=== PATIENT | male | born 1945 | race African-American/Black ===

== ENCOUNTER 2020-04-22 11:36 | Inpatient (IN) | payer OTHER ==
[~2020-04-22] VITALS: Ht 190.5 cm; Wt 123.6 kg
[2020-04-22] MEDS: ENOXAPARIN SOD INJ 40 MG/0.4 ML SYR SC SCH (00:30)
--- OUTSIDE RECORDS SUMMARY | 2020-04-22 11:39 | XMS REPORT | Clinical Summary ---
Author Author [facility] Organization [place] [facility] Address Unknown Phone Unavailable Care Team Providers Care Animal Care Provider Name Role Phone Narendra Joel MD PCP Allergies Comments Active Allergy Reactions Severity Noted Date No Known Allergies 06/11/2016 Medications End Date Status Medication Sig Dispensed Refills Start Date Active potassium chloride Take 8 mEq by 0 (KLOR-CON) 20 mEq packet mouth daily. Active metoprolol tartrate Take 25 mg by 0 (LOPRESSOR) 25 mg tablet mouth daily. Active amLODIPine (NORVASC) 10 Take 10 mg by 0 mg tablet mouth daily. Active metFORMIN (GLUCOPHAGE) Take 500 mg 0 500 mg tablet by mouth 2 (two) times a day with meals. Active levothyroxine (SYNTHROID) Take 175 mcg 0 175 mcg tablet by mouth daily. Active furosemide (LASIX) 40 mg Take 40 mg by 0 tablet mouth every evening. Active atorvastatin (LIPITOR) 10 Take 40 mg by 0 MG tablet mouth nightly. Active cefprosil (CEFZIL) 250 MG Take 250 mg 0 10/0 /201 tablet by mouth 2 9 (two) times a day. Active FLOVENT HFA 110 Inhale 2 3 mcg/actuation inhaler puffs 2 (two) 9 times a day. 09/11/2019 Discontinued (Stop Taking at Discharge) furosemide (LASIX) 40 mg Take 80 mg by 0 tablet mouth daily. 04/22/2019 levothyroxine (SYNTHROID, Take 1 tablet 30 tablet 2 LEVOXYL) 175 mcg tablet (175 mcg 9 total) by mouth daily for 30 days. 09/11/2019 Discontinued (Stop Taking at Discharge) predniSONE (DELTASONE) 10 Take 10 mg by 0 mg tablet mouth daily. 10/11/2019 apixaban (ELIQUIS) 5 mg Take 1 tablet 60 tablet 0 tablet (5 mg total) 9 by mouth 2 (two) times a day for 30 days. 10/11/2019 chlordiazepoxide-clidiniu Take 1 120 capsule 0 m (LIBRAX) 5-2.5 mg per capsule by 9 capsule mouth 4 (four) times a day before meals and nightly for 30 days. 10/12/2019 glimepiride (AMARYL) 4 MG Take 1 tablet 30 tablet 0 tablet (4 mg total) 9 by mouth daily with breakfast for 30 days. Active Problems Problem Noted Date Non-toxic multinodular goiter 03/21/2019 Obesity, Class II, BMI 35-39.9, with comorbidity 04/2016 DVT (deep venous thrombosis) 06/27/2016 Hypokalemia 06/27/2016 Anemia of other chronic disease 06/27/2016 Hyperglycemia 06/27/2016 DM neuropathy, type II diabetes mellitus 06/27/2016 Metabolic syndrome 06/27/2016 UTI (urinary tract infection) 06/27/2016 Acute massive pulmonary embolism 06/26/2016 Meningitis 06/26/2016 Essential hypertension 06/26/2016 Metabolic encephalopathy 06/26/2016 Acute hypernatremia 06/26/2016 Hypocalcemia 06/26/2016 Hyperglycemia due to type 2 diabetes mellitus 2015 Thyroid mass of unclear etiology 06/26/2016 Acute respiratory alkalosis 06/26/2016 Hyperlipidemia 06/26/2016 Hematuria 06/26/2016 Lumbar radiculopathy 06/12/2016 Encounters Care Team Description Date Type Specialty Gill Del Valle MA Appointment 12/19/2019 Documentation Cardiovascular Kane Posada MD Acute embolism and thrombosis of deep ve in of both upper extremities (HCC) (Primary Dx) 09/19/2019 Office Visit Cardiovascular Gill Del Valle MA Acute deep vein thrombosis (DVT) of righ t upper extremity, unspecified vein (HCC) (Primary Dx) 09/19/2019 Orders Only Cardiovascular Narendra Joel MD Acute embolism and thrombosis of deep ve in of right upper extremity (HCC) 09/18/2019 Hospital Radiology Encounter Narendra Joel MD Acute embolism and thrombosis of deep ve in of right upper extremity (HCC) (Primary Dx) 09/18/2019 Transcribe Access Orders Catherine Westbrook MA Appointment 09/18/2019 Documentation Cardiovascular Re Colindres, CHANTELL 09/11/2019 Patient Quality Outreach Alonzo Samaniego MD Sarti, Fernando, MD Joglekar, Swati, MD Acute deep vein thrombosis (DVT) of axil syed vein of right upper extremity (HCC) (Primary Dx); Arm swelling 09/05/2019 [facility] Internal Ri dicine - Encounter 09/11/2019 09/05/2019 Travel after 04/22/2019 Social History Date Tobacco Use Types Packs/Day Years Used Never Smoker Smokeless Tobacco: Never Used Drinks/Week oz/Week Comments Alcohol Use No Sex Assigned at Date Recorded Not on file Industry Job Start Date Occupation Not on file Not on file Not on file Travel End Travel History Travel Start No recent travel history available. Last Filed Vital Signs Reading Time Taken Comments Vital Sign 126/65 09/19/2019 9:47 AM CDT Blood Pressure 95 09/19/2019 9:47 AM CDT Pulse 36.2 C (97.2 F) 09/19/2019 9:47 AM CDT Temperature 18 09/19/2019 9:47 AM CDT Respiratory Rate 100% 09/19/2019 9:47 AM CDT Oxygen Saturation - - Inhaled Oxygen Concentration 126 kg (278 lb 9.6 oz) 09/19/2019 9:47 AM CDT Weight 185.4 cm (6' 1") 09/19/2019 9:47 AM CDT Height 36.76 09/19/2019 9:47 AM CDT Body Mass Index Plan of Treatment Health Maintenance Due Date Last Done Comments DIABETIC RETINAL EYE EXAM 1945 DIABETIC FOOT EXAM 1955 COLONOSCOPY SCREENING 1995 SHINGLES VACCINES (#1) 1995 65+ PNEUMOCOCCAL VACCINE 2010 (1 of 2 - PCV13) URINE MICROALBUMIN 06/28/2018 06/28/2017 INFLUENZA VACCINE 06/22/2020 Implants Device Identifier Shelf Expiration Date Model / Serial / L ot Implanted Type Area Manufactur er 01/20/2024 [id number] / / Clip Ligtng Weck Hemoclip Plus W/ Medical N/A: N/A WECK Tape Ti Sm - [id number] Clips for CLOSURE Implanted: Qty: 1 on 03/21/2019 by Internal SYS Dalila Calloway MD at [facility] Use OPC [id number] / / Clip Ligtng John Hemoclip Plus W/ Medical N/A: N/A WECK Tape Ti - [id number] Clips for CLOSURE Implanted: 03/21/2019 at [facility] OPC Internal SYSTE MS (Quantity not on file) Use 09/21/2023 [id number] / / [id number] Postal Service Window Clerk Mltpl Clip Ligaclip Ligtng Surgical N/A: N/A ETHICON 20 Clips 23.8cm [facility] - [id number] Implants; END O Implanted: Qty: 1 on 03/21/2019 by Expanders; JOSÉ Dalila Anthony MD at [facility] Extenders; OPC Surgical Wires Procedures Comments Procedure Name Priority Date/Time Associated Diag nosis US DUPLEX VENOUS UPPER Routine 09/18/2019 Acute e mbolism and EXTREMITY RIGHT 5:45 PM CDT thrombosis of deep vein of right upper extremity (HCC) POC GLUCOSE Routine 09/11/2019 10:35 AM CDT POC GLUCOSE Routine 09/11/2019 6:45 AM CDT PARTIAL THROMBOPLASTIN Routine 09/11/2019 TIME (PTT) 5:56 AM CDT ESTIMATED GFR Routine 09/11/2019 5:56 AM CDT IONIZED CALCIUM Routine 09/11/2019 5:56 AM CDT MAGNESIUM LEVEL Routine 09/11/2019 5:56 AM CDT COMPREHENSIVE METABOLIC Routine 09/11/2019 PANEL 5:56 AM CDT PROTHROMBIN TIME WITH INR Routine 09/11/2019 5:56 AM CDT CBC HEMOGRAM Routine 09/11/2019 5:56 AM CDT POC GLUCOSE Routine 09/10/2019 8:39 PM CDT PARTIAL THROMBOPLASTIN Timed 09/10/2019 TIME (PTT) 8:15 PM CDT POC GLUCOSE Routine 09/10/2019 4:18 PM CDT PARTIAL THROMBOPLASTIN Timed 09/10/2019 TIME (PTT) 11:40 AM CDT POC GLUCOSE Routine 09/10/2019 11:16 AM CDT POC GLUCOSE Routine 09/10/2019 6:42 AM CDT ESTIMATED GFR Routine 09/10/2019 5:23 AM CDT IONIZED CALCIUM Routine 09/10/2019 5:23 AM CDT MAGNESIUM LEVEL Routine 09/10/2019 5:23 AM CDT COMPREHENSIVE METABOLIC Routine 09/10/2019 PANEL 5:23 AM CDT PROTHROMBIN TIME WITH INR Routine 09/10/2019 5:23 AM CDT CBC HEMOGRAM Routine 09/10/2019 5:23 AM CDT PARTIAL THROMBOPLASTIN Timed 09/10/2019 TIME (PTT) 12:43 AM CDT POC GLUCOSE Routine 09/09/2019 7:34 PM CDT PARTIAL THROMBOPLASTIN STAT 09/09/2019 TIME (PTT) 6:29 PM CDT POC GLUCOSE Routine 09/09/2019 5:11 PM CDT PARTIAL THROMBOPLASTIN Timed 09/09/2019 TIME (PTT) 2:59 PM CDT POC GLUCOSE Routine 09/09/2019 12:01 PM CDT POC GLUCOSE Routine 09/09/2019 6:45 AM CDT CBC HEMOGRAM Routine 09/09/2019 6:38 AM CDT PARTIAL THROMBOPLASTIN Routine 09/09/2019 TIME (PTT) 6:38 AM CDT PROTHROMBIN TIME WITH INR Routine 09/09/2019 6:38 AM CDT POC GLUCOSE Routine 09/08/2019 9:33 PM CDT POC GLUCOSE Routine 09/08/2019 5:11 PM CDT POC GLUCOSE Routine 09/08/2019 4:26 PM CDT POC GLUCOSE Routine 09/08/2019 1:37 PM CDT POC GLUCOSE Routine 09/08/2019 1:17 PM CDT POC GLUCOSE Routine 09/08/2019 1:06 PM CDT POC GLUCOSE Routine 09/08/2019 10:02 AM CDT CBC HEMOGRAM Timed 09/08/2019 7:02 AM CDT PARTIAL THROMBOPLASTIN Routine 09/08/2019 TIME (PTT) 7:02 AM CDT PROTHROMBIN TIME WITH INR Routine 09/08/2019 7:02 AM CDT POC GLUCOSE Routine 09/08/2019 6:06 AM CDT STREP SCREEN CULTURE Routine 09/07/2019 10:05 PM CDT POC GLUCOSE Routine 09/07/2019 8:46 PM CDT THYROID STIMULATING Routine 09/07/2019 HORMONE 6:21 PM CDT POC GLUCOSE Routine 09/07/2019 4:03 PM CDT PARTIAL THROMBOPLASTIN Timed 09/07/2019 TIME (PTT) 12:12 PM CDT POC GLUCOSE Routine 09/07/2019 10:46 AM CDT POC GLUCOSE Routine 09/07/2019 6:39 AM CDT CBC HEMOGRAM Timed 09/07/2019 6:05 AM CDT PROTHROMBIN TIME WITH INR Routine 09/07/2019 6:05 AM CDT POC GLUCOSE Routine 09/07/2019 12:56 AM CDT PARTIAL THROMBOPLASTIN Timed 09/06/2019 TIME (PTT) 11:30 PM CDT POC GLUCOSE Routine 09/06/2019 8:23 PM CDT POC GLUCOSE Routine 09/06/2019 5:01 PM CDT POC GLUCOSE Routine 09/06/2019 1:42 PM CDT PARTIAL THROMBOPLASTIN Timed 09/06/2019 TIME (PTT) 10:17 AM CDT POC GLUCOSE Routine 09/06/2019 8:51 AM CDT ESTIMATED GFR Routine 09/06/2019 5:50 AM CDT PARTIAL THROMBOPLASTIN Routine 09/06/2019 TIME (PTT) 5:50 AM CDT PROTHROMBIN TIME WITH INR Routine 09/06/2019 5:50 AM CDT HC COMPLETE BLD COUNT Routine 09/06/2019 W/AUTO DIFF 5:50 AM CDT BASIC METABOLIC PANEL Routine 09/06/2019 5:50 AM CDT TYPE AND SCREEN Routine 09/06/2019 5:50 AM CDT POC GLUCOSE Routine 09/06/2019 4:53 AM CDT PARTIAL THROMBOPLASTIN Timed 09/06/2019 TIME (PTT) 2:05 AM CDT POC GLUCOSE Routine 09/05/2019 10:[address] ANGIOGRAM PE CHEST STAT 09/05/2019 9:51 PM CDT BETA-2 GLYCOPROTEIN 1 Routine 09/05/2019 ANTIBODY, IGG AND IGM 8:18 PM CDT CARDIOLIPIN ANTIBODIES Routine 09/05/2019 8:18 PM CDT PROTHROMBIN MUTATION, Routine 09/05/2019 FACTOR II, BY PCR 8:18 PM CDT FACTOR V LEIDEN BY PCR Routine 09/05/2019 8:18 PM CDT PROTEIN S ANTIGEN, FREE Routine 09/05/2019 7:27 PM CDT PROTEIN S ANTIGEN, TOTAL Routine 09/05/2019 7:27 PM CDT LUPUS ANTICOAGULANT PANEL Routine 09/05/2019 7:27 PM CDT FUNCTIONAL PROTEIN S Routine 09/05/2019 7:27 PM CDT FUNCTIONAL PROTEIN C Routine 09/05/2019 7:27 PM CDT ANTITHROMBIN III LEVEL Routine 09/05/2019 7:27 PM CDT C-REACTIVE PROTEIN Routine 09/05/2019 7:27 PM CDT FACTOR VIII ASSAY Routine 09/05/2019 7:27 PM CDT VENOUS BLOOD GAS Routine 09/05/2019 7:27 PM CDT US DUPLEX VENOUS UPPER STAT 09/05/2019 EXTREMITY RIGHT 6:45 PM CDT ECG 12-LEAD STAT 09/05/2019 6:43 PM CDT XR CHEST 2 VW STAT 09/05/2019 6:40 PM CDT ECG ED PRELIMINARY Routine 09/05/2019 INTERPRETATION 6:27 PM CDT ANTI XA, UNFRACTIONATED STAT 09/05/2019 5:25 PM CDT PARTIAL THROMBOPLASTIN STAT 09/05/2019 TIME (PTT) 5:25 PM CDT PROTHROMBIN TIME WITH INR STAT 09/05/2019 5:25 PM CDT B NATRIURETIC PEPTIDE STAT 09/05/2019 5:25 PM CDT D-DIMER STAT 09/05/2019 5:25 PM CDT ESTIMATED GFR Routine 09/05/2019 4:44 PM CDT COMPREHENSIVE METABOLIC Routine 09/05/2019 PANEL 4:44 PM CDT HC COMPLETE BLD COUNT Routine 09/05/2019 W/AUTO DIFF 4:44 PM CDT after 04/22/2019 Results * Us duplex venous upper extremity (09/18/2019 5:45 PM CDT) Only the most recent of 2 results within the time period is included. Specimen Narrative Performed At EXAMINATION: US DUPLEX VENOUS UPPER EXTREMITY RIGHT [facility] CLINICAL HISTORY: I82.621 Acute embol ism and thrombosis of deep veins of right upper extremity, DVT confirmed just dis charged from hospital severe right arm swell ling COMPARISON: None. TECHNIQUE: Grayscale, color Doppler, and spectral waveform analysis of the right upper extremity deep venous syste m was performed. FINDINGS: The right internal jugular vein demonst rates normal flow and compressibility. The right subclavian, axillary, , basil ic, cephalic, and forearm veins reveal no evidence of thrombosis. The veins demon strate normal Doppler flow and normal compressibility. There is venous thrombosis seen within the right brachial vein. The right brachial vein does not compress. The contralateral subclavian vein is pa tent. IMPRESSION: 1. Findings consistent with venous thro mbosis seen within the right brachial vein. 2. There is no other venous thrombosis. 3. These findings were called to Dr. SA GARCIA after completion of the examination. 4. The patient is currently on anticoag ulants. [id number] Procedure Note Hm Interface, Radiology Results Incoming - 09/18/2019 6:13 PM CDT EXAMINATION: US DUPLEX VENOUS UPPER EXTREMITY RIGHT CLINICAL HISTORY: I82.621 Acute embolism and thrombosis of deep veins of right upper extremity, DVT confirmed just discharged from hospital severe right arm swell ling COMPARISON: None. TECHNIQUE: Grayscale, color Doppler, and spectral waveform analysis of the right upper extremity deep venous system was performed. FINDINGS: The right internal jugular vein demonstrates normal flow and compressibility. The right subclavian, axillary, , basilic, cephalic, and forearm veins reveal no evidence of thrombosis. The veins demonstrate normal Doppler flow and normal compressibility. There is venous thrombosis seen within the right brachial vein. The right brachial vein does not compress. The contralateral subclavian vein is patent. IMPRESSION: 1. Findings consistent with venous throm bosis seen within the right brachial vein. 2. There is no other venous thrombosis. 3. These findings were called to Dr. RAH HEALY after completion of the examination. 4. The patient is currently on anticoagu lants. [id number] Performing Organization Address City/[facility] Ph one Number [facility] [address] [place] [address] * POC glucose (09/11/2019 10:35 AM CDT) Only the most recent of 29 results within the time period is included. [facility] POC glucose 160 (H) 65 - 100 mg/dL [place] Comment: JAIN Meter ID: [id number] FILLMORE Sap Architect: [facility] Specimen Performing Organization Address [facility] Ph one Number [facility] [place] [address] [place] [address] PATHOLOGY AND [facility] MEDICINE [address] * Estimated GFR (09/11/2019 5:56 AM CDT) Only the most recent of 4 results within the time period is included. [facility] Estimated GFR 76 mL/min/1.73 m2 [place] Comment: JAIN Catergory Units [facility] G1 >=90 Normal or high G2 60-89 Mildly decreased G3a 45-59 Mildly to moderately decreased G3b 30-44 Moderately to severely decreased G4 15-29 Severely decreased G5 <15 Kidney failure The eGFR was calculated using the Chronic Kidney Disease Epidemiology Collaboration (CKD-EPI) equation. Interpretation is based on recommendations of the National Kidney Foundation-Kidney Disease Outcomes Quality Initiative (NKF-KDOQI) published in 2014. Specimen Plasma specimen Performing Organization Address City/[facility] Ph one Number [facility] DEPARTMENT OF [address] [place] [address] PATHOLOGY AND GENOMIC MEDICINE [address] [place] [address] HOSPITAL * Partial thromboplastin time, activated (09/11/2019 5:56 AM CDT) Only the most recent of 14 results within the time period is included. Pathologist [facility] PTT 86.0 (H) 23.0 - 36.0 sec [place] Comment: JAIN PTT therapeutic range for FILL[facility] unfractionated heparin is HOSPITAL 61.0-112.0 seconds which corresponds to Anti-Xa 0.3-0.7 U/ml. Specimen Blood Performing Organization Address City/[facility] Ph one Number [facility] [place] [address] [place] [address] PATHOLOGY AND GENOMIC MEDICINE [address] * Prothrombin time with INR (09/11/2019 5:56 AM CDT) Only the most recent of 7 results within the time period is included. [facility] Prothrombin 14.1 11.5 - 14.5 sec [facility] INR 1.12 [place] Comment: JAIN For patients on anticoagulant FILLMORE therapy, reference ranges HOSPITAL below: Indication: INR Value Treatment of Venous Thrombosis, 2.0-3.0 pulmonary emboli, or prophylaxis of a venous thrombosis, or systemic emboli. High dose, high risk patients 3.0-4.5 with mechanical valves. NOTE: INR values over 3.0 are sometimes associated with gastrointestinal hemorrhage, especially values over 4.0. Specimen Blood Performing Organization Address City/[facility] Ph one Number [facility] DEPARTMENT OF [address] [place] [address] PATHOLOGY AND GENOMIC MEDICINE [facility] [address] [place] [address] * CBC hemogram (09/11/2019 5:56 AM CDT) Only the most recent of 5 results within the time period is included. [facility] WBC 5.5 4.2 - 11.0 k/uL [facility] RBC 4.65 4.04 - 5.86 m/uL [facility] HGB 13.1 13.0 - 17.3 g/dL [facility] HCT 41.3 34.0 - 45.0 % [facility] MCV 88.8 80.0 - 98.0 fL [facility] MCH 28.2 27.0 - 34.0 pg [facility] MCHC 31.7 31.5 - 36.5 g/dL [facility] RDW - SD 46.0 37.0 - 51.0 fL [facility] MPV 11.9 (H) 7.4 - 10.4 fL [facility] Platelet count 210 150 - 400 k/uL [facility] Nucleated RBC 0.00 /100 WBC [facility] Specimen Blood Performing Organization Address City/[facility] Ph one Number [facility] DEPARTMENT OF [address] [place] [address] PATHOLOGY AND GENOMIC MEDICINE [address] * Magnesium level (09/11/2019 5:56 AM CDT) Only the most recent of 2 results within the time period is included. Magnesium 1.70 1.60 - 2.40 mg/dL [facility] Specimen Plasma specimen Performing Organization Address City/[facility] Ph one Number [facility] DEPARTMENT OF [address] [place] [address] PATHOLOGY AND GENOMIC MEDICINE [address] * Ionized calcium (09/11/2019 5:56 AM CDT) Only the most recent of 2 results within the time period is included. pH 7.41 [facility] Ionized calcium 1.13 1.11 - 1.32 mmol/L [facility] Specimen Plasma specimen Performing Organization Address City/[facility] Ph one Number [facility] DEPARTMENT OF [address] [place] [address] PATHOLOGY AND GENOMIC MEDICINE [facility] [address] [place] [address] * Comprehensive metabolic panel (09/11/2019 5:56 AM CDT) Only the most recent of 3 results within the time period is included. Sodium 136 135 - 150 mEq/L [facility] Potassium 3.5 3.5 - 5.0 mEq/L [facility] Chloride 98 98 - 112 mEq/L [facility] CO2 22 (L) 24 - 31 mmol/L [facility] Anion gap 16@ANIO (H) 7 - 15 mEq/L [facility] BUN 18 7 - 18 mg/dL [facility] Creatinine 1.10 0.70 - 1.20 mg/dL [facility] Glucose 172 (H) 65 - 100 mg/dL [facility] Calcium 9.7 8.8 - 10.2 mg/dL [facility] Protein 8.0 6.3 - 8.3 g/dL [facility] Albumin 3.7 3.5 - 5.0 g/dL [facility] A/G ratio 0.9 0.7 - 3.8 [facility] Alkaline 66 0 - 129 U/L [place] phosphatase [facility] AST 27 10 - 50 U/L [facility] ALT 17 5 - 50 U/L [facility] Total bilirubin 0.8 0.2 - 1.2 mg/dL [facility] Specimen Plasma specimen Performing Organization Address City/[facility] Ph one Number [facility] DEPARTMENT OF [address] [place] [id number] PATHOLOGY AND GENOMIC MEDICINE [facility] [address] * Strep screen culture (09/07/2019 10:05 PM CDT) Pathologist [facility] Strep screen No beta hemolytic Streptococci [place] N culture isolate isolated JAIN Comment: HOSPITAL Specimen Information Specimen Source: Throat Specimen Site: Not otherwise specified Specimen Throat - Not otherwise specified Performing Organization Address City/[facility] Ph one Number [facility] DEPARTMENT OF [address] [place] [address] PATHOLOGY AND GENOMIC MEDICINE [id number] [place] [address] * Thyroid stimulating hormone (09/07/2019 6:21 PM CDT) TSH 2.71 0.27 - 4.20 uIU/mL [facility] Specimen Plasma specimen Performing Organization Address City/State/Zipcode Ph one Number [facility] DEPARTMENT OF [address] [place] [address] PATHOLOGY AND GENOMIC MEDICINE [facility] [address] [facility] [place]. [address] * CBC with platelet and differential (09/06/2019 5:50 AM CDT) Only the most recent of 2 results within the time period is included. WBC 9.0 4.2 - 11.0 k/uL [facility] RBC 4.27 4.04 - 5.86 m/uL [facility] HGB 12.3 (L) 13.0 - 17.3 g/dL [facility] HCT 38.4 34.0 - 45.0 % [facility] MCV 89.9 80.0 - 98.0 fL [facility] MCH 28.8 27.0 - 34.0 pg [facility] MCHC 32.0 31.5 - 36.5 g/dL [facility] RDW - SD 47.2 37.0 - 51.0 fL [facility] MPV 12.2 (H) 7.4 - 10.4 fL [facility] Platelet count 146 (L) 150 - 400 k/uL [facility] Nucleated RBC 0.00 /100 WBC [facility] Neutrophils 66.4 (H) 36.0 - 66.0 % [facility] Lymphocytes 19.2 (L) 24.0 - 44.0 % [facility] Monocytes 11.3 (H) 0.0 - 6.0 % [facility] Eosinophils 1.8 0.0 - 6.0 % [facility] Basophils 0.2 0.0 - 1.2 % [facility] Immature 1.1 (H) 0.0 - 1.0 % [place] granulocytes [facility] Specimen Blood Performing Organization Address City/State/Zipcode Ph one Number [facility] DEPARTMENT OF [facility] [place] [address] PATHOLOGY AND GENOMIC MEDICINE [facility] [place] [address] HOSPITAL * Type and screen (09/06/2019 5:50 AM CDT) Pathologist [facility] ABO grouping O [facility] Rh type POS [facility] Antibody screen NEG [place] (gel) [facility] Specimen Blood Performing Organization Address City/[facility] Ph one Number [facility] DEPARTMENT OF [facility] [place] [address] PATHOLOGY AND GENOMIC MEDICINE [facility] Kr[address] * Basic metabolic panel (09/06/2019 5:50 AM CDT) [facility] Sodium 137 135 - 150 mEq/L [facility] Potassium 3.3 (L) 3.5 - 5.0 mEq/L [facility] Chloride 98 98 - 112 mEq/L [place] [facility] CO2 26 24 - 31 mmol/L [facility] Anion gap 13@ANIO 7 - 15 mEq/L [facility] BUN 18 7 - 18 mg/dL [facility] Creatinine 1.00 0.70 - 1.20 mg/dL [facility] Glucose 126 (H) 65 - 100 mg/dL [facility] Calcium 8.9 8.8 - 10.2 mg/dL [facility] Specimen Plasma specimen Performing Organization Address City/[facility] Ph one Number [facility] DEPARTMENT OF [facility] [place] [address] PATHOLOGY AND GENOMIC MEDICINE [facility] [place] [address] HOSPITAL * CT Angiogram Pe Chest (09/05/2019 9:51 PM CDT) Specimen Narrative Performed At EXAMINATION: CT ANGIOGRAM PE CHEST HM [facility] CLINICAL HISTORY:74 years Male PE suspe cted intermediate prob positive D-dimer TECHNIQUE: CT angiographic images of the chest were obtained during intravenous administration of iodinated contrast. Computerized reformatted images and 3-D MIP images were also obt ained and archived (CT pulmonary embolus protocol). CT imaging was performed with iterative reconstruction techniques and/or automated exposure control to reduce radiation dose. COMPARISON: September 06, 2017. FINDINGS: CHEST: Pulmonary arteries: Adequate opacificat ion of the pulmonary arteries without evidence of acute pulmonary embolism. Lungs and airways: No acute airspace disease or suspicious pulmonary nodules. Pleura: Stable right lower lung pleural -based nodularity and calcifications. No pleural effusion or pneumothorax. Mediastinum and lymph nodes: No lymphad enopathy. Cardiovascular: The heart size is marcus l. Trace pericardial effusion. Mild coronary artery calcifications are pres ent. Mild atherosclerotic calcification of the aortic arch to severe. A right I J and subclavian venous stents. Upper abdomen: No suspicious abnormalit ies.The pancreas is noted to be atrophic. Bones: Severe degenerative changes at T 11/T12. No acute or suspicious osseous abnormality. Other: *Postoperative findings of partial righ t thyroidectomy. The left thyroid lobe is prominent, this may be further evaluate d with ultrasound if clinically indicated. *Gynecomastia is noted bilaterally. IMPRESSION: 1.No CT findings of acute embolism. 2.Other findings as above. [id number] Procedure Note Hm Interface, Radiology Results Incoming - 09/05/2019 10:03 PM CDT EXAMINATION: CT ANGIOGRAM PE CHEST CLINICAL HISTORY:74 years Male PE suspected intermediate prob positive D-dimer TECHNIQUE: CT angiographic images of the chest were obtained during intravenous administration of iodinated contrast. Computerized reformatted images and 3-D MIP images were also obtained and archived (CT pulmonary embolus protocol). CT imaging was performed with iterative reconstruction techniques and/or automated exposure control to reduce radiation dose. COMPARISON: September 06, 2017. FINDINGS: CHEST: Pulmonary arteries: Adequate opacification of the pulmonary arteries without evidence of acute pulmonary embolism. Lungs and airways: No acute airspace disease or suspicious pulmonary nodules. Pleura: Stable right lower lung pleural-based nodularity and calcifications. No pleural effusion or pneumothorax. Mediastinum and lymph nodes: No lymphadenopathy. Cardiovascular: The heart size is normal. Trace pericardial effusion. Mild coronary artery calcifications are present. Mild atherosclerotic calcification of the aortic arch to severe. A right IJ and subclavian venous stents. Upper abdomen: No suspicious abnormalities.The pancreas is noted to be atrophic. Bones: Severe degenerative changes at T11/T12. No acute or suspicious osseous abnormality. Other: *Postoperative findings of partial right thyroidectomy. The left thyroid lobe is prominent, this may be further evaluated with ultrasound if clinically indicated. *Gynecomastia is noted bilaterally. IMPRESSION: 1.No CT findings of acute embolism. 2.Other findings as above. 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 The HOSPITAL nucleotide at position 97619 of the Factor II gene is G on both alleles. Prothrombin Wild Type Normal [place] gene mutation [facility] Prothrombin See link below for PDF Lab [place] gene mutation ReportComment: Case Number: JAIN [id number] [facility] Specimen Blood Narrative Performed At Reviewed and signed by Sandra Cote, PhD ([facility]) [facility] Performing Organization Address [facility] one Number [facility] DEPARTMENT OF [address] [place] [address] PATHOLOGY AND GENOMIC MEDICINE [address] * Beta-2 glycoprotein 1 antibody, IgG and IgM (09/05/2019 8:18 PM CDT) Beta-2 <9.4 0.0 - 20.0 [place] glycoprotein 1 Comment: JAIN antibody, IgG Negative =<20.0 [facility] Positive >20.0 [facility] Beta-2 <9.4 0.0 - 20.0 [place] glycoprotein 1 Comment: JAIN antibody, IgM Negative =<20.0 [facility] Positive >20.0 [facility] Specimen Blood Performing Organization Address [facility] one Number [facility] DEPARTMENT OF [address] [place] [address] PATHOLOGY AND GENOMIC MEDICINE [address] * Cardiolipin antibodies (09/05/2019 8:18 PM CDT) Cardiolipin IgG 3 0 - 14 GPL [place] Comment: JAIN Negative <15 GPL HOSPITAL Indeterminate 15-20 GPL Positive >20 GPL Cardiolipin IgM 7 0 - 12 MPL [place] Comment: JAIN Negative <13 [facility]PL [facility]OSPITAL Indeterminate 13-20 MPL Positive >20 MPL Specimen Blood Performing Organization Address [facility] one Number [facility] DEPARTMENT OF [address] [place] [address] PATHOLOGY AND [facility] MEDICINE [address] * Factor V leiden by PCR (09/05/2019 8:18 PM CDT) Pathologist [facility] Interpretation 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 The nucleotide at [facility] position 1691 of the Factor V gene is G on both alleles. Factor V Leiden Wild Type [facility] Factor V Leiden See link below for PDF Lab [place] ReportComment: Case Number: JAIN [id number] HOSPITAL Specimen Blood Narrative Performed At Reviewed and signed by Sandra Cote, PhD ([facility]) [facility] Performing Organization Address [facility] one Number [facility] DEPARTMENT OF [address] [place] [address] PATHOLOGY AND [facility] MEDICINE [address] * Protein S antigen, total (09/05/2019 7:27 PM CDT) Pathologist [facility] Protein S Ag, 155 (H) 71 - 150 % [place] total [facility] Specimen Blood Performing Organization Address [facility] one Number [facility] DEPARTMENT OF [address] [place] [address] PATHOLOGY AND GENOMIC MEDICINE [address] * Protein S antigen, free (09/05/2019 7:27 PM CDT) [facility] Protein S Ag, 78 62 - 160 % [place] free [facility] Specimen Blood Performing Organization Address [facility] Ph one Number [facility] DEPARTMENT OF [address] [place] [address] PATHOLOGY AND [facility] MEDICINE [address] * Functional protein S (09/05/2019 7:27 PM CDT) Pathologist [facility] Functional 66 (L) 74 - 160 % [place] protein S Comment: JAIN Functional Protein S HOSPITAL performed. If result is decreased Total and Free Protein S Antigen will be performed. Specimen Blood Performing Organization Address City/[facility] Ph one Number [facility] DEPARTMENT OF [address] [place] [address] PATHOLOGY AND GENOMIC MEDICINE [address] * Functional protein C (09/05/2019 7:27 PM CDT) [facility] Functional 114 70 - 165 % [place] protein C [facility] Specimen Blood Performing Organization Address City/[facility] Ph one Number [facility] DEPARTMENT OF [address] [place] [address] PATHOLOGY AND GENOMIC MEDICINE [address] * Lupus anticoagulant panel (09/05/2019 7:27 PM CDT) [facility] Prothrombin 13.2 11.5 - 14.5 sec [place] time [facility] INR 1.0 [place] Comment: JAIN The International Normalized HOSPITAL Ratio (INR) is a therapeutic monitoring tool for patients who are stable on oral anticoagulant therapy. An INR of 2.0-3.0 is suggested for deep vein thrombosis/pulmonary embolism. PTT 32.0 23.0 - 36.0 sec [place] Comment: JAIN PTT therapeutic range for HOSPITAL unfractionated heparin is 61.0-112.0 seconds which corresponds to Anti-Xa 0.3-0.7 U/ml. PTT lupus 32.2 27.0 - 38.0 sec [place] anticoagulant Comment: JAIN Lupus anticoagulant (LA) panel HOSPITAL consists of PT, PTT, PTT-LA, and DRVVT. If the PTT-LA is above the normal range, the hexagonal phospholipid will be performed. If the DRVVT is above the normal range, the DRVVC confirmatory test will be performed. A normal result for both the DRVVT and the PTT-LA means the patient is negative for lupus anticoagulant. The patient is considered positive for lupus anticoagulant if either the Ratio SCR/CONF or the hexagonal phospholipid is high (positive) on two occassions at least six weeks apart. Clinical confirmation is also required for diagnosis. DRVVT 30.3 29.0 - 46.0 sec [place] Comment: JAIN This test has been modified HOSPITAL from the manufacturers instructions. The performance characteristics were determined by [facility] in a manner consistent with CLIA requirements. This test has not been cleared or approved by the U.S. Food and Drug Administration. Specimen Blood Performing Organization Address City/[facility] one Number [facility] DEPARTMENT OF [address] [place] [address] PATHOLOGY AND GENOMIC MEDICINE [address] * Antithrombin III level (09/05/2019 7:27 PM CDT) Antithrombin 98 80 - 130 % [facility] Specimen Blood Performing Organization Address [facility] one Number [facility] DEPARTMENT OF [address] [place] [address] PATHOLOGY AND GENOMIC MEDICINE [address] * Factor VIII assay (09/05/2019 7:27 PM CDT) Factor VIII 240 (H) 60 - 150 % [facility] Comment: JAIN This test has been modified HOSPITAL from the manufacturers instructions. The performance characteristics were determined by [facility] in a manner consistent with CLIA requirements. This test has not been cleared or approved by the U.S. Food and Drug Administration. Specimen Blood Performing Organization Address [facility] one Number [facility] DEPARTMENT OF [address] [place] [address] PATHOLOGY AND GENOMIC MEDICINE [address] * C-reactive protein (09/05/2019 7:27 PM CDT) CRP 2.36 (H) 0.00 - 0.50 mg/dL [facility] Specimen Blood Performing Organization Address [facility] one Number [facility] DEPARTMENT OF [address] [place] [id number] PATHOLOGY AND GENOMIC MEDICINE [facility] [address] * Venous blood gas (09/05/2019 7:27 PM CDT) Sap Architect JBAW [facility] Collection site LEFT AC [facility] O2 therapy ROOM AIR [facility] pH, venous 7.410 7.320 - 7.420 units [facility] pCO2, venous 46.4 45.0 - 51.0 mmHg [facility] pO2, venous 35.7 25.0 - 40.0 mmHg [facility] O2 saturation, 67.5 40.0 - 70.0 % [facility] Base excess, 4.8 (H) -2.0 - 2.0 mEq/L [place] venous [facility] Bicarbonate 29.4 (H) 21.0 - 28.0 mEq/L [facility] O2 content 13.3 VOL% [facility] Carboxyhemoglob 1.0 0.0 - 1.4 % [place] in Comment: JAIN Reference Ranges: [place] Carboxyhemoglobin [facility] Non smoker: 0.0 - 2.0% Smoker: 2.1 - 5.0% Heavy smoker: 5.1 - 9% Methemoglobin 0.7 0.0 - 1.0 % [facility] Hemoglobin, 14.3 14.0 - 18.0 g/dL [place] blood gas [facility] Specimen Blood Performing Organization Address City/[facility] Ph one Number [facility] DEPARTMENT OF [address] [place] [address] PATHOLOGY AND GENOMIC MEDICINE [facility] [address] [place] [address] * ECG 12 lead (09/05/2019 6:43 PM CDT) Ventricular 96 [facility] rate Atrial rate 96 [facility] NC interval 180 [facility] QRSD interval 88 [facility] QT interval 370 [facility] QTC interval 467 [facility] P axis 1 40 [facility] QRS axis 1 -6 [facility] T wave axis 37 [facility] EKG impression Normal sinus rhythm-Possible [facility] MUSE Left atrial enlargement-Borderline ECG-In automated comparison with ECG of 21-MAR-2019 07:16,-NC interval has decreased- Specimen Narrative Performed At This result has an attachment that is n ot available. 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 The heart is normal in appearance, and the lungs are clear. 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 The heart is normal in appearance, and the lungs are clear. [id number] Performing Organization Address [facility] one Number [facility] [address] [place] [address] * ECG ED Preliminary Interpretation - Not an Order (09/05/2019 6:27 PM CDT) Narrative Performed At Alonzo Samaniego MD 9 9:23 AM ECG ED Preliminary Interpretation - Not an Order Performed by: Chela Parra NP Authorized by: Alonzo Samaniego MD ECG reviewed by ED Physician in the abs ence of a scale reclamation tender: yes Previous ECG: Previous ECG: Compared to current Interpretation: Interpretation: normal Rhythm: Rhythm: sinus rhythm QRS: QRS axis: Normal Comments: The ECG interpretation was done cont emporaneously by me. This is an adequate reading. There's no acute isch emia, the rhythm is normal sinus, NC does not demonstrate AV block, QRS d oes not demonstrate a bundle branch block, ST and T waves do not show any S T elevation to suggest an acute [place]. * Anti Xa, unfractionated (09/05/2019 5:25 PM CDT) Anti Xa, <0.10 (L)Comment: Therapeutic 0.30 - 0.70 U/mL [place] unfractionated Range: 0.30 - 0.70 U/mL [facility] Specimen Blood Performing Organization Address [facility]/Zipcode Ph one Number [facility] DEPARTMENT OF [address] [facility] [place] [address] PATHOLOGY AND GENOMIC MEDICINE [facility] [address] * D-dimer (09/05/2019 5:25 PM CDT) Pathologist [facility] D-dimer 14.66 (H) 0.00 - 0.40 ug/mL [place] Comment: FEU JAIN Units are ug/ml Fibrinogen [facility] Unit. [facility] When combined with low clinical probability, D-dimer results of less than 0.5 ug/ml FEU have a good negative predictive value in excluding PE or DVT. For D-dimer results greater than 0.5 ug/ml FEU further testing is indicated if PE or DVT is suspected clinically. Elevated D-dimer results have been reported in DVT, PE, and DIC cases and may indicate the presence of a clot. D-dimer results may be elevated due to old age, , inflammatory diseases, trauma, post-operative states, sepsis, and malignancies. Specimen Blood Performing Organization Address City/[facility] Ph one Number [facility] DEPARTMENT OF [address] [place] [address] PATHOLOGY AND GENOMIC MEDICINE [facility] [address] [place] [address] * B natriuretic peptide (09/05/2019 5:25 PM CDT) Pathologist [facility] BNP 16 0 - 100 pg/mL [facility] Specimen Blood Performing Organization Address City/State/Zipcode Ph one Number [facility] DEPARTMENT OF [address] [place] [address] PATHOLOGY AND GENOMIC MEDICINE [facility] [address] [place] [address] HOSPITAL after 04/22/2019 Insurance Type Payer Benefit Subscriber ID Effective Phone Address Plan / Dates Group HMO/PPO [facility] xxxxxxxxx [id number] THCARE resent CHOICE/CHO ICE + Advance Directives For more information, please contact: [phone] Patient Slot Tag Inserter Explanation Type Date Recorded Advance Directives, 06/01/2016 8:13 PM Living Will and Medical Power of Government Documents Librarian Advance Directives, 09/25/2016 1:48 PM Living Will and Medical Power of Government Documents Librarian Advance Directives, 09/30/2016 6:16 PM Living Will and Medical Power of Government Documents Librarian Advance Directives, 10/07/2016 9:35 AM Living Will and Medical Power of Government Documents Librarian Advance Directives, 09/05/2019 7:06 PM Living Will and Medical Power of Government Documents Librarian
--- OUTSIDE RECORDS SUMMARY | 2020-04-22 11:39 | XMS REPORT ---
Author Author [facility] t Organization [facility] [place], [place] Address [address] [place] [address] Phone Unavailable Care Team Providers Care Snuff Blender Name Role Phone Marycruz NEGRETE, Narendra PCP Eligio FRANCIS, Gill Attphys Unavailable Swetha NEGRETE, Middleton Attphys Marycruz NEGRETE, Narendra Attphys Dariana FRANCIS, Catherine Attphys Unavailable Danette NEGRETE, Justin Rosado Attphys Vicky NEGRETE, Casandra Attphys Bernadine ABDUL, Re Attphys Unavailable NARENDRA JOEL Admphys Unavailable Payers Payer Name Policy Type Policy Number Effective Date Expiration Date S shalom [facility] CHOICE/CHOICE +/11/2015-PresentHMO/ PPO xxxxxxxxx 2015 00:00:00 Gabo Henry Problems Condition Name Condition Details Condition Category Status Onset Date Resolution Date Last Treatment Date Treating Clinician Comments Source Non-toxic multinodular goiter Non-toxic multinodular goiter Disease Active 2019-03-21 00:00:00 Gabo Henry Obesity, Class II, BMI 35-39.9, with comorbidity Obesi ty, Class II, BMI 35-39.9, with comorbidity Disease Active 2016-06-27 00:00:00 Gabo Henry DVT (deep venous thrombosis) DVT (deep venous thrombosis) Disease Active 2016-06-27 00:00:00 Gabo Henry Hypokalemia Hypokalemia Disease Active 2016-06-27 00:00:00 Gabo Henry Anemia of other chronic disease Anemia of other chronic disease Dis ease Active 2016-06-27 00:00:00 Gabo Henry Hyperglycemia Hyperglycemia Disease Active 2016-06-27 00:00:00 Gabo Henry DM neuropathy, type II diabetes mellitus DM neuropathy , type II diabetes mellitus Disease Active 2016-06-27 00:00:00 Flako Henry Metabolic syndrome Metabolic syndrome Disease Active 2016-06-27 00:00:0 0 Gabo Henry UTI (urinary tract infection) UTI (urinary tract infection) Disease Active 2016-06-27 00:00:00 Gabo Henry Acute massive pulmonary embolism Acute massive pulmonary embolis m Disease Active 2016-06-26 00:00:00 [place] Meningitis Meningitis Disease Active 2016-06-26 00:00:00 Gabo Henry Essential hypertension Essential hypertension Disease Active 2016-06-26 00:00:[address] Metabolic encephalopathy Metabolic encephalopathy Disease Acti ve 2016-06-26 00:00:[address] Acute hypernatremia Acute hypernatremia Disease Active 2016-06-26 00:00 :00 Gabo Henry Hypocalcemia Hypocalcemia Disease Active 2016-06-26 00:00:00 Gabo Henry Hyperglycemia due to type 2 diabetes mellitus Hypergly cemia due to type 2 diabetes mellitus Disease Active 2016-06-26 00:00:00 Gabo Henry Thyroid mass of unclear etiology Thyroid mass of unclear etiolog y Disease Active 2016-06-26 00:00:00 [place] Acute respiratory alkalosis Acute respiratory alkalosis Disease Active 2016-06-26 00:00:00 Gabo Henry Hyperlipidemia Hyperlipidemia Disease Active 2016-06-26 00:00:00 Gabo Henry Hematuria Hematuria Disease Active 2016-06-26 00:00:00 aGbo Henry Lumbar radiculopathy Lumbar radiculopathy Disease Active 00:00:00 Gabo Henry Allergies, Adverse Reactions, Alerts This patient has no known allergies or adverse reactions. Social History Social Habit Start Date Stop Date Quantity Comments Source Sex Assigned At Flako Henry Alcohol intake 2020-01-11 00:00:00 2020-01-11 00:00:00 Current non-drinker of alcohol (finding) Gabo Henry Smoking Status Start Date Stop Date Source Never smoker Gabo Iqbal t Medications Ordered Medication Name Filled Medication Name Start Date Stop Da te Current Medication? Ordering Clinician Indication Dosage Frequency Signature (SIG) Comments Components Source potassium chloride (KLOR-CON) 20 mEq packet 2019-09-19 09:53:02 Yes 8meq QD Take 8 mEq by mouth daily. Gabo Henry metoprolol tartrate (LOPRESSOR) 25 mg tablet 2019-09-19 09:53:02 Yes 25mg QD Take 25 mg by mouth daily. Gabo Henry amLODIPine (NORVASC) 10 mg tablet 2019-09-19 09:53:02 Yes 10mg QD Take 10 mg by mouth daily. Gabo Henry metFORMIN (GLUCOPHAGE) 500 mg tablet 2019-09-19 09:53:02 Ye s 500mg Q.5D Take 500 mg by mouth 2 (two) times a day with meals. Gabo Henry levothyroxine (SYNTHROID) 175 mcg tablet 2019-09-19 09:53:02 Yes 175ug QD Take 175 mcg by mouth daily. Flako Henry furosemide (LASIX) 40 mg tablet 2019-09-19 09:53:02 Yes 40mg QD Take 40 mg by mouth every evening. Gabo parker atorvastatin (LIPITOR) 10 MG tablet 2019-09-19 09:53:02 Yes 40mg QD Take 40 mg by mouth nightly. Gabo nicole glimepiride (AMARYL) 4 MG tablet 2019-09-12 00:00:00 2019-09 23:59:00 No 4mg QD Take 1 tablet (4 mg total) by mouth daily with breakfast for 30 days. Gabo Henry furosemide (LASIX) 40 mg tablet 2019-09-11 17:13:24 00:00:00 No 80mg QD Take 80 mg by mouth daily. Gabo Henry predniSONE (DELTASONE) 10 mg tablet 2019-09-11 17:13:2 4 2019-09-11 00:00:00 No 10mg QD Take 10 mg by mouth daily. Gabo Henry apixaban (ELIQUIS) 5 mg tablet 2019-09-11 00:00:00 2019-10-11 23 :59:00 No 5mg Q.5D Take 1 tablet (5 mg total) by mouth 2 (two) time s a day for 30 days. Gabo Henry chlordiazepoxide-clidinium (LIBRAX) 5-2.5 mg per capsule 2019-09-11 00:00:00 2019-10-11 23:59:00 No 1{capsule} Q.25D Take 1 capsule by mouth 4 (four) times a day before meals and nightly for 30 days. Gabo Henry cefprosil (CEFZIL) 250 MG tablet 2019-08-23 00:00:00 Yes 250mg Q.5D Take 250 mg by mouth 2 (two) times a day. Flako Henry FLOVENT HFA 110 mcg/actuation inhaler 2019-07-14 00:00:00 Yes 2{puff} Q.5D Inhale 2 puffs 2 (two) times a day. Gabo Henry levothyroxine (SYNTHROID, LEVOXYL) 175 mcg tablet 2019-03-23 00:00:00 2019-04-22 23:59:00 No 175ug QD Take 1 tablet (175 mcg total) by mouth daily for 30 days. Gabo Henry Vital Signs Vital Name Observation Time Observation Value Comments Source Systolic blood pressure 2019-09-19 09:47:00 126 mm[Hg] Gabo Henry Diastolic blood pressure 2019-09-19 09:47:00 65 mm[Hg] Gabo Henry Heart rate 2019-09-19 09:47:00 95 /min Gabo Henry Body temperature 2019-09-19 09:47:00 36.22 [place]eb[place] Teddy cummings [facility] Respiratory rate 2019-09-19 09:47:00 18 /min Teddy cum[place] [facility] Body height 2019-09-19 09:47:00 185.4 cm Gabo Henry Body weight 2019-09-19 09:47:00 126.372 kg Gabo Henry BMI 2019-09-19 09:47:00 36.76 kg/m2 Gabo Henry Oxygen saturation in Arterial blood by Pulse oximetry 2018-11 09:47:00 100 /min Gabo Henry Procedures Procedure Date / Time Performed Performing Clinician Sour e US DUPLEX VENOUS UPPER EXTREMITY RIGHT 2019-09-18 17:45:24 Narendra Joel POC GLUCOSE 2019-09-11 10:35:00 Narendra Joel POC GLUCOSE 2019-09-11 06:45:00 Narendra Joel CBC HEMOGRAM 2019-09-11 05:56:00 Kane Posada PROTHROMBIN TIME WITH INR 2019-09-11 05:56:00 Narendra Joel COMPREHENSIVE METABOLIC PANEL 2019-09-11 05:56:00 Shireen Flores Amish MAGNESIUM LEVEL 2019-09-11 05:56:00 Shireen Flores Amish IONIZED CALCIUM 2019-09-11 05:56:00 Shireen Flores ESTIMATED GFR 2019-09-11 05:56:00 Kane Posada Meth odist PARTIAL THROMBOPLASTIN TIME (PTT) 2019-09-11 05:56:00 Demetrio Posada [facility]ish POC GLUCOSE 2019-09-10 20:39:00 Narendra Joel Meth odist PARTIAL THROMBOPLASTIN TIME (PTT) 2019-09-10 20:15:00 Jonas Joel Amish POC GLUCOSE 2019-09-10 16:18:00 Narendra Joel Meth odist PARTIAL THROMBOPLASTIN TIME (PTT) 2019-09-10 11:40:00 Demetrio Posada [facility]ish POC GLUCOSE 2019-09-10 11:16:00 Narendra Joel Meth odist POC GLUCOSE 2019-09-10 06:42:00 Narendra Joel Meth odist CBC HEMOGRAM 2019-09-10 05:23:00 Kane Posada odist PROTHROMBIN TIME WITH INR 2019-09-10 05:23:00 Narendra Joel Amish COMPREHENSIVE METABOLIC PANEL 2019-09-10 05:23:00 Shireen Flores [facility] MAGNESIUM LEVEL 2019-09-10 05:23:00 Shireen Flores IONIZED CALCIUM 2019-09-10 05:23:00 Shireen Flores ESTIMATED GFR 2019-09-10 05:23:00 Shireen Flores [facility] PARTIAL THROMBOPLASTIN TIME (PTT) 2019-09-10 00:43:00 Etienne Samaniego Amish POC GLUCOSE 2019-09-09 19:34:00 Narendra Joel Meth odist PARTIAL THROMBOPLASTIN TIME (PTT) 2019-09-09 18:29:00 Etienne Samaniego Amish POC GLUCOSE 2019-09-09 17:11:00 Narendra Joel Meth odist PARTIAL THROMBOPLASTIN TIME (PTT) 2019-09-09 14:59:00 Jonas Joel Amish POC GLUCOSE 2019-09-09 12:01:00 Narendra Joel Meth odist POC GLUCOSE 2019-09-09 06:45:00 Narendra Joel odist PROTHROMBIN TIME WITH INR 2019-09-09 06:38:00 EsasirenaNarendra uston Am[facility] PARTIAL THROMBOPLASTIN TIME (PTT) 2019-09-09 06:38:00 Jonas Joel Amish CBC HEMOGRAM 2019-09-09 06:38:00 Narendra Joel Meth odist POC GLUCOSE 2019-09-08 21:33:00 Narendra Joel Meth odist POC GLUCOSE 2019-09-08 17:11:00 Narendra Joel Meth odist POC GLUCOSE 2019-09-08 16:26:00 EsasirenaNarendra Meth odist POC GLUCOSE 2019-09-08 13:37:00 Narendra Joel Meth odist POC GLUCOSE 2019-09-08 13:17:00 Narendra Joel Meth odist POC GLUCOSE 2019-09-08 13:06:00 Narendra Joel Meth odist POC GLUCOSE 2019-09-08 10:02:00 Narendra Joel Meth odist PROTHROMBIN TIME WITH INR 2019-09-08 07:02:00 Narendra Joel [place] PARTIAL THROMBOPLASTIN TIME (PTT) 2019-09-08 07:02:00 EsasirenaJonas Amish CBC HEMOGRAM 2019-09-08 07:02:00 Narendra Joel Meth odist POC GLUCOSE 2019-09-08 06:06:00 EsasirenaNarendra Meth odist STREP SCREEN CULTURE 2019-09-07 22:05:00 EsasirenaNarendra Amish POC GLUCOSE 2019-09-07 20:46:00 Narendra Joel Meth odist THYROID STIMULATING HORMONE 2019-09-07 18:21:00 EsasirenaNarendra Amish POC GLUCOSE 2019-09-07 16:03:00 MarycruzNarendra Meth odist PARTIAL THROMBOPLASTIN TIME (PTT) 2019-09-07 12:12:00 Demetrio Posada Amish POC GLUCOSE 2019-09-07 10:46:00 EsasirenaNarendra Meth odist POC GLUCOSE 2019-09-07 06:39:00 EsasirenaNarendra odist PROTHROMBIN TIME WITH INR 2019-09-07 06:05:[address] [place] CBC HEMOGRAM 2019-09-07 06:05:00 EsasirenaNarendra Meth odist POC GLUCOSE 2019-09-07 00:56:00 Narendra Joel Meth odist PARTIAL THROMBOPLASTIN TIME (PTT) 2019-09-06 23:30:00 Marycruz Jonas darcy A[place] Amish POC GLUCOSE 2019-09-06 20:23:00 MarycruzSelinamonet Ayon Meth odist POC GLUCOSE 2019-09-06 17:01:00 MarycruzNarendra Ayon Meth odist POC GLUCOSE 2019-09-06 13:42:00 MarycruzSelinamonet Ayon Meth odist PARTIAL THROMBOPLASTIN TIME (PTT) 2019-09-06 10:17:00 Demetrio Posada Amish POC GLUCOSE 2019-09-06 08:51:00 MarycruzNarendra A[place] Alessandro odist TYPE AND SCREEN 2019-09-06 05:50:00 Marycruz Narendramonet A[place] Meth odist BASIC METABOLIC PANEL 2019-09-06 05:50:00 Narendra Joel HC COMPLETE BLD COUNT W/AUTO DIFF 2019-09-06 05:50:00 Jonas Joel PROTHROMBIN TIME WITH INR 2019-09-06 05:50:00 Narendra Joel Amish PARTIAL THROMBOPLASTIN TIME (PTT) 2019-09-06 05:50:00 Marycruz Jonas darcy Henry ESTIMATED GFR 2019-09-06 05:50:00 Alonzo Samaniego Amish POC GLUCOSE 2019-09-06 04:53:00 MarycruzSelinamonet Ayon Meth odist PARTIAL THROMBOPLASTIN TIME (PTT) 2019-09-06 02:05:00 Marycruz Jonas darcy [place] POC GLUCOSE 2019-09-05 22:24:00 Marycruz Narendramonet Ayon Meth odist CT ANGIOGRAM PE CHEST 2019-09-05 21:51:14 Chela Parra FACTOR V LEIDEN BY PCR 2019-09-05 20:18:00 Narendra Jeol on [place] PROTHROMBIN MUTATION, FACTOR II, BY PCR 2019-09-05 20:18:00 Narendra Bearden i CARDIOLIPIN ANTIBODIES 2019-09-05 20:18:00 Narendra Joel on [place] BETA-2 GLYCOPROTEIN 1 ANTIBODY, IGG AND IGM 2019-09-05 20:18:00 Narendra Joel VENOUS BLOOD GAS 2019-09-05 19:27:00 Chela Parra hodist FACTOR VIII ASSAY 2019-09-05 19:27:00 Narendra Joel Me thodist C-REACTIVE PROTEIN 2019-09-05 19:27:00 Alonzo Samaniego on [place] ANTITHROMBIN III LEVEL 2019-09-05 19:27:00 Narendra Joel on [place] FUNCTIONAL PROTEIN C 2019-09-05 19:27:00 Narendra Joel LUPUS ANTICOAGULANT PANEL 2019-09-05 19:27:00 Narendra Joel PROTEIN S ANTIGEN, TOTAL 2019-09-05 19:27:00 Alonzo Samaniego PROTEIN S ANTIGEN, FREE 2019-09-05 19:27:00 Alonzo Samaniego US DUPLEX VENOUS UPPER EXTREMITY RIGHT 2019-09-05 18:45:00 Jayden Santiago ECG 12-LEAD 2019-09-05 18:43:26 Chela Parra odseun XR CHEST 2 VW 2019-09-05 18:40:30 Chela Parra Meth odist ECG ED PRELIMINARY INTERPRETATION 2019-09-05 18:27:56 Pranav Parra D-DIMER 2019-09-05 17:25:00 Chela Parra odseun B NATRIURETIC PEPTIDE 2019-09-05 17:25:00 Chela Parra PROTHROMBIN TIME WITH INR 2019-09-05 17:25:00 Chela Parra [facility]ish PARTIAL THROMBOPLASTIN TIME (PTT) 2019-09-05 17:25:00 Pranav Parra ANTI XA, UNFRACTIONATED 2019-09-05 17:25:00 Chela Parra HC COMPLETE BLD COUNT W/AUTO DIFF 2019-09-05 16:44:00 Etienne Samaniego COMPREHENSIVE METABOLIC PANEL 2019-09-05 16:44:00 Alonzo Samaniegodanita Gabo Henry ESTIMATED GFR 2019-09-05 16:44:00 Alonzo Samaniego Plan of Care Planned Activity Planned Date Details Comments Source Future Scheduled Test 2020-06-22 00:00:00 INFLUENZA VACCINE [code = INFLUENZA VACCINE] [place] [facility] Future Scheduled Test 2018-06-28 00:00:00 URINE MICROALBUMIN [code = URINE MICROALBUMIN] [place] [facility] Future Scheduled Test 2010 00:00:00 65+ PNEUMOCOCCAL V ACCINE (1 of 2 - PCV13) [code = 65+ PNEUMOCOCCAL VACCINE (1 of 2 - PCV13)] [place] Future Scheduled Test 1995 00:00:00 COLONOSCOPY SCREEN ING [code = COLONOSCOPY SCREENING] [place] Future Scheduled Test 1995 00:00:00 SHINGLES VACCINES (#1) [code = SHINGLES VACCINES (#1)] [place] Future Scheduled Test 1955 00:00:00 DIABETIC FOOT EXAM [code = DIABETIC FOOT EXAM] [place] Future Scheduled Test 1945 00:00:00 DIABETIC RETINAL E YE EXAM [code = DIABETIC RETINAL EYE EXAM] Gabo Henry Encounters Start Date/Time End Date/Time Encounter Type Admission Type [facility] Care Department Encounter ID Source 2019-09-18 00:00:00 2019-09-18 00:00:00 Outpatient REED JOEL DO [facility] [id number] Gabo Henry 2019-09-05 00:00:00 2019-09-11 00:00:00 Inpatient SELINA JOEL [facility] [id number] Gabo Henry Results Test Description Test Time Test Comments Results Result Comments Source Us duplex venous upper extremity 2019-09-18 18:10:32 Interface, Radiology Results 09/18/2019 6:13 PM CDTEXAMINATION: US DUPLEX VENOUS UPPER EXTREMITY RIGHTCLINICAL HISTORY: I82.621 Acute embolism and thrombosis of deep veins of right upper extremity, DVT confirmed just discharged from hospital severe right arm swell lingCOMPARISON: None.TECHNIQUE: Grayscale, color Doppler, and spectral waveform analysis of the right upper extremity deep venous system was performed.FINDINGS:The right internal jugular vein demonstrates normal flow and compressibility. The right subclavian, axillary, , basilic, cephalic, and forearm veins reveal no evidence of thrombosis. The veins demonstrate normal Doppler flow and normal compressibility.There is venous thrombosis seen within the right brachial vein. The right brachial vein does not compress.The contralateral subclavian vein is patent.IMPRESSION:1. Findings consistent with venous thrombosis seen within the right brachial vein.2. There is no other venous thrombosis.3. These findings were called to Dr. JOEL after completion of the examination.4. 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 The nucleotide at position 60617 of the Factor II gene is G on both alleles. Prothrombin gene mutation (test code = 31977-5) See maria nk below for PDF Lab Report Normal 79483 ZITA (test code = ZITA) Reviewed and signed by Sandra Cote, PhD ([facility]) [facility] leiden by [id number] 07:54:00* Test Item Value Reference Range Interpretation Comments Interpretation (test code = 8742766) The genomic DNA s ample is wild type for the Factor V (Leiden) mutation. The nucleotide at position 1691 of the Factor V gene is G on both alleles. Factor V Leiden (test code = 5388979) See link below for PDF Lab Re port ZITA (test code = ZITA) Reviewed and signed by Sandra Cote, PhD ([facility]) [facility] [id number] 10:36:40* Test Item Value Reference Range Interpretation Comments POC glucose (test code = 83492-0) 160 mg/dL 65-100 H Meter ID: [id number]: Jay Jay Jeter Lab Interpretation (test code = 64800-6) Abnormal [place] MethodistPartial thromboplastin time, [id number] 06:51:56* Test Item Value Reference Range Interpretation Comments PTT (test code = 3173-2) 86.0 23.0- 36.0 sec H P TT therapeutic range for unfractionated heparin is61.0-112.0 seconds which corresponds to Anti-Xa0.3-0.7 U/ml. Lab Interpretation (test code = 94076-1) Abnormal [place] MethodistProthrombin time with [id number] 06:44:02* Test Item Value Reference Range Interpretation Comments Prothrombin time (test code = 5902-2) 14.1 11.5- 14.5 sec INR (test code = 81867-5) 1.12 Fo r patients on anticoagulant therapy, reference ranges below:Indication: INR ValueTreatment of Venous Thrombosis, 2.0-3.0pulmonary emboli, or prophylaxisof a venous thrombosis, or systemic emboli.High dose, high risk patients 3.0-4.5with mechanical valves.NOTE: INR values over 3.0 are sometimes associated withgastrointestinal hemorrhage, especially values over 4.0. [facility] [id number] 06:28:42* Test Item Value Reference Range Interpretation Comments WBC (test code = 88562-4) 5.5 4.2- 11.0 k/uL RBC (test code = 36040-4) 4.65 m/uL 4.04-5.86 HGB (test code = 718-7) 13.1 g/dL 13-17.3 HCT (test code = 4544-3) 41.3 % 34-45 MCV (test code = 787-2) 88.8 fL 80-98 MCH (test code = 785-6) 28.2 pg 27-34 MCHC (test code = 786-4) 31.7 g/dL 31.5-36.5 RDW - SD (test code = 71232-0) 46.0 fL 37-51 MPV (test code = 60992-9) 11.9 fL 7.4-10.4 H Platelet count (test code = 05839-8) 210 150- 400 k/uL Nucleated RBC (test code = 24464-1) 0.00 /100 WBC Lab Interpretation (test code = 44893-5) Abnormal [facility] MethodistComprehensive metabolic [id number] 06:26:05* Test Item Value Reference Range Interpretation Comments Sodium (test code = 2951-2) 136 135- 150 mEq/L Potassium (test code = 2823-3) 3.5 3.5- 5.0 mEq/L Chloride (test code = 2075-0) 98 98- 112 mEq/L CO2 (test code = 2027-9) 22 mmol/L 24-31 L Anion gap (test code = 57795-1) 16@ANIO 7- 15 mEq/L H BUN (test code = 3094-0) 18 mg/dL 7-18 Creatinine (test code = 2160-0) 1.10 mg/dL 0.7-1.2 Glucose (test code = 2345-7) 172 mg/dL 65-100 H Calcium (test code = 71992-4) 9.7 mg/dL 8.8-10.2 Protein (test code = 2885-2) 8.0 g/dL 6.3-8.3 Albumin (test code = 1751-7) 3.7 g/dL 3.5-5 A/G ratio (test code = 1759-0) 0.9 0.7-3.8 Alkaline phosphatase (test code = 6768-6) 66 U/L 0-129 AST (test code = 1920-8) 27 U/L 10-50 ALT (test code = 1742-6) 17 U/L 5-50 Total bilirubin (test code = 1974-) 0.8 mg/dL 0.2-1.2 Lab Interpretation (test code = 24505-5) Abnormal [facility] MethodistMagnesium [id number] 06:26:02* Test Item Value Reference Range Interpretation Comments Magnesium (test code = 14336-9) 1.70 mg/dL 1.6-2.4 [place] MethodistEstimated [id number] 06:26:01* Test Item Value Reference Range Interpretation Comments Estimated GFR (test code = 5488) 76 mL/min/1.73 m2 Catergory Units InterpretationG1 >=90 Normal or highG2 60-89 Mildly puoftusiuQ7i 45-59 Mildly to moderately efigwzkqmQ5r 30-44 Moderately to severely decreasedG4 15-29 Severely decreasedG5 <15 Kidney failureThe eGFR was calculated using the Chronic Kidney Disease Epidemiology Collaboration (CKD-EPI) equation. Interpretation is based on recommendations of the National Kidney Foundation-Kidney Disease Outcomes Quality Initiative (NKF-KDOQI) published in 2014. [facility]anoIonized [id number] 06:08:21* Test Item Value Reference Range Interpretation Comments pH (test code = 2753-2) 7.41 Ionized calcium (test code = 1994-0) 1.13 mmol/L 1.11-1.32 [facility] [id number] 09:51:03* Test Item Value Reference Range Interpretation Comments Strep screen culture isolate (test code = 2246) No bet a hemolytic Streptococci isolated Specimen Information Specimen Source: ThroatSpecimen Site: Not otherwise specified [facility]ano[facility] VIII [id number] 14:21:41* Test Item Value Reference Range Interpretation Comments Factor VIII activity (test code = 3208-6) 240 % 60-150 H This test has been modified from the manufacturers instructions. The performance characteristics were determined by [facility] in a manner consistent with CLIA requirements. This test has not been cleared or approved by the U.S. Food and Drug Administration. Lab Interpretation (test code = 48528-6) Abnormal [facility] PflugervilleistAntithrombin III [id number] 12:11:41* Test Item Value Reference Range Interpretation Comments Antithrombin III (test code = 3174-0) 98 % 80-130 [facility] [id number] 12:11:41* Test Item Value Reference Range Interpretation Comments Prothrombin time (test code = 5902-2) 13.2 11.5- 14.5 sec INR (test code = 69962-8) 1.0 Th e International Normalized Ratio (INR) is a therapeutic monitoring tool for patients who are stable on oral anticoagulant therapy. An INR of 2.0-3.0 is suggested for deep vein thrombosis/pulmonary embolism. PTT (test code = 26715-1) 32.0 23.0- 36.0 sec PTT therapeutic range for unfractionated heparin is61.0-112.0 seconds which corresponds to Anti-Xa0.3-0.7 U/ml. PTT lupus anticoagulant (test code = 00721-3) 32.2 27.0- 38 .0 sec Lupus anticoagulant (LA) panel consists of PT, PTT, PTT-LA, and DRVVT. If the PTT-LA is above the normal range, the hexagonal phospholipid will be performed. If the DRVVT is abovethe normal range, the DRVVC confirmatory test will be performed.A normal result for both the DRVVT and the PTT-LA means the patient is negative for lupus anticoagulant. The patient is considered positive for lupus anticoagu lant if either the RatioSCR/CONF or the hexagonal phospholipid is high (positive) on two occassions at least six weeks apart. Clinical confirmation is also required for diagnosis. DRVVT (test code = 6303-2) 30.3 29.0- 46.0 sec This test has been modified from the manufacturers instructions. The performance characteristics were determined by [facility] in a manner consistent with CLIA requirements. This test has not been cleared or approved by the U.S. Food and Drug Administration. [facility] MethodistFunctional protein [id number] 12:11:41* Test Item Value Reference Range Interpretation Comments Functional protein C (test code = 90198-0) 114 % 70-165 [facility] MethodistProtein S antigen, [id number] 12:11:41* Test Item Value Reference Range Interpretation Comments Protein S Ag, free (test code = 52358-1) 78 % 62-160 [place] MethodistProtein S antigen, [id number] 12:11:41* Test Item Value Reference Range Interpretation Comments Protein S Ag, total (test code = 34912-7) 155 % 71-150 H Lab Interpretation (test code = 47314-4) Abnormal [facility] MethodistFunctional protein [id number] 11:37:04* Test Item Value Reference Range Interpretation Comments Functional protein S (test code = 39092-3) 66 % 74-160 L Functional Protein S performed. If result is decreased Total and Free Protein S Antigen will be performed. Lab Interpretation (test code = 80625-9) Abnormal [facility]ervilleistThyroid stimulating [id number] 18:58:26* Test Item Value Reference Range Interpretation Comments TSH (test code = 3016-3) 2.71 0.27- 4.20 uIU/mL [facility] MethodistCardiolipin [id number] 18:52:54* Test Item Value Reference Range Interpretation Comments Cardiolipin IgG (test code = 3181-5) 3 0- 14 GPL Negative <15 GPL Indeterminate 15-20 GPL Positive >20 GPL Cardiolipin IgM (test code = 3182-3) 7 0- 12 MPL Negative <13 MPL Indeterminate 13-20 MPL Positive >20 MPL [facility] Methodfort [facility] ind[facility] hospitalBeta-2 glycoprotein 1 antibody, IgG and [id number] 18:52:54 * Test Item Value Reference Range Interpretation Comments Beta-2 glycoprotein 1 antibody, IgG (test code = 61247-8) <9.4 0.0-20.0 Negative =<20.0 SGUPositive >20.0 SGU Beta-2 glycoprotein 1 antibody, IgM (test code = 94055-3) <9.4 0.0-20.0 Negative =<20.0 SMUPositive >20.0 SMU [facility] MethodistType and [id number] 07:49:00* Test Item Value Reference Range Interpretation Comments ABO grouping (test code = 883-9) O Rh type (test code = 79426-1) POS Antibody screen (gel) (test code = 890-4) NEG [facility] metabolic [id number] 06:48:41* Test Item Value Reference Range Interpretation Comments Sodium (test code = 2951-2) 137 135- 150 mEq/L Potassium (test code = 2823-3) 3.3 3.5- 5.0 mEq/L L Chloride (test code = 2075-0) 98 98- 112 mEq/L CO2 (test code = 2027-9) 26 mmol/L 24-31 Anion gap (test code = 37044-3) 13@ANIO 7- 15 mEq/L BUN (test code = 3094-0) 18 mg/dL 7-18 Creatinine (test code = 2160-0) 1.00 mg/dL 0.7-1.2 Glucose (test code = 2345-7) 126 mg/dL 65-100 H Calcium (test code = 92297-9) 8.9 mg/dL 8.8-10.2 Lab Interpretation (test code = 24567-6) Abnormal [facility] MethodistCBC with platelet and [id number] 06:29:58* Test Item Value Reference Range Interpretation Comments WBC (test code = 39901-3) 9.0 4.2- 11.0 k/uL RBC (test code = 36702-7) 4.27 m/uL 4.04-5.86 HGB (test code = 718-7) 12.3 g/dL 13-17.3 L HCT (test code = 4544-3) 38.4 % 34-45 MCV (test code = 787-2) 89.9 fL 80-98 MCH (test code = 785-6) 28.8 pg 27-34 MCHC (test code = 786-4) 32.0 g/dL 31.5-36.5 RDW - SD (test code = 29675-0) 47.2 fL 37-51 MPV (test code = 55481-9) 12.2 fL 7.4-10.4 H Platelet count (test code = 63810-9) 146 150- 400 k/uL L Nucleated RBC (test code = 75286-2) 0.00 /100 WBC Neutrophils (test code = 85191-2) 66.4 % 36-66 H Lymphocytes (test code = 67344-1) 19.2 % 24-44 L Monocytes (test code = 88431-7) 11.3 % 0-6 H Eosinophils (test code = 34001-2) 1.8 % 0-6 Basophils (test code = 71082-7) 0.2 % 0-1.2 Immature granulocytes (test code = 25887-3) 1.1 % 0-1 H Lab Interpretation (test code = 30545-7) Abnormal [facility] Pe [id number] 22:00:02Hm Interface, Radiology Results Incoming - 09/05/2019 10:03 PM CDTEXAMINATION: CT ANGIOGRAM PE CHESTCLINICAL HISTORY:74 years Male PE suspected intermediate prob positive D- dimerTECHNIQUE: CT angiographic images of the chest were obtained during intravenous administration of iodinated contrast. Computerized reformatted images and 3-D MIP images were also obtained and archived (CT pulmonary embolus protocol). CT imaging was performed with iterative reconstruction techniques and/or automated exposure control to reduce radiation dose. COMPARISON: September 06, 2017.FINDINGS:CHEST:Pulmonary arteries: Adequate opacification of the pulm onary arteries without evidence of acute pulmonary embolism.Lungs and airways: No acute airspace disease or suspicious pulmonary nodules. Pleura: Stable right lower lung pleural-based nodularity and calcifications. No pleural effusion or p neumothorax.Mediastinum and lymph nodes: No lymphadenopathy. Cardiovascular: The heart size is normal. Trace pericardial effusion. Mild coronary artery calcific ations are present. Mild atherosclerotic calcification of the aortic arch to sev ere. A right IJ and subclavian venous stents.Upper abdomen: No suspicious abnorm alities.The pancreas is noted to be atrophic.Bones: Severe degenerative changes at T11/T12. No acute or suspicious osseous abnormality.Other: *Postoperative fin dings of partial right thyroidectomy. The left thyroid lobe is prominent, this m ay be further evaluated with ultrasound if clinically indicated.*Gynecomastia is noted bilaterally.IMPRESSION:1.No CT findings of acute embolism.2.Other findings as above.[facility]-[id number] MethodistECG 12 [id number] 21:59:43* Test Item Value Reference Range Interpretation Comments Ventricular rate (test code = 253) 96 Atrial rate (test code = 255) 96 TX interval (test code = 266) 180 QRSD interval (test code = 260) 88 QT interval (test code = 264) 370 QTC interval (test code = 265) 467 P axis 1 (test code = 267) 40 QRS axis 1 (test code = 268) -6 T wave axis (test code = 270) 37 EKG impression (test code = 273) Normal sinus rhythm-P ossible Left atrial enlargement-Borderline ECG-In automated comparison with ECG of 21-MAR-2019 07:16,-TX interval has decreased- Ayon RitchieistC-reactive [id number] 20:18:20* Test Item Value Reference Range Interpretation Comments CRP (test code = 1988-5) 2.36 mg/dL 0-0.5 H Lab Interpretation (test code = 31304-9) Abnormal [facility] RitchieistVenous blood [id number] 19:44:04* Test Item Value Reference Range Interpretation Comments Barrel Cleaner (test code = 1839) JBAW Collection site (test code = 1105) LEFT AC O2 therapy (test code = 1834) ROOM AIR pH, venous (test code = 2746-6) 7.410 7.320- 7.420 units pCO2, venous (test code = 2021-4) 46.4 45.0- 51.0 mmHg pO2, venous (test code = 2705-2) 35.7 25.0- 40.0 mmHg O2 saturation, venous (test code = 58374-0) 67.5 % 40-70 Base excess, venous (test code = 1927-3) 4.8 -2.0 - 2.0 mE q-L H Bicarbonate (test code = 349) 29.4 21.0- 28.0 mEq/L H O2 content (test code = 1828) 13.3 VOL% Carboxyhemoglobin (test code = 50359-7) 1.0 % 0-1.4 Reference Ranges: CarboxyhemoglobinNon smoker: 0.0 - 2.0%Smoker: 2.1 - 5.0%Heavy smoker: 5.1 - 9% Methemoglobin (test code = 2613-8) 0.7 % 0-1 Hemoglobin, blood gas (test code = 25048-0) 14.3 g/dL Lab Interpretation (test code = 17636-4) Abnormal [facility] MethodistAnti Xa, [id number] 19:20:41* Test Item Value Reference Range Interpretation Comments Anti Xa, unfractionated (test code = 3274-8) <0.10 0.3-0.7 L Therapeutic Range: 0.30 - 0.70 U/mL Lab Interpretation (test code = 60523-9) Abnormal [facility] MethodistB natriuretic [id number] 19:05:14* Test Item Value Reference Range Interpretation Comments BNP (test code = 64610-5) 16 pg/mL 0-100 [facility] MethodistXR Chest 2 [id number] 18:48:35Hm Interface, Radiology Results - 09/05/2019 6:51 PM CDTEXAMINATION: XR CHEST 2 VWCLINICAL HISTORY: swelling to arm htnCOMPARISON: To previous study from 09/30/2016IMPRESSION:Endovascular stents are present in the in the brachi ocephalic vessels.The heart is normal in appearance, and the lungs are clear.[facility] -[id number] Community Hospital ED Preliminary Interpretation - Not an Order 2019-09-05 18:27:56Alonzo Samaniego MD 09/08/2019 9:23 [facility] [place] Interpretation - Not an OrderPerformed by: Chela Parra NPAuthorized by: Alonzo Samaniego MD ECG reviewed by ED Physician in the absence of a cvor nurse: yes Previous ECG: Previous ECG: Compared to currentInterpretation: Interpretation: normal Rhythm: Rhythm: sinus rhythm QRS: QRS axis: NormalComments: The ECG interpretation was done contemporaneously by me. This is an adequate reading. There's no acute ischemia, the rhythm is normal sinus, TX does not demonstrate AV block, QRS does not demonstrate a bundle branch block, ST and T waves do not show any ST elevation to suggest an acute IA.[facility] [id number]-[id number] 18:13:48* Test Item Value Reference Range Interpretation Comments D-dimer (test code = 21818-7) 14.66 0.00- 0.40 ug/mL FEU H Units are ug/ml Fibrinogen Equivalent Unit.When combined with low clinical probability, D-dimer results of less than 0.5 ug/ml FEU have a good negative predictive value in excluding PE or DVT. For D-dimer results greater than 0.5 ug/ml FEU further testing is indicated if PE or DVT is suspected clinically.Elevated D-dimer results have been reported in DVT, PE, and DIC cases and may indicate the pre sence of a clot. D-dimer results may be elevated due to old age, , inflammatory diseases, trauma, post-operative states, sepsis, and malignancies. Lab Interpretation (test code = 49658-4) Abnormal [facility]
--- OUTSIDE RECORDS SUMMARY | 2020-04-22 11:39 | XMS REPORT | Clinical Summary ---
Author Author [facility] Address Unknown Phone Unavailable Care Team Providers Care Planning Engineer Name Role Phone PCP Unavailable Allergies Not on File Medications Not on file Active Problems Not on file Social History Date Tobacco Use Types Packs/Day Years Used Never Assessed Sex Assigned at Date Recorded Not on file Industry Job Start Date Occupation Not on file Not on file Not on file Travel End Travel History Travel Start No recent travel history available. Last Filed Vital Signs Not on file Plan of Treatment Not on file Results Not on fileafter 04/22/2019 Insurance Payer Benefit Subscriber ID Type Phone Address Plan / Group [facility]PO S CARE POS SELECT CHOICE
[2020-04-22 12:38] LABS: BASOPHILS % 0.3 % (0.0-1.0); EOSINOPHILS # (AUTO) 0.1 (0.0-0.4); EOSINOPHILS % 1.8 % (0.0-6.0); HEMATOCRIT 36.1 % (38.2-49.6); HEMOGLOBIN 11.7 g/dL (14.0-18.0); LYMPHOCYTES # (AUTO) 1.3 (1.0-3.2); LYMPHOCYTES % 22.3 % (18.0-39.1); MEAN CORPUSCULAR HEMOGLOBIN 29.3 pg (28-32); MEAN CORPUSCULAR HGB CONC 32.4 g/dL (31-35); MEAN CORPUSCULAR VOLUME 90.3 fL (81-99); MONOCYTES # (AUTO) 0.5 (0.2-0.8); MONOCYTES % 8.4 % (4.4-11.3); NEUTROPHILS % 66.9 % (38.7-80.0); PLATELET COUNT 261 x10e3/uL (140-360); RED CELL DISTRIBUTION WIDTH 13.2 % (11.7-14.4)
[2020-04-22 13:03] LABS: ALANINE AMINOTRANSFERASE 10 IU/L (0-55); ALBUMIN 3.3 g/dL (3.5-5.0); ALBUMIN/GLOBULIN RATIO 0.8 (0.8-2.0); ALKALINE PHOSPHATASE 71 IU/L (40-150); ANION GAP 11.2 mmol/L (8-16); BLOOD UREA NITROGEN 11 mg/dL (7-26); BUN/CREATININE RATIO 12 (6-25); CALCIUM 9.3 mg/dL (8.4-10.2); CARBON DIOXIDE 31 mmol/L (22-29); CHLORIDE 103 mmol/L (98-107); CREATINE KINASE 77 IU/L (30-200); CREATININE, SERUM 0.89 mg/dL (0.72-1.25); EST GLOMERULAR FILTRATION RATE > 60 ML/MIN (60-); GLUCOSE 232 mg/dL (74-118); POTASSIUM 3.2 mmol/L (3.5-5.1); SODIUM 142 mmol/L (136-145)
--- NOTE | 2020-04-22 15:43 | Diagnostic Imaging Report ---
History: Something stuck in throat, thyroidectomy one year ago Comparison studies: None Technique: Axial, coronal and sagittal images from the skull base to the thoracic inlet. Coronal and sagittal images reconstructed from the axial data. Intravenous contrast: 100 cc of Omnipaque 300. Dose modulation, iterative reconstruction, and/or weight based adjustment of the mA/kV was utilized to reduce the radiation dose to as low as reasonably achievable. Findings: Soft tissues: No abnormalities. Grossly patent aerodigestive tract with mild radiopaque foreign bodies. Lymph nodes: No radiographically significant adenopathy. Vessels: Arteries and veins are patent. Nonstenotic atherosclerotic calcifications of the carotid bulbs Glands (parotid and submandibular): Normal in size and symmetric. No masses. Right thyroidectomy changes. Residual large left thyroid lobe with heterogeneous signal intensity and multiple hypodense nodules, the largest one in the interpolar region measuring approximately 1.5 cm Orbits: No abnormalities. Paranasal sinuses: Focal mucosal thickening at the bilateral maxillary sinuses, secondary to nonspecific inflammation Temporal bones: No abnormalities. Skull base and facial bones: Intact. Cervical spine: Multilevel degenerative foraminal narrowing, moderate bilateral at C3-4, severe bilateral at C4-5, C5-6 and C6-7. Multilevel degenerative canal stenosis, moderate at C3-4, at least severe in C4-5, C5-6 and C6-7 IMPRESSION: 1. Right hemithyroidectomy changes. Enlarged residual left thyroid lobe with 1.5 cm dominant hypodense nodule, recommend nonemergent ultrasound for further evaluation. The aerodigestive tract is patent without radiopaque foreign body. 2. Severe degenerative changes of the cervical spine as described above, if indicated nonemergent MRI recommended for further evaluation. Signed by: DR Evan Gomez M.D. on 04/22/2020 3:40 PM
--- NOTE | 2020-04-22 16:00 | Diagnostic Imaging Report ---
CT of the chest, with contrast,. History: Shortness of breath, cough. Comparison: None available. Technique: Multidetector CT scanning of the chest was performed from the level of the apices to the upper abdomen after intravenous administration of contrast. Coronal and sagittal multiplanar reformations were obtained. RADIATION DOSE: Total DLP: 969.34 mGy*cm Dose modulation, iterative reconstruction, and/or weight based adjustment of the mA/kV was utilized to reduce the radiation dose to as low as reasonably achievable. FINDINGS: Please refer to separate examination for evaluation of the structures within the neck. The thoracic aorta is normal course and caliber with extensive atherosclerotic calcifications within its course and branch vessels including the coronary arteries. The heart is not enlarged. No abnormal pericardial fluid is present. There is no abnormal axillary, mediastinal, or hilar lymph node enlargement. The trachea and proximal airways are patent. Examination of the lungs demonstrate no evidence for consolidation, pneumothorax, mass, suspicious nodule, or pleural effusion. There is a partially visualized calculus noted within the right renal pelvis measuring up to 3 cm with associated mild/moderate hydronephrosis. The remaining visualized upper abdominal contents demonstrate no significant abnormalities. There are degenerative changes of the visualized spine. The osseous structures otherwise demonstrate no evidence for acute fracture or destructive process. The extrathoracic soft tissues are unremarkable. IMPRESSION: 1. No acute intrathoracic process identified. 2. Partially visualized staghorn type calculus noted within the right renal pelvis with associated mild/moderate right sided hydronephrosis. Signed by: Dr. Sriram Velazquez MD on 04/22/2020 3:57 PM
--- NOTE | 2020-04-22 17:31 | Emergency Department Note ---
History of Present Illnes History of Present Illness Chief Complaint: Respiratory History of Present Illness This is a 74 year old male arrives to the ED with continued complaints of shortness of breath, patient states pain is worse with ambulation. Chief Complaint Comment PATIENT IN FROM HOME WITH COMPLAINTS OF SHORTNESS OF BREATH AND PRODUCTIVE COUGH X 1 WEEK; STATES HAD THYROIDECTOMY 1 YEAR AGO AND HAS NEVER HAD HIS VOICE RECOVER FROM THAT, ALSO WITH COMPLAINTS OF SHORTNESS OF BREATH X 4 WEEKS, NEW ONSET PRODUCTIVE COUGH AND SINUS DRAINAGE X 1 WEEK WITH INTERMITTANT SORE THROAT. PATIENT APPEARS IN NO DISTRESS, DENIES PAIN AT THIS TIME Historian: Patient Arrival Mode: Car Room Service Runner Required: No Onset (how long ago): day(s) Onset quality: gradual Duration (how long): day(s) Timing of current episode: constant Progression: worsening Chronicity: new Relieving factors: none Past Medical/Family History Physician Review I have reviewed the patient's past medical and family history. Any updates have been documented here. Past Medical History Recent Fever: No Clinical Suspicion of Infectio: No New/Unexplained Change in Ment: No Past Medical History: Hypertension, Diabetes, Hypothyroidism, Hyperlipedemia Other Surgery: THYROIDECTOMY Family History Family history of heart diseas: No Other Last Tetanus: UNKNOWN Review of Systems Review of Systems Constitutional: no symptoms EENTM: no symptoms Cardiovascular: chest pain Respiratory: as per HPI, dyspnea, dyspnea on exertion Gastrointestinal: no symptoms Genitourinary: no symptoms Musculoskeletal: as per HPI, joint swelling Neurological: no symptoms Psychological: no symptoms Endocrine: no symptoms Hematological/Lymphatic: no symptoms Review of other systems All other systems reviewed and negative. Physical Exam Related Data Allergies: Coded Allergies: No Known Allergies (Unverified , 04/22/20) Triage Vital Signs Vital Signs Date Time Temp Pulse Resp B/P (MAP) Pulse Ox O2 Delivery O2 Flow Rate FiO2 04/22/20 11:50 98.6 96 20 165/102 98 Vital signs reviewed: Yes Physical Exam CONSTITUTIONAL Constitutional: well-developed, obese, ill appearing HENT HENT: normocephalic, atraumatic, oropharynx clear/moist, nose normal HENT L/R: left ext ear normal, right ext ear normal EYES Eyes: PERRL, conjunctivae normal NECK Neck: ROM normal PULMONARY Pulmonary: effort normal, respiratory distress, other (decreased breath sounds diffusely) CARDIOVASCULAR Cardiovascular: regular rhythm, heart sounds normal, capillary refill normal, normal rate GASTROINTESTINAL Abdominal: soft, nontender, bowel sounds normal GENITOURINARY Genitourinary: exam deferred SKIN Skin: warm, dry MUSCULOSKELETAL Musculoskeletal: edema NEUROLOGICAL Neurological: alert, oriented x 3, no gross motor or sensory deficits PSYCHOLOGICAL Psychological: mood/affect normal, judgement normal Results Laboratory Result Diagram: 04/22/20 1159 04/22/20 1159 Laboratory Laboratory Tests Test 04/22/20 11:59 White Blood Count 5.97 x10e3/uL (4.8-10.8) Red Blood Count 4.00 x10e6/uL (4.3-5.7) Hemoglobin 11.7 g/dL (14.0-18.0) Hematocrit 36.1 % (38.2-49.6) Mean Corpuscular Volume 90.3 fL (81-99) Mean Corpuscular Hemoglobin 29.3 pg (28-32) Mean Corpuscular Hemoglobin Concent 32.4 g/dL (31-35) Red Cell Distribution Width 13.2 % (11.7-14.4) Platelet Count 261 x10e3/uL (140-360) Neutrophils (%) (Auto) 66.9 % (38.7-80.0) Lymphocytes (%) (Auto) 22.3 % (18.0-39.1) Monocytes (%) (Auto) 8.4 % (4.4-11.3) Eosinophils (%) (Auto) 1.8 % (0.0-6.0) Basophils (%) (Auto) 0.3 % (0.0-1.0) Neutrophils # (Auto) 4.0 (2.1-6.9) Lymphocytes # (Auto) 1.3 (1.0-3.2) Monocytes # (Auto) 0.5 (0.2-0.8) Eosinophils # (Auto) 0.1 (0.0-0.4) Basophils # (Auto) 0.0 (0.0-0.1) Absolute Immature Granulocyte (auto 0.02 x10e3/uL (0-0.1) Sodium Level 142 mmol/L (136-145) Potassium Level 3.2 mmol/L (3.5-5.1) Chloride Level 103 mmol/L (98-107) Carbon Dioxide Level 31 mmol/L (22-29) Anion Gap 11.2 mmol/L (8-16) Blood Urea Nitrogen 11 mg/dL (7-26) Creatinine 0.89 mg/dL (0.72-1.25) Estimat Glomerular Filtration Rate > 60 ML/MIN (60-) BUN/Creatinine Ratio 12 (6-25) Glucose Level 232 mg/dL (74-118) Calcium Level 9.3 mg/dL (8.4-10.2) Total Bilirubin 0.7 mg/dL (0.2-1.2) Aspartate Amino Transf (AST/SGOT) 10 IU/L (5-34) Alanine Aminotransferase (ALT/SGPT) 10 IU/L (0-55) Alkaline Phosphatase 71 IU/L (40-150) Creatine Kinase 77 IU/L (30-200) Creatine Kinase MB 2.50 ng/mL (0-5.0) Troponin I < 0.001 ng/mL (0-0.300) Total Protein 7.3 g/dL (6.5-8.1) Albumin 3.3 g/dL (3.5-5.0) Globulin 4.0 g/dL (2.3-3.5) Albumin/Globulin Ratio 0.8 (0.8-2.0) Lab results reviewed: Yes Imaging Imaging results reviewed: Yes Impressions IMPRESSION: 1. No acute intrathoracic process identified. 2. Partially visualized staghorn type calculus noted within the right renal pelvis with associated mild/moderate right sided hydronephrosis. Signed by: Dr. Sriram Velazquez MD on 04/22/2020 3:57 PM Critical Care Time Subsequent provider I assumed direction of critical care for this patient from another provider of m y specialty. Assessment & Plan Assessment & Plan Final Impression: (1) DYSPNEA, UNSPECIFIED Assessment & Plan 74-year-old -[place] male arrived to the ED with complaints of dyspnea, bilateral lower extremity edema noted, no history of CHF, while CT chest did not show any fluid overload clinically patient may have newly diagnosed CHF versus COPD exacerbation. Solu-Medrol, Lasix and DuoNeb given in the emergency departm ent. Pulmonology was consulted for further workup. Depart Disposition: ADMITTED Last Vital Signs Date Time Temp Pulse Resp B/P (MAP) Pulse Ox O2 Delivery O2 Flow Rate FiO2 04/22/20 16:19 97.7 79 20 172/101 100 LOW MAK, Apr 22, 2020 17:31
--- OUTSIDE RECORDS SUMMARY | 2020-04-22 18:32 | XMS REPORT | Continuity of Care Document ---
Author Author [facility] t Organization [facility] Address [address] [place] [address] Phone Unavailable Care Team Providers Care Assistant Accounting Manager Name Role Phone Marycruz NEGRETE, Narendra PCP Pranav MAK Attphys Unavailable Eligio FRANCIS, Gill Attphys Unavailable Swetha NEGRETE, Middleton Attphys Marycruz NEGRETE, Narendra Attphys Dariana FRANCIS, Catherine Attphys Unavailable Danette NEGRETE, Justin Rosado Attphys Vicky NEGRETE, Casandra Attphys Bernadine ABDUL, Re Attphys Unavailable NARENDRA JOEL Admphys Unavailable Payers Payer Name Policy Type Policy Number Effective Date Expiration Date S [facility] +/11/2015-PresentO/ PPO xxxxxxxxx 2015 00:00:00 Gabo Henry Problems [...] m Disease Active 2016-06-26 00:00:00 [place] [facility] Meningitis Meningitis Disease Active 2016-06-26 00:00:00 Gabo [...] unclear etiolog y Disease Active 2016-06-26 00:00:00 [place] [facility] Acute respiratory alkalosis Acute respiratory alkalosis Disease Active 2016-06-26 00:00:00 Gabo Henry Hyperlipidemia Hyperlipidemia Disease Active 2016-06-26 00:00:00 Gabo Henry Hematuria Hematuria Disease Active 2016-06-26 00:00:00 Gabo Henry Lumbar radiculopathy Lumbar radiculopathy Disease Active [...] temperature 2019-09-19 09:47:00 36.22 Pebbles [facility] [facility] Respiratory rate 2019-09-19 09:47:00 18 /min [facility] Body height 2019-09-19 09:47:00 185.4 cm Gabo Henry Body weight 2019-09-19 09:47:00 126.372 kg Gabo Henry BMI 2019-09-19 09:47:00 36.76 kg/m2 Gabo Henry Oxygen saturation in Arterial blood by Pulse oximetry 2018-11 09:47:00 100 /min Gabo Henry Procedures Procedure Date / Time Performed Performing Clinician [facility] e US DUPLEX VENOUS UPPER EXTREMITY RIGHT 2019-09-18 17:45:24 Narendra Joel POC GLUCOSE 2019-09-11 10:35:00 Narendra Joel odseun POC GLUCOSE 2019-09-11 06:45:00 Narendra Joel CBC HEMOGRAM 2019-09-11 05:56:00 Kane Posada PROTHROMBIN TIME WITH INR 2019-09-11 05:56:00 [place] [facility] COMPREHENSIVE METABOLIC PANEL 2019-09-11 05:56:00 Sandra Shireen [facility] MAGNESIUM LEVEL 2019-09-11 05:56:00 Sandra Shireen [facility] IONIZED CALCIUM 2019-09-11 05:56:00 Sandra Shireen [facility] ESTIMATED GFR 2019-09-11 05:56:00 Kane Posada Meth odist PARTIAL THROMBOPLASTIN TIME (PTT) 2019-09-11 05:56:00 Demetrio Posada [facility] POC GLUCOSE 2019-09-10 20:39:00 Narendra Joel Meth odist PARTIAL THROMBOPLASTIN TIME (PTT) 2019-09-10 20:15:00 Jonas Joel [facility] POC GLUCOSE 2019-09-10 16:18:00 Marycruz Narendradarcy A[facility] PARTIAL THROMBOPLASTIN TIME (PTT) 2019-09-10 11:40:00 Demetrio Posada [facility] POC GLUCOSE 2019-09-10 11:16:00 Marycruz Narendramonet [facility] odist POC GLUCOSE 2019-09-10 06:42:00 MarycruzSelinamonet Ayon [facility] odist CBC HEMOGRAM 2019-09-10 05:23:00 Kane Posada Meth odist PROTHROMBIN TIME WITH INR 2019-09-10 05:23:00 MarycruzJonasNarendradarcy parkinsonemiliano [facility] COMPREHENSIVE METABOLIC PANEL 2019-09-10 05:23:00 Shireen Flores [facility] MAGNESIUM LEVEL 2019-09-10 05:23:00 Shireen Flores [facility] IONIZED CALCIUM 2019-09-10 05:23:00 Shireen Flores [facility] ESTIMATED GFR 2019-09-10 05:23:00 Shireen Flores [facility] PARTIAL THROMBOPLASTIN TIME (PTT) 2019-09-10 00:43:00 Etienne Samaniego [facility] POC GLUCOSE 2019-09-09 19:34:00 Narendra Joel Meth odist PARTIAL THROMBOPLASTIN TIME (PTT) 2019-09-09 18:29:00 Etienne Samaniego [facility] POC GLUCOSE 2019-09-09 17:11:00 Narendra Joel Meth odist PARTIAL THROMBOPLASTIN TIME (PTT) 2019-09-09 14:59:00 EsasirenaJonas [facility] POC GLUCOSE 2019-09-09 12:01:00 Narendra Joel Meth odist POC GLUCOSE 2019-09-09 06:45:00 Narendra Joel Meth odist PROTHROMBIN TIME WITH INR 2019-09-09 06:38:00 EsasirenaNarendra [place] [facility] PARTIAL THROMBOPLASTIN TIME (PTT) 2019-09-09 06:38:00 Jonas Joel [facility] CBC HEMOGRAM 2019-09-09 06:38:00 EsasirenaNarendra Meth odist POC GLUCOSE 2019-09-08 21:33:00 EsasirenaNarendra Meth odist POC GLUCOSE 2019-09-08 17:11:00 EsasirenaNarendra Meth odist POC GLUCOSE 2019-09-08 16:26:00 MarycruzNarendra Meth odist POC GLUCOSE 2019-09-08 13:37:00 Narendra Joel Meth odist POC GLUCOSE 2019-09-08 13:17:00 Narendra Joel Meth odist POC GLUCOSE 2019-09-08 13:06:00 EsasirenaNarendra Meth odist POC GLUCOSE 2019-09-08 10:02:00 Narendra Joel odist PROTHROMBIN TIME WITH INR 2019-09-08 07:02:00 MarycruzSelinamonet [place] [facility] PARTIAL THROMBOPLASTIN TIME (PTT) 2019-09-08 07:02:00 MarycruzJonas [facility] CBC HEMOGRAM 2019-09-08 07:02:00 Narendra Joel Meth odist POC GLUCOSE 2019-09-08 06:06:00 MarycruzNarendra Meth odist STREP SCREEN CULTURE 2019-09-07 22:05:00 MarycruzNarendra [facility] POC GLUCOSE 2019-09-07 20:46:00 EsasirenaNarendra Meth odist THYROID STIMULATING HORMONE 2019-09-07 18:21:00 MarycruzNarendra [facility] POC GLUCOSE 2019-09-07 16:03:00 MarycruzNarendra Meth odist PARTIAL THROMBOPLASTIN TIME (PTT) 2019-09-07 12:12:00 Demetrio Posada [facility] POC GLUCOSE 2019-09-07 10:46:00 EsasirenaNarendra Ayon [facility] od[facility] POC GLUCOSE 2019-09-07 06:39:00 EsasirenaNarendra Meth odist PROTHROMBIN TIME WITH INR 2019-09-07 06:05:00 Narendra Joel usemiliano [facility] CBC HEMOGRAM 2019-09-07 06:05:00 MarycruzNarendra Ayon [facility] od[facility] POC GLUCOSE 2019-09-07 00:56:00 EsasirenaNarendra Ayon [facility] odist PARTIAL THROMBOPLASTIN TIME (PTT) 2019-09-06 23:30:00 Jonas Joel [facility] POC GLUCOSE 2019-09-06 20:23:00 MarycruzNarendra A[facility] od[facility] POC GLUCOSE 2019-09-06 17:01:00 MarycruzSelinamonet Ayon Meth odist POC GLUCOSE 2019-09-06 13:42:00 Marycruz Narendra [facility] PARTIAL THROMBOPLASTIN TIME (PTT) 2019-09-06 10:17:00 Demetrio Posada [facility] POC GLUCOSE 2019-09-06 08:51:00 MarycruzSelinamonet [facility] TYPE AND SCREEN 2019-09-06 05:50:00 Marycruz Narendramonet Ayon [facility] odist BASIC METABOLIC PANEL 2019-09-06 05:50:00 Narendra Joel HC COMPLETE BLD COUNT W/AUTO DIFF 2019-09-06 05:50:00 Jonas Joel PROTHROMBIN TIME WITH INR 2019-09-06 05:50:00 Narendra Joel [facility] PARTIAL THROMBOPLASTIN TIME (PTT) 2019-09-06 05:50:00 Jonas Joel ESTIMATED GFR 2019-09-06 05:50:00 Alonzo Samaniego [facility] POC GLUCOSE 2019-09-06 04:53:00 Marycruz Narendradarcy [facility] PARTIAL THROMBOPLASTIN TIME (PTT) 2019-09-06 02:05:00 Jonas Joel [facility] POC GLUCOSE 2019-09-05 22:24:[address] ANGIOGRAM PE CHEST 2019-09-05 21:51:14 Chela Parra [facility] FACTOR V LEIDEN BY PCR 2019-09-05 20:18:00 Narendra [place] [facility] PROTHROMBIN MUTATION, FACTOR II, BY PCR 2019-09-05 20:18:00 Narendra Bearden i CARDIOLIPIN ANTIBODIES 2019-09-05 20:18:00 Narendra Joel on [facility] BETA-2 GLYCOPROTEIN 1 ANTIBODY, IGG AND IGM 2019-09-05 20:18:00 Narendra Joel VENOUS BLOOD GAS 2019-09-05 19:27:00 Chela Parra Met hodist FACTOR VIII ASSAY 2019-09-05 19:27:00 Narendra Joel Me thodist C-REACTIVE PROTEIN 2019-09-05 19:27:00 Alonzo Samaniego on [facility] ANTITHROMBIN III LEVEL 2019-09-05 19:27:00 Narendra Joel on [facility] FUNCTIONAL PROTEIN C 2019-09-05 19:27:00 Narendra Joel LUPUS ANTICOAGULANT PANEL 2019-09-05 19:27:00 Narendra Joel [facility] PROTEIN S ANTIGEN, TOTAL 2019-09-05 19:27:00 Alonzo Samaniego PROTEIN S ANTIGEN, FREE 2019-09-05 19:27:00 Alonzo Samaniego US DUPLEX VENOUS UPPER EXTREMITY RIGHT 2019-09-05 18:45:00 Jayden Santiago ECG 12-LEAD 2019-09-05 18:43:26 Chela Parra odist XR CHEST 2 VW 2019-09-05 18:40:30 Chela Parra odist ECG ED PRELIMINARY INTERPRETATION 2019-09-05 18:27:56 Pranav Parra D-DIMER 2019-09-05 17:25:00 Chela Parra odist B NATRIURETIC PEPTIDE 2019-09-05 17:25:00 Chela Parra [facility] PROTHROMBIN TIME WITH INR 2019-09-05 17:25:00 Chela Parraemiliano [facility] PARTIAL THROMBOPLASTIN TIME (PTT) 2019-09-05 17:25:00 Pranav Parra ANTI XA, UNFRACTIONATED 2019-09-05 17:25:00 Chela Parra emiliano [facility] HC COMPLETE BLD COUNT W/AUTO DIFF 2019-09-05 16:44:00 Etienne Samaniego COMPREHENSIVE METABOLIC PANEL 2019-09-05 16:44:00 Alonzo Samaniego ESTIMATED GFR 2019-09-05 16:44:00 Alonzo Samaniego Plan of Care Planned Activity Planned Date Details Comments Source Future Scheduled Test 2020-06-22 00:00:00 INFLUENZA VACCINE [code = INFLUENZA VACCINE] [facility] Future Scheduled Test 2018-06-28 00:00:00 URINE MICROALBUMIN [code = URINE MICROALBUMIN] [facility] Future Scheduled Test 2010 00:00:00 65+ PNEUMOCOCCAL V ACCINE (1 of 2 - PCV13) [code = 65+ PNEUMOCOCCAL VACCINE (1 of 2 - PCV13)] [facility] Future Scheduled Test 1995 00:00:00 COLONOSCOPY SCREEN ING [code = COLONOSCOPY SCREENING] [facility] Future Scheduled Test 1995 00:00:00 SHINGLES VACCINES (#1) [code = SHINGLES VACCINES (#1)] [facility] Future Scheduled Test 1955 00:00:00 DIABETIC FOOT EXAM [code = DIABETIC FOOT EXAM] [facility] Future Scheduled Test 1945 00:00:00 DIABETIC RETINAL E YE EXAM [code = DIABETIC RETINAL EYE EXAM] Gabo Henry Encounters Start Date/Time End Date/Time Encounter Type Admission Type [facility] Care Department Encounter ID Source 2019-09-18 00:00:00 2019-09-18 00:00:00 Outpatient REED JOEL DO [facility] [id number] Gabo Henry 2019-09-05 00:00:00 2019-09-11 00:00:00 Inpatient SELINA JOEL [facility] [id number] Gabo Henry Results Test Description Test Time Test Comments Results Result Comments Source CT CHEST W 2020-04-22 15:50:00 [facility] [place] [address] Patient Name: ROSITA CLEARY MR #: [id number] : 1945 Age/Sex: 74/M Req #: [id number] Adm Physician: Ordered by: LOW MAK DO Report #: [id number] Location: ER Room/Bed: Procedure: CT/CT CHEST W Exam Date: 04/22/20 Exam Time: 1430 REPORT STATUS: Signed CT of the chest, with contrast,. History: Shortness of breath, cough. Comparison: None available. Technique: Multidetector CT scanning of the chest was performed from the level of the apices to the upper abdomen after intravenous administration of c ontrast. Coronal and sagittal multiplanar reformations were obtained. RADIATION DOSE: Total DLP: 969.34 mGy*cm Dose modulation, iterative reconstruction, and/or weight based adjustment of the mA/kV was utilized to reduce the radiation dose to as low as reasonably achievable. FINDINGS: Please refer to separate examination for evaluation of the structures within the neck. The thoracic aorta is normal course and caliber with extensive atherosclerotic calcifications within its course and branch vessels including the coronary arteries. The heart is not enlarged. No abnormal pericardial fluid is present. There is no abnormal axillary, mediastinal, or hilar lymph node enlargement. The trachea and proximal airways are patent. Examination of the lungs demonstrate no evidence for consolidation, pneumothorax, mass, suspicious nodule, or pleural effusion. There is a partially visualized calculus noted within the right renal pelvis measuring up to 3 cm with associated mild/moderate hydronephrosis. The remaining visualized upper abdominal contents demonstrate no significant abnormalities. There are degenerative changes of the visualized spine. The osseous structures otherwise demonstrate no evidence for acute fracture or destructive process. The extrathoracic soft tissues are unremarkable. IMPRESSION: 1. No acute intrathoracic process identified. 2. Partially visualized staghorn type calculus noted within the right renal pelvis with associated mild/moderate right sided hydronephrosis. Signed by: Dr. Sriram Velazquez MD on 04/22/2020 3:57 PM Dictated By: SRIRAM VELAZQUEZ MD 56 Transcribed By: GRACE on 04/22/201556 COPY TO: LOW MAK DO CT SOFT TISSUE NECK W 2020-04-22 15:32:00 [place] [address] Patient Name: ROSITA CLEARY MR #: [id number] : 1945 Age/Sex: 74/M Req #: [id number] Adm Physician: Ordered by: LOW MAK DO Report #: [id number] Location: ER Room/Bed: Procedure: [id number] CT/CT SOFT TISSUE NECK W Exam Date: 04/22/20 Exam Time: 1430 REPORT STATUS: Signed History: Something stuck in throat, thyroidectomy one year ago Comparison studies: None Technique: Axial, coronal and sagittal images from the skull base to the thoracic inlet. Coronal and sagittal images reconstructed from the axial data. Intravenous contrast: 100 cc of Omnipaque 300. Dose modulation, iterative reconstruction, and/or weight based adjustment of the mA/kV was utilized to reduce the radiation dose to as low as reasonably achievable. Findings: Soft tissues: No abnormalities. Grossly patent aerodigestive tract with mild radiopaque foreign bodies. Lymph nodes: No radiographically significant adenopathy. Vessels: Arteries and veins are patent. Nonstenotic atherosclerotic calcifications of the carotid bulbs Glands (parotid and submandibular): Normal in size and symmetric. No masses. Right thyroidectomy changes. Residual large left thyroid lobe with heterogeneous signal intensity and multiple hypodense nodules, the largest one in the interpolar region measuring approximately 1.5 cm Orbits: No abnormalities. Paranasal sinuses: Focal mucosal thickening at the bilateral maxillary sinuses, secondary to nonspecific inflammation Temporal bones: No abnormalities. Skull base and facial bones: Intact. Cervical spine: Multilevel degenerative foraminal narrowing, moderate bilateral at C3-4, severe bilateral at C4-5, C5-6 and C6- 7. Multilevel degenerative canal stenosis, moderate at C3-4, at least severe in C4-5, C5-6 and C6-7 IMPRESSION: 1. Right hemithyroidectomy changes. Enlarged residual left thyroid lobe with 1.5 cm dominant hypodense no dule, recommend nonemergent ultrasound for further evaluation. The aerodigestive tract is patent without radiopaque foreign body. 2. Severe degenerative changes of the cervical spine as described above, if indicated nonemergent MRI recommended for further evaluation. Signed by: DR Evan Gomez M.D. on 04/22/2020 3:40 PM Dictated By: EVAN OCHOA MD 1540 Transcribed By: GRACE on 04/22/20 1540 COPY TO: LOW MAK DO Us duplex venous upper extremity 2019-09-18 18:10:32 Hm Interface, Radiology Results 09/18/2019 6:13 PM CDTEXAMINATION: [...] the examination.4. 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 The nucleotide at position 57129 of the Factor II gene is G on both alleles. Prothrombin gene mutation (test code = 17193-4) See maria nk below for PDF Lab Report Normal 33115 ZITA (test code = ZITA) Reviewed and signed by Sandra Cote, PhD ([facility]) Gabo HenryFactor V leiden by [id number] 07:54:00* Test Item Value Reference Range Interpretation Comments Interpretation (test code = 7813853) The genomic DNA s ample is wild type for the Factor V (Leiden) mutation. The nucleotide at position 1691 of the Factor V gene is G on both alleles. Factor V Leiden (test code = 2731893) See link below for PDF Lab Re port ZITA (test code = ZITA) Reviewed and signed by Sandra Cote, PhD ([facility]) Gabo DuganistPOC [id number] 10:36:40* Test Item Value Reference Range Interpretation Comments POC glucose (test code = 94098-0) 160 mg/dL 65-100 H Meter ID: [id number]: Jay Jay Jeter Lab Interpretation (test code = 74411-9) Abnormal Gabo MethodistPartial thromboplastin time, [id number] 06:51:56* Test Item Value Reference Range Interpretation Comments PTT (test code = 3173-2) 86.0 23.0- 36.0 sec H P TT therapeutic range for unfractionated heparin is61.0-112.0 seconds which corresponds to Anti-Xa0.3-0.7 U/ml. Lab Interpretation (test code = 24280-4) Abnormal [facility] MethodistProthrombin time with [id number] 06:44:02* Test Item Value Reference Range Interpretation Comments Prothrombin time (test code = 5902-2) 14.1 11.5- 14.5 sec INR (test code = 45090-0) 1.12 Fo r patients on anticoagulant therapy, reference ranges below:Indication: INR ValueTreatment of Venous Thrombosis, 2.0-3.0pulmonary emboli, or prophylaxisof a venous thrombosis, or systemic emboli.High dose, high risk patients 3.0-4.5with mechanical valves.NOTE: INR values over 3.0 are sometimes associated withgastrointestinal hemorrhage, especially values over 4.0. [facility] [id number] 06:28:42* Test Item Value Reference Range Interpretation Comments WBC (test code = 13421-2) 5.5 4.2- 11.0 k/uL RBC (test code = 68677-3) 4.65 m/uL 4.04-5.86 HGB (test code = 718-7) 13.1 g/dL 13-17.3 HCT (test code = 4544-3) 41.3 % 34-45 MCV (test code = 787-2) 88.8 fL 80-98 MCH (test code = 785-6) 28.2 pg 27-34 MCHC (test code = 786-4) 31.7 g/dL 31.5-36.5 RDW - SD (test code = 50995-0) 46.0 fL 37-51 MPV (test code = 64405-8) 11.9 fL 7.4-10.4 H Platelet count (test code = 86628-0) 210 150- 400 k/uL Nucleated RBC (test code = 49141-3) 0.00 /100 WBC Lab Interpretation (test code = 71310-3) Abnormal [facility] [id number] 06:26:05* Test Item Value Reference Range Interpretation Comments Sodium (test code = 2951-2) 136 135- 150 mEq/L Potassium (test code = 2823-3) 3.5 3.5- 5.0 mEq/L Chloride (test code = 2075-0) 98 98- 112 mEq/L CO2 (test code = 8-9) 22 mmol/L 24-31 L Anion gap (test code = 21158-4) 16@ANIO 7- 15 mEq/L H BUN (test code = 3094-0) 18 mg/dL 7-18 Creatinine (test code = 2160-0) 1.10 mg/dL 0.7-1.2 Glucose (test code = 2345-7) 172 mg/dL 65-100 H Calcium (test code = 63507-9) 9.7 mg/dL 8.8-10.2 Protein (test code = 2885-2) 8.0 g/dL 6.3-8.3 Albumin (test code = 1751-7) 3.7 g/dL 3.5-5 A/G ratio (test code = 1759-0) 0.9 0.7-3.8 Alkaline phosphatase (test code = 6768-6) 66 U/L 0-129 AST (test code = 1920-8) 27 U/L 10-50 ALT (test code = 1742-6) 17 U/L 5-50 Total bilirubin (test code = 1975-2) 0.8 mg/dL 0.2-1.2 Lab Interpretation (test code = 10337-9) Abnormal Gabo MethodistMagnesium [id number] 06:26:02* Test Item Value Reference Range Interpretation Comments Magnesium (test code = 74714-3) 1.70 mg/dL 1.6-2.4 Gabo MethodistEstimated [id number] 06:26:01* Test Item Value Reference Range Interpretation Comments Estimated GFR (test code = 5488) 76 mL/min/1.73 m2 Catergory Units InterpretationG1 >=90 Normal or highG2 60-89 Mildly uuqyabelgR1d 45-59 Mildly to moderately lyxrttqddP6l 30-44 Moderately to severely decreasedG4 15-29 Severely decreasedG5 <15 Kidney failureThe eGFR was calculated using the Chronic Kidney Disease Epidemiology Collaboration (CKD-EPI) equation. Interpretation is based on recommendations of the National Kidney Foundation-Kidney Disease Outcomes Quality Initiative (NKF-KDOQI) published in 2014. Gabo MethodistIonized [id number] 06:08:21* Test Item Value Reference Range Interpretation Comments pH (test code = 2753-2) 7.41 Ionized calcium (test code = 1994-0) 1.13 mmol/L 1.11-1.32 Gabo MethodistStrep screen [id number] 09:51:03* Test Item Value Reference Range Interpretation Comments Strep screen culture isolate (test code = 2246) No bet a hemolytic Streptococci isolated Specimen Information Specimen Source: ThroatSpecimen Site: Not otherwise specified [facility] [id number] 14:21:41* Test Item Value Reference Range Interpretation Comments Factor VIII activity (test code = 3208-6) 240 % 60-150 H This test has been modified from the manufacturers instructions. The performance characteristics were determined by [facility] in a manner consistent with CLIA requirements. This test has not been cleared or approved by the U.S. Food and Drug Administration. Lab Interpretation (test code = 46052-6) Abnormal [facility]stistAntithrombin III [id number] 12:11:41* Test Item Value Reference Range Interpretation Comments Antithrombin III (test code = 3174-0) 98 % 80-130 [facility] CenterLupus anticoagulant [id number] 12:11:41* Test Item Value Reference Range Interpretation Comments Prothrombin time (test code = 5902-2) 13.2 11.5- 14.5 sec INR (test code = 24485-0) 1.0 Th e International Normalized Ratio (INR) is a therapeutic monitoring tool for patients who are stable on oral anticoagulant therapy. An INR of 2.0-3.0 is suggested for deep vein thrombosis/pulmonary embolism. PTT (test code = 80645-4) 32.0 23.0- 36.0 sec PTT therapeutic range for unfractionated heparin is61.0-112.0 seconds which corresponds to Anti-Xa0.3-0.7 U/ml. PTT lupus anticoagulant (test code = 83507-5) 32.2 27.0- 38 .0 sec Lupus anticoagulant [...] instructions. The performance characteristics were determined by [facility] in a manner consistent with CLIA requirements. This test has not been cleared or approved by the U.S. Food and Drug Administration. [place] MethodistFunctional protein [id number] 12:11:41* Test Item Value Reference Range Interpretation Comments Functional protein C (test code = 75110-5) 114 % 70-165 [place] MethodistProtein S antigen, [id number] 12:11:41* Test Item Value Reference Range Interpretation Comments Protein S Ag, free (test code = 21026-8) 78 % 62-160 [place] MethodistProtein S antigen, [id number] 12:11:41* Test Item Value Reference Range Interpretation Comments Protein S Ag, total (test code = 17647-3) 155 % 71-150 H Lab Interpretation (test code = 59429-6) Abnormal [place] MethodistFunctional protein [id number] 11:37:04* Test Item Value Reference Range Interpretation Comments Functional protein S (test code = 66603-3) 66 % 74-160 L Functional Protein S performed. If result is decreased Total and Free Protein S Antigen will be performed. Lab Interpretation (test code = 03670-5) Abnormal [facility]stistThyroid stimulating [id number] 18:58:26* Test Item Value Reference Range Interpretation Comments TSH (test code = 3016-3) 2.71 0.27- 4.20 uIU/mL [facility]stistCardiolipin [id number] 18:52:54* Test Item Value Reference Range Interpretation Comments Cardiolipin IgG (test code = 3181-5) 3 0- 14 GPL Negative <15 GPL Indeterminate 15-20 GPL Positive >20 GPL Cardiolipin IgM (test code = 3182-3) 7 0- 12 MPL Negative <13 MPL Indeterminate 13-20 MPL Positive >20 MPL [facility]stistBeta-2 glycoprotein 1 antibody, IgG and [id number] 18:52:54 * Test Item Value Reference Range Interpretation Comments Beta-2 glycoprotein 1 antibody, IgG (test code = 27565-9) <9.4 0.0-20.0 Negative =<20.0 SGUPositive >20.0 SGU Beta-2 glycoprotein 1 antibody, IgM (test code = 62319-5) <9.4 0.0-20.0 Negative =<20.0 SMUPositive >20.0 [facility] [place] MethodistType and [id number] 07:49:00* Test Item Value Reference Range Interpretation Comments ABO grouping (test code = 883-9) O Rh type (test code = 68688-5) POS Antibody screen (gel) (test code = 890-4) NEG [facility] MethodistBasic metabolic [id number] 06:48:41* Test Item Value Reference Range Interpretation Comments Sodium (test code = 2951-2) 137 135- 150 mEq/L Potassium (test code = 2823-3) 3.3 3.5- 5.0 mEq/L L Chloride (test code = 2075-0) 98 98- 112 mEq/L CO2 (test code = 8-9) 26 mmol/L 24-31 Anion gap (test code = 45238-5) 13@ANIO 7- 15 mEq/L BUN (test code = 3094-0) 18 mg/dL 7-18 Creatinine (test code = 2160-0) 1.00 mg/dL 0.7-1.2 Glucose (test code = 2345-7) 126 mg/dL 65-100 H Calcium (test code = 53264-8) 8.9 mg/dL 8.8-10.2 Lab Interpretation (test code = 43718-4) Abnormal [place] MethodistCB with platelet and mdwphqnkiplp9857-62-13 06:29:58* Test Item Value Reference Range Interpretation Comments WBC (test code = 15108-3) 9.0 4.2- 11.0 k/uL RBC (test code = 91268-9) 4.27 m/uL 4.04-5.86 HGB (test code = 718-7) 12.3 g/dL 13-17.3 L HCT (test code = 4544-3) 38.4 % 34-45 MCV (test code = 787-2) 89.9 fL 80-98 MCH (test code = 785-6) 28.8 pg 27-34 MCHC (test code = 786-4) 32.0 g/dL 31.5-36.5 RDW - SD (test code = 67390-1) 47.2 fL 37-51 MPV (test code = 69174-4) 12.2 fL 7.4-10.4 H Platelet count (test code = 95379-8) 146 150- 400 k/uL L Nucleated RBC (test code = 06109-5) 0.00 /100 WBC Neutrophils (test code = 70220-5) 66.4 % 36-66 H Lymphocytes (test code = 31233-9) 19.2 % 24-44 L Monocytes (test code = 97793-8) 11.3 % 0-6 H Eosinophils (test code = 63721-9) 1.8 % 0-6 Basophils (test code = 08963-0) 0.2 % 0-1.2 Immature granulocytes (test code = 03940-2) 1.1 % 0-1 H Lab Interpretation (test code = 13821-2) Abnormal [place] [facility] Angiogram Pe [id number] 22:00:02Hm Interface, Radiology Results - 09/05/2019 10:03 PM CDTEXAMINATION: CT ANGIOGRAM [...] CT findings of acute embolism.2.Other findings as above.[facility]-[id number] MethodistECG 12 [id number] 21:59:43* Test Item Value Reference Range Interpretation Comments Ventricular rate (test code = 253) 96 Atrial rate (test code = 255) 96 AK interval (test code = 266) 180 QRSD [...] ECG-In automated comparison with ECG of 21-MAR-2019 07:16,-AK interval has decreased- [facility] MethodistC-reactive [id number] 20:18:20* Test Item Value Reference Range Interpretation Comments CRP (test code = 1987-) 2.36 mg/dL 0-0.5 H Lab Interpretation (test code = 75602-7) Abnormal [place] MethodistVenous blood [id number] 19:44:04* Test Item Value Reference Range Interpretation Comments Police Service Technician (test code = 1839) JB Collection site (test code = 1105) LEFT AC O2 therapy (test code = 1834) ROOM AIR pH, venous (test code = 2746-6) 7.410 7.320- 7.420 units pCO2, venous (test code = 2020-4) 46.4 45.0- 51.0 mmHg pO2, venous (test code = 2705-2) 35.7 25.0- 40.0 mmHg O2 saturation, venous (test code = 99178-1) 67.5 % 40-70 Base excess, venous (test code = 1927-3) 4.8 -2.0 - 2.0 mE q-L H Bicarbonate (test code = 349) 29.4 21.0- 28.0 mEq/L H O2 content (test code = 1828) 13.3 VOL% Carboxyhemoglobin (test code = 84865-4) 1.0 % 0-1.4 Reference Ranges: CarboxyhemoglobinNon smoker: 0.0 - 2.0%Smoker: 2.1 - 5.0%Heavy smoker: 5.1 - 9% Methemoglobin (test code = 2613-8) 0.7 % 0-1 Hemoglobin, blood gas (test code = 41109-3) 14.3 g/dL Lab Interpretation (test code = 27997-2) Abnormal [facility] MethodistAnti Xa, lavjkixnzptcsp5227-71-73 19:20:41* Test Item Value Reference Range Interpretation Comments Anti Xa, unfractionated (test code = 3274-8) <0.10 0.3-0.7 L Therapeutic Range: 0.30 - 0.70 U/mL Lab Interpretation (test code = 29648-4) Abnormal [place] MethodistB natriuretic [id number] 19:05:14* Test Item Value Reference Range Interpretation Comments BNP (test code = 58726-0) 16 pg/mL 0-100 [place] MethodistXR Chest 2 [id number] 18:48:35Hm Interface, Radiology Results 09/05/2019 6:51 PM CDTEXAMINATION: XR CHEST 2 VWCLINICAL HISTORY: swelling to arm htnCOMPARISON: To previous study from 09/30/2016IMPRESSION:Endovascular stents are present in the in the brachi ocephalic vessels.The heart is normal in appearance, and the lungs are clear.[facility] -[id number] RitchieistJIM [facility] [place] [facility] Preliminary Interpretation - Not an Order 2019-09-05 18:27:56Alonzo Samaniego MD 09/08/2019 9:23 [facility] ED Preliminary Interpretation - Not an OrderPerformed by: Chela Parra NPAuthorized by: Alonzo Samaniego MD ECG reviewed by ED Physician in the absence of a permit review assistant: yes Previous ECG: Previous ECG: Compared to currentInterpretation: Interpretation: normal Rhythm: Rhythm: sinus rhythm QRS: QRS axis: NormalComments: The ECG interpretation was done contemporaneously by me. This is an adequate reading. There's no acute ischemia, the rhythm is normal sinus, AK does not demonstrate AV block, QRS does not demonstrate a bundle branch block, ST and T waves do not show any ST elevation to suggest an acute OK.Gabo HenryCwctewrmaN-zajvv5192-00-15 18:13:48* Test Item Value Reference Range Interpretation Comments D-dimer (test code = 06913-1) 14.66 0.00- 0.40 ug/mL FEU H Units [...] and malignancies. Lab Interpretation (test code = 26805-4) Abnormal Gabo Henry
--- OUTSIDE RECORDS SUMMARY | 2020-04-22 18:32 | XMS REPORT | Clinical Summary ---
Author Author [facility] Address Unknown Phone Unavailable Care Team Providers Care [employer] Professor Name Role Phone PCP Unavailable Allergies Not [...] ID Type Phone Address Plan / Group [facility] H[facility]PO S CARE POS SELECT CHOICE
--- OUTSIDE RECORDS SUMMARY | 2020-04-22 18:32 | XMS REPORT | Clinical Summary ---
Author Author [facility] Organization [facility] Address Unknown Phone Unavailable Care Team Providers Care Production Control Expediter Name Role Phone Narendra Joel MD PCP [...] extremity (HCC) (Primary Dx); Arm swelling 09/05/2019 [facility] Internal La dicine - Encounter 09/11/2019 09/05/2019 Travel after [...] ot Implanted Type Area Manufactur er 01/20/2024 [id number] / / Clip Ligtng Weck Hemoclip Plus W/ Medical N/A: N/A WECK Tape Ti Sm - [id number] Clips for CLOSURE Implanted: Qty: 1 on 03/21/2019 by Internal SYS Dalila Calloway MD at [facility] Use OPC [id number] / / Clip Ligtng John Hemoclip Plus W/ Medical N/A: N/A WECK Tape Ti - [id number] Clips for CLOSURE Implanted: 03/21/2019 at [facility] OPC Internal SYSTE MS (Quantity not on file) Use 09/21/2023 [id number] / / [id number] Diesel Instructor Mltpl Clip Ligaclip Ligtng Surgical N/A: N/A ETHICON 20 Clips 23.8cm [facility] - [id number] Implants; END O Implanted: Qty: 1 on 03/21/2019 by Expanders; JOSÉ Dalila Anthony MD at [facility] Extenders; OPC Surgical Wires Procedures Comments Procedure [...] The patient is currently on anticoag ulants. [id number] Procedure Note Hm Interface, Radiology Results Incoming [...] The patient is currently on anticoagu lants. [id number] Performing Organization Address City/[facility] Cent[facility] Ph one Number [facility]IANT [address] [place] [address] * POC glucose (09/11/2019 10:35 AM CDT) Only the most recent of 29 results within the time period is included. [facility] POC glucose 160 (H) 65 - 100 mg/dL [place] Comment: RASTAFARI Meter ID: [id number] DUNDAS District Manager Major Accounts Sales: [facility] Specimen Performing Organization Address [facility] Ph one Number [facility] [place] [address] [place] [address] PATHOLOGY AND [facility] MEDICINE [address] * Estimated GFR (09/11/2019 5:56 AM CDT) Only the most recent of 4 results within the time period is included. [facility] Estimated GFR 76 mL/min/1.73 m2 [place] Comment: RASTAFARI Catergory Units [facility] G1 >=90 Normal or high G2 60-89 [...] 2014. Specimen Plasma specimen Performing Organization Address City/[facility] Ph one Number [facility] [place] OF [address] [place] [address] PATHOLOGY AND GENOMIC MEDICINE [address] [place] [address] HOSPITAL * Partial thromboplastin time, activated (09/11/2019 5:56 AM CDT) Only the most recent of 14 results within the time period is included. Pathologist [facility] PTT 86.0 (H) 23.0 - 36.0 sec [place] Comment: RASTAFARI PTT therapeutic range for DUNDAS unfractionated heparin is HOSPITAL 61.0-112.0 seconds which corresponds to Anti-Xa 0.3-0.7 U/ml. Specimen Blood Performing Organization Address City/[facility] Ph one Number [facility] [place] [address] [place] [address] PATHOLOGY AND GENOMIC MEDICINE [address] * Prothrombin time with INR (09/11/2019 5:56 AM CDT) Only the most recent of 7 results within the time period is included. [facility] Prothrombin 14.1 11.5 - 14.5 sec [facility] INR 1.12 [place] Comment: RASTAFARI For patients on anticoagulant DUNDAS therapy, reference ranges HOSPITAL below: Indication: INR Value Treatment of Venous Thrombosis, 2.0-3.0 pulmonary emboli, or prophylaxis of a venous thrombosis, or systemic emboli. High dose, high risk patients 3.0-4.5 with mechanical valves. NOTE: INR values over 3.0 are sometimes associated with gastrointestinal hemorrhage, especially values over 4.0. Specimen Blood Performing Organization Address City/[facility] Ph one Number [facility] [place] OF [address] [place] [address] PATHOLOGY AND GENOMIC MEDICINE [facility] [address] [place] [address] * CBC hemogram (09/11/2019 5:56 AM CDT) Only the most recent of 5 results within the time period is included. [facility] WBC 5.5 4.2 - 11.0 k/uL [facility] RBC 4.65 4.04 - 5.86 m/uL [facility] HGB 13.1 13.0 - 17.3 g/dL [facility] HCT 41.3 34.0 - 45.0 % [facility] MCV 88.8 80.0 - 98.0 fL [facility] MCH 28.2 27.0 - 34.0 pg [facility] MCHC 31.7 31.5 - 36.5 g/dL [facility] RDW - SD 46.0 37.0 - 51.0 fL [facility] MPV 11.9 (H) 7.4 - 10.4 fL [facility] Platelet count 210 150 - 400 k/uL [facility] Nucleated RBC 0.00 /100 WBC [facility] Specimen Blood Performing Organization Address City/[facility] Ph one [facility] DE[place]MENT OF [address] [place] [address] PATHOLOGY AND GENOMIC MEDICINE [address] * Magnesium level (09/11/2019 5:56 AM CDT) Only the most recent of 2 results within the time period is included. Magnesium 1.70 1.60 - 2.40 mg/dL [facility] Specimen Plasma specimen Performing Organization Address City/[facility] Ph one Number [facility] [place] OF [address] [place] [address] PATHOLOGY AND GENOMIC MEDICINE [address] * Ionized calcium (09/11/2019 5:56 AM CDT) Only the most recent of 2 results within the time period is included. pH 7.41 [facility] Ionized calcium 1.13 1.11 - 1.32 mmol/L [facility] Specimen Plasma specimen Performing Organization Address City/[facility] Ph one Number [facility] [place] OF [address] [place] [address] PATHOLOGY AND GENOMIC MEDICINE [facility] [address] [place] [address] * Comprehensive metabolic panel (09/11/2019 5:56 AM CDT) Only the most recent of 3 results within the time period is included. Sodium 136 135 - 150 mEq/L [facility] Potassium 3.5 3.5 - 5.0 mEq/L [facility] Chloride 98 98 - 112 mEq/L [facility] CO2 22 (L) 24 - 31 mmol/L [facility] Anion gap 16@ANIO (H) 7 - 15 mEq/L [facility] BUN 18 7 - 18 mg/dL [facility] Creatinine 1.10 0.70 - 1.20 mg/dL [facility] Glucose 172 (H) 65 - 100 mg/dL [facility] Calcium 9.7 8.8 - 10.2 mg/dL [facility] Protein 8.0 6.3 - 8.3 g/dL [facility] Albumin 3.7 3.5 - 5.0 g/dL [facility] A/G ratio 0.9 0.7 - 3.8 [facility] Alkaline 66 0 - 129 U/L [place] phosphatase [facility] AST 27 10 - 50 U/L [facility] ALT 17 5 - 50 U/L [facility] Total bilirubin 0.8 0.2 - 1.2 mg/dL [facility] Specimen Plasma specimen Performing Organization Address City/[facility] Ph one Number [facility] [place] OF [address] [place] [id number] PATHOLOGY AND GENOMIC MEDICINE [facility] [address] * Strep screen culture (09/07/2019 10:05 PM CDT) Pathologist [facility] Strep screen No beta hemolytic Streptococci [place] N culture isolate isolated RASTAFARI Comment: HOSPITAL Specimen Information Specimen Source: Throat Specimen Site: Not otherwise specified Specimen Throat - Not otherwise specified Performing Organization Address City/[facility] Ph one Number [facility] DEPARTMENT OF [address] [place] [address] PATHOLOGY AND GENOMIC MEDICINE [id number] [place] [address] * Thyroid stimulating hormone (09/07/2019 6:21 PM CDT) TSH 2.71 0.27 - 4.20 uIU/mL [facility] Specimen Plasma specimen Performing Organization Address City/State/Zipcode Ph one Number [facility] [place] OF [address] [place] [address] PATHOLOGY AND GENOMIC MEDICINE [facility] [address] [facility] [place]. [address] * CBC with platelet and differential (09/06/2019 5:50 AM CDT) Only the most recent of 2 results within the time period is included. WBC 9.0 4.2 - 11.0 k/uL [facility] RBC 4.27 4.04 - 5.86 m/uL [facility] HGB 12.3 (L) 13.0 - 17.3 g/dL [facility] HCT 38.4 34.0 - 45.0 % [facility] MCV 89.9 80.0 - 98.0 fL [facility] MCH 28.8 27.0 - 34.0 pg [facility] MCHC 32.0 31.5 - 36.5 g/dL [facility] RDW - SD 47.2 37.0 - 51.0 fL [facility] MPV 12.2 (H) 7.4 - 10.4 fL [facility] Platelet count 146 (L) 150 - 400 k/uL [facility] Nucleated RBC 0.00 /100 WBC [facility] Neutrophils 66.4 (H) 36.0 - 66.0 % [facility] Lymphocytes 19.2 (L) 24.0 - 44.0 % [facility] Monocytes 11.3 (H) 0.0 - 6.0 % [facility] Eosinophils 1.8 0.0 - 6.0 % [facility] Basophils 0.2 0.0 - 1.2 % [facility] Immature 1.1 (H) 0.0 - 1.0 % [place] granulocytes [facility] Specimen Blood Performing Organization Address City/State/Zipcode Ph one Number [facility] [place] OF [facility] [place] [address] PATHOLOGY AND GENOMIC MEDICINE [facility] [place] [address] HOSPITAL * Type and screen (09/06/2019 5:50 AM CDT) Pathologist [facility] ABO grouping O [facility] Rh type POS [facility] Antibody screen NEG [place] (gel) [facility] Specimen Blood Performing Organization Address City/[facility] Ph one Number [facility] DE[facility] OF [facility] [place] [address] PATHOLOGY AND GENOMIC MEDICINE [facility] [address] * Basic metabolic panel (09/06/2019 5:50 AM CDT) [facility] Sodium 137 135 - 150 mEq/L [facility] Potassium 3.3 (L) 3.5 - 5.0 mEq/L [facility] Chloride 98 98 - 112 mEq/L [facility] CO2 26 24 - 31 mmol/L [facility] Anion gap 13@ANIO 7 - 15 mEq/L [facility] BUN 18 7 - 18 mg/dL [facility] Creatinine 1.00 0.70 - 1.20 mg/dL [facility] Glucose 126 (H) 65 - 100 mg/dL [facility] Calcium 8.9 8.8 - 10.2 mg/dL [facility] Specimen Plasma specimen Performing Organization Address City/[facility] Cent[facility]ode Ph one Number [facility] [place] OF [facility] [place] [address] PATHOLOGY AND GENOMIC MEDICINE [facility] [place] [address] HOSPITAL * CT Angiogram Pe Chest (09/05/2019 [...] of acute embolism. 2.Other findings as above. [facility]-[id number] Procedure Note Hm Interface, Radiology Results Incoming [...] of acute embolism. 2.Other findings as above. 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 The HOSPITAL nucleotide at position [address]21 of the Factor II gene is G on both alleles. Prothrombin Wild Type Normal [place] gene mutation [facility] Prothrombin See link below for PDF Lab [place] gene mutation ReportComment: Case Number: RASTAFARI [id number] [facility] Specimen Blood Narrative Performed At Reviewed and signed by Sandra Cote, PhD ([facility]) [facility] Performing Organization Address [facility] one Number [facility] DEPARTMENT OF [address] [place] [address] PATHOLOGY AND GENOMIC MEDICINE [address] * Beta-2 glycoprotein 1 antibody, IgG and IgM (09/05/2019 8:18 PM CDT) Beta-2 <9.4 0.0 - 20.0 [place] glycoprotein 1 Comment: RASTAFARI antibody, IgG Negative =<20.0 [facility] Positive >20.0 [facility] Beta-2 <9.4 0.0 - 20.0 [place] glycoprotein 1 Comment: RASTAFARI antibody, IgM Negative =<20.0 [facility] Positive >20.0 [facility] Specimen Blood Performing Organization Address [facility] one Number [facility] DEPARTMENT OF [address] [place] [address] PATHOLOGY AND GENOMIC MEDICINE [address] * Cardiolipin antibodies (09/05/2019 8:18 PM CDT) Cardiolipin IgG 3 0 - 14 GPL [place] Comment: RASTAFARI Negative <15 GPL HOSPITAL Indeterminate 15-20 GPL Positive >20 GPL Cardiolipin IgM 7 0 - 12 MPL [place] Comment: RASTAFARI Negative <13 [facility] HOSPITAL Indeterminate 13-20 [facility] Positive >20 [facility] Specimen Blood Performing Organization Address [facility] one Number [facility] DEPARTMENT OF [address] [place] [address] PATHOLOGY AND [facility] MEDICINE [address] * Factor V leiden by PCR (09/05/2019 8:18 PM CDT) Pathologist [facility] Interpretation 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 The nucleotide at [facility] position 1691 of the Factor V gene is G on both alleles. Factor V Leiden Wild Type [facility] Factor V Leiden See link below for PDF Lab [place] ReportComment: Case Number: RASTAFARI [id number] HOSPITAL Specimen Blood Narrative Performed At Reviewed and signed by Sandra Cote, PhD ([facility]) [facility] Performing Organization Address [facility] one Number [facility] DEPARTMENT OF [address] [place] [address] PATHOLOGY AND [facility] MEDICINE [address] * Protein S antigen, total (09/05/2019 7:27 PM CDT) Pathologist [facility] Protein S Ag, 155 (H) 71 - 150 % [place] total [facility] Specimen Blood Performing Organization Address [facility] one Number [facility] DEPARTMENT OF [address] [place] [address] PATHOLOGY AND GENOMIC MEDICINE [address] * Protein S antigen, free (09/05/2019 7:27 PM CDT) [facility] Protein S Ag, 78 62 - 160 % [place] free [facility] Specimen Blood Performing Organization Address [facility] Ph one Number [facility] DEPARTMENT OF [address] [place] [address] PATHOLOGY AND [facility] MEDICINE [address] * Functional protein S (09/05/2019 7:27 PM CDT) Pathologist [facility] Functional 66 (L) 74 - 160 % [place] protein S Comment: RASTAFARI Functional Protein S HOSPITAL performed. If result is decreased Total and Free Protein S Antigen will be performed. Specimen Blood Performing Organization Address City/[facility] Ph one Number [facility] DEPARTMENT OF [address] [place] [address] PATHOLOGY AND GENOMIC MEDICINE [address] * Functional protein C (09/05/2019 7:27 PM CDT) [facility] Functional 114 70 - 165 % [place] protein C [facility] Specimen Blood Performing Organization Address City/[facility] Ph one Number [facility] DEPARTMENT OF [address] [place] [address] PATHOLOGY AND GENOMIC MEDICINE [address] * Lupus anticoagulant panel (09/05/2019 7:27 PM CDT) [facility] Prothrombin 13.2 11.5 - 14.5 sec [place] time [facility] INR 1.0 [place] Comment: RASTAFARI The International Normalized HOSPITAL Ratio (INR) is a therapeutic monitoring tool for patients who are stable on oral anticoagulant therapy. An INR of 2.0-3.0 is suggested for deep vein thrombosis/pulmonary embolism. PTT 32.0 23.0 - 36.0 sec [place] Comment: RASTAFARI PTT therapeutic range for HOSPITAL unfractionated heparin is 61.0-112.0 seconds which corresponds to Anti-Xa 0.3-0.7 U/ml. PTT lupus 32.2 27.0 - 38.0 sec [place] anticoagulant Comment: RASTAFARI Lupus anticoagulant (LA) panel HOSPITAL consists of [...] diagnosis. DRVVT 30.3 29.0 - 46.0 sec [place] Comment: RASTAFARI This test has been modified HOSPITAL from the manufacturers instructions. The performance characteristics were determined by [facility] in a manner consistent with CLIA requirements. This test has not been cleared or approved by the U.S. Food and Drug Administration. Specimen Blood Performing Organization Address City/[facility] one Number [facility] DEPARTMENT OF [address] [place] [address] PATHOLOGY AND GENOMIC MEDICINE [address] * Antithrombin III level (09/05/2019 7:27 PM CDT) Antithrombin 98 80 - 130 % [facility] Specimen Blood Performing Organization Address [facility] one Number [facility] DEPARTMENT OF [address] [place] [address] PATHOLOGY AND GENOMIC MEDICINE [address] * Factor VIII assay (09/05/2019 7:27 PM CDT) Factor VIII 240 (H) 60 - 150 % [facility] Comment: RASTAFARI This test has been modified HOSPITAL from the manufacturers instructions. The performance characteristics were determined by [facility] in a manner consistent with CLIA requirements. This test has not been cleared or approved by the U.S. Food and Drug Administration. Specimen Blood Performing Organization Address [facility] one Number [facility] DEPARTMENT OF [address] [place] [address] PATHOLOGY AND GENOMIC MEDICINE [address] * C-reactive protein (09/05/2019 7:27 PM CDT) CRP 2.36 (H) 0.00 - 0.50 mg/dL [facility] Specimen Blood Performing Organization Address [facility] one Number [facility] DE[place]MENT OF [address] [place] [id number] PATHOLOGY AND GENOMIC MEDICINE [facility] [address] * Venous blood gas (09/05/2019 7:27 PM CDT) District Manager Major Accounts Sales [employer] [facility] Collection site LEFT AC [facility] O2 therapy ROOM AIR [facility] pH, venous 7.410 7.320 - 7.420 units [facility] pCO2, venous 46.4 45.0 - 51.0 mmHg [facility] pO2, venous 35.7 25.0 - 40.0 mmHg [facility] O2 saturation, 67.5 40.0 - 70.0 % [facility] Base excess, 4.8 (H) -2.0 - 2.0 mEq/L [place] venous [facility] Bicarbonate 29.4 (H) 21.0 - 28.0 mEq/L [facility] O2 content 13.3 VOL% [facility] Carboxyhemoglob 1.0 0.0 - 1.4 % [place] in Comment: RASTAFARI Reference Ranges: DUNDAS Carboxyhemoglobin [facility] Non smoker: 0.0 - 2.0% Smoker: 2.1 - 5.0% Heavy smoker: 5.1 - 9% Methemoglobin 0.7 0.0 - 1.0 % [facility] Hemoglobin, 14.3 14.0 - 18.0 g/dL [place] blood gas [facility] Specimen Blood Performing Organization Address City/[facility] Ph one Number [facility] DE[place]MENT OF [address] [place] [address] PATHOLOGY AND GENOMIC MEDICINE [facility] [address] [place] [address] * ECG 12 lead (09/05/2019 6:43 PM CDT) Ventricular 96 [facility] rate Atrial rate 96 [facility] OH interval 180 [facility] QRSD interval 88 [facility] QT interval 370 [facility] QTC interval 467 [facility] P axis 1 40 [facility] QRS axis 1 -6 [facility] T wave axis 37 [facility] EKG impression Normal sinus rhythm-Possible [facility] MUSE Left atrial enlargement-Borderline ECG-In automated comparison with ECG of 21-MAR-2019 07:16,-[place] interval has decreased- Specimen Narrative Performed At This result has an attachment that is n ot available. Performing Organization Address City/[facility]/Zipcode Ph one Number [facility] MUSE [address] [place] [address] * XR Chest 2 Vw (09/05/2019 6:40 PM CDT) Specimen Narrative Performed At EXAMINATION: XR CHEST 2 VW [facility] CLINICAL HISTORY: swelling to arm h tn COMPARISON: To previous study from IMPRESSION: Endovascular stents are present in the in the brachiocephalic vessels. The heart is normal in appearance, and the lungs are clear. [facility]-[id number] Procedure Note Hm Interface, Radiology Results Incoming - 09/05/2019 6:51 PM CDT EXAMINATION: XR CHEST 2 VW CLINICAL HISTORY: swelling to arm htn COMPARISON: To previous study from 09/30/2016 IMPRESSION: Endovascular stents are present in the in the brachiocephalic vessels. The heart is normal in appearance, and the lungs are clear. [facility]-[id number] Performing Organization Address [facility] one Number [facility] [address] [place] [address] * ECG ED Preliminary Interpretation - Not an Order (09/05/2019 6:27 PM CDT) Narrative Performed At Alonzo Samaniego MD 9 9:23 AM ECG ED Preliminary Interpretation - Not an Order Performed by: Chela Parra NP Authorized by: Alonzo Samaniego MD ECG reviewed by ED Physician in the abs ence of a time lock expert: yes Previous ECG: Previous ECG: Compared to current Interpretation: Interpretation: normal Rhythm: Rhythm: sinus rhythm QRS: QRS axis: Normal Comments: The ECG interpretation was done cont emporaneously by me. This is an adequate reading. There's no acute isch emia, the rhythm is normal sinus, OH does not demonstrate AV block, QRS d oes not demonstrate a bundle branch block, ST and T waves do not show any S T elevation to suggest an acute MD. * Anti Xa, unfractionated (09/05/2019 5:25 PM CDT) Anti Xa, <0.10 (L)Comment: Therapeutic 0.30 - 0.70 U/mL [place] unfractionated Range: 0.30 - 0.70 U/mL [facility]ST[facility]I [facility] Specimen Blood Performing Organization Address [facility]/Zipcode Ph one Number [facility] [place] [address] [place] [address] PATHOLOGY AND GENOMIC MEDICINE [facility] [address] * D-dimer (09/05/2019 5:25 PM CDT) Pathologist [facility] D-dimer 14.66 (H) 0.00 - 0.40 ug/mL [place] Comment: FEU RASTAFARI Units are ug/ml Fibrinogen [facility] Unit. [facility] When combined with low clinical probability, [...] and malignancies. Specimen Blood Performing Organization Address City/[facility] Ph one Number [facility] [place] [address] [place] [address] PATHOLOGY AND GENOMIC MEDICINE [facility] [address] [place] [address] * B natriuretic peptide (09/05/2019 5:25 PM CDT) Pathologist [facility] BNP 16 0 - 100 pg/mL [facility] Specimen Blood Performing Organization Address City/State/Zipcode Ph one Number [facility] [place] [address] [place] [address] PATHOLOGY AND GENOMIC MEDICINE [facility] [address] [place] [address] HOSPITAL after 04/22/2019 Insurance Type Payer Benefit Subscriber ID Effective Phone Address Plan / Dates Group HMO/PPO [facility] xxxxxxxxx [id number] THC[employer] resent CHOICE/CHO ICE + Advance Directives For more information, please contact: [phone] Patient [employer] Explanation Type Date Recorded Advance Directives, 06/01/2016 8:13 PM Living Will and Medical Power of Director [employer] Advance Directives, 09/25/2016 1:48 PM Living Will and Medical Power of Director [employer] Advance Directives, 09/30/2016 6:16 PM Living Will and Medical Power of Director [employer] Advance Directives, 10/07/2016 9:35 AM Living Will and Medical Power of Director [employer] Advance Directives, 09/05/2019 7:06 PM Living Will and Medical Power of Director [employer]
[2020-04-22] MEDS ORDERED: METHYLPREDNISOLONE SOD SUCC 125 MG/2ML VIAL IV ONE (19:00)
[2020-04-22] MEDS ORDERED: ALBUTEROL/IPRATROPIUM 3 ML NEB NEB SCH (19:00)
[2020-04-22] MEDS ORDERED: ALBUTEROL/IPRATROPIUM 3 ML NEB NEB ONE (19:00)
[2020-04-22] MEDS ORDERED: FUROSEMIDE INJ 10 MG/ML 4 ML VIAL IV ONE (19:00)
[2020-04-22] MEDS: VALSARTAN 80 MG TAB PO SCH (20:59)
[2020-04-22] MEDS: METOPROLOL TARTRATE 25 MG TAB PO SCH (20:59)
[2020-04-22] MEDS ORDERED: ZOLPIDEM TARTRATE 5 MG TAB PO PRN (21:00)
--- NOTE | 2020-04-22 21:26 | Consultation ---
DATE OF CONSULTATION: Pulmonary Critical Care Consultation CHIEF COMPLAINT: Dyspnea and wheezing. HISTORY OF PRESENT ILLNESS: The patient is a 74-year-old man. He had thyroid surgery for an enlarged thyroid one year ago. He had some vocal cord paralysis after the surgery and has been hoarse ever since. He complains of increased dyspnea and wheezing for the past 1 to 2 days. He denies any fever. He denies cough or chest pain. He does not report any prior respiratory problems. He has some chronic leg edema. He denies any liver disease or heart problems. He has been using compression devices. PAST SURGICAL HISTORY: Status post thyroid surgery as noted above. PAST MEDICAL HISTORY: 1. Hypertension. 2. Chronic lymphedema. 3. Vocal cord paralysis. ALLERGIES: NO KNOWN DRUG ALLERGIES. SOCIAL HISTORY: The patient has never been a smoker. He is not a drinker. FAMILY HISTORY: Family history is significant for heart disease. REVIEW OF SYSTEMS: He denies any fever or headache. He is not having any neck pain. He denies any sore throat. He has no swollen glands. He is not having chest pain. He does note noisy breathing as well as shortness of breath. He has no abdominal pain. He has no nausea or vomiting. He has no leg edema. PHYSICAL EXAMINATION: VITAL SIGNS: The blood pressure is 189/103 and the pulse is 87. The respiratory rate is 20. He is afebrile. HEENT: Shows no facial swelling or erythema. Oropharynx is normal. LYMPHATIC: Shows no submandibular, cervical, or supraclavicular adenopathy. There is some scarring on the right side of the neck from the prior surgery. HEART: Regular rate and rhythm with normal S1 and S2. LUNGS: Auscultation of lungs reveals prolonged expiratory phase with wheezing and possible stridor bilaterally. ABDOMEN: Soft and nontender. There is no rebound or guarding. EXTREMITIES: Shows chronic leg edema with skin changes consistent with venous stasis. LABORATORY DATA: White blood cell count is 5.9 and hemoglobin is 11.7. The platelet count is 261. BUN to creatinine ratio is 11 to 0.89. The potassium is 3.2 and the carbon dioxide is 31. RADIOGRAPHIC DATA: CT scan of the chest shows no acute intrathoracic process. There is a partially visualized staghorn calculus in the right renal pelvis with some mild to moderate right hydronephrosis. CT scan of the neck shows changes from a right hemithyroidectomy. There is a residual left thyroid nodule. There are degenerative changes of the cervical spine. IMPRESSION: 1. Stridor and wheezing. 2. Prior thyroid surgery. 3. Vocal cord paralysis. 4. Chronic lymphedema. 5. Hypokalemia. 6. Hypertension. PLAN: 1. The patient will receive Solu-Medrol. 2. Bronchodilators. 3. ENT evaluation. 4. Restart blood pressure medications. 5. Continue wrapping lower extremities for lymphedema. Ashok Kapoor MD [facility]/MODL /[id number]
--- NOTE | 2020-04-22 21:41 | NUR ---
niece: Sara Flower
[2020-04-22] MEDS ORDERED: POTASSIUM CHLORIDE 20 MEQ TAB CR PO STA (23:12)
[2020-04-22] MEDS ORDERED: ACETAMINOPHEN 325 MG TAB PO PRN (23:15)
[2020-04-22] MEDS ORDERED: HYDRALAZINE HCL 20 MG/ML VIAL IV PRN (23:15)
[2020-04-22] MEDS ORDERED: ONDANSETRON HCL INJ 2MG/ML 2ML 2 MG/ML VIAL IV PRN (23:15)
[2020-04-22] MEDS ORDERED: DOCUSATE SODIUM 100 MG CAP PO PRN (23:15)
[2020-04-22] MEDS ORDERED: DEXTROSE 50% SYRINGE 50 ML IV PRN (23:15)
[2020-04-23] VITALS (9 sets, daily range): BP systolic 135–160; BP diastolic 82–103
--- NOTE | 2020-04-23 00:15 | NUR ---
Report received from ER nurse.
--- NOTE | 2020-04-23 00:30 | NUR ---
Patient arrived to the floor via w/c.
[2020-04-23] MEDS ORDERED: SODIUM CHLORIDE 0.9% 50ML 50 ML ONE (02:34)
[2020-04-23] MEDS ORDERED: IOPAMIDOL 370 MG/ML 200 ML INFUS..BTL INJ ONE (02:35)
[2020-04-23] MEDS ORDERED: METOPROLOL SUCC25 MG PO (03:14)
[2020-04-23] MEDS ORDERED: METFORMIN HCL500 MG PO (03:15)
--- NOTE | 2020-04-23 03:17 | History and Physical ---
CHIEF COMPLAINT: Shortness of breath, wheezing. HISTORY OF PRESENT ILLNESS: The patient is a very poor historian despite me talking to him for significant period of time. He does not know much about his medical history. A 74-year-old male, morbidly obese, very poor historian, reports having multiple medical issues, but was unable to describe to me. Has a history of hypertension, also apparently some thyroid nodule, had surgery in the past, cannot tell me, it was malignant. Presents to the ED with complaints of shortness of breath and wheezing ongoing for the last several days. The patient reports that he has had shortness of breath and wheezing at rest, not with ambulation. Of note, he does not ambulate a whole lot either. He denies any chest pain, palpitation, nausea, or vomiting. Denies any fever at home. No diarrhea. Denies any history of COPD or any chronic smoking. The patient was evaluated in the ER and Pulmonary as well as several other consultants were consulted. The patient also has some hoarse voice and he reports to me that about a bmmc-ytz-[id number]-half ago, he had a thyroid resection, but told me that it was not malignant. He said, since then, he has had a hoarse voice. He reports seeing 4 ENT physicians and he reports they were not helpful at all. Since then, he states he has been doing well, but he has been losing his voice for significant period of time. REVIEW OF SYSTEMS: Pertinent positives: Shortness of breath, wheezing, hoarseness of the voice. The rest of 14-point review of systems are reviewed with the patient and are negative. ALLERGIES: NO KNOWN DRUG ALLERGIES. HOME MEDICATIONS: None recorded at this time. PAST MEDICAL HISTORY: He has had a thyroid nodule, status post resection about a pcfe-yna-p-half ago. He has a history of hypertension. He is morbidly obese and that is all he is able to tell me. PAST SURGICAL HISTORY: Thyroid nodule resection. FAMILY HISTORY: Hypertension and diabetes. SOCIAL HISTORY: He denies smoking, drugs, or any alcohol. He is retired. PHYSICAL EXAMINATION: VITAL SIGNS: Temperature is 98.9, pulse 103, respiratory rate is 19, blood pressure is 150/83, pulse ox 99% on room air. GENERAL: In acute distress alert oriented x3. Cooperative on examination. PULMONARY: He has positive expiratory wheezing appreciated. No crackles appreciated. CARDIOVASCULAR: Positive S1, S2. No murmurs, rubs, or gallops. ABDOMEN: Soft, nondistended, nontender to palpation. Bowel sounds present. MUSCULOSKELETAL: Strength is 5/5 throughout. No evidence of any muscle deficits on examination. No weakness appreciated. SKIN: Intact. Warm to touch. Good cap refill. PSYCHIATRIC: Normal affect and mood. EXTREMITIES: No edema. Good range of motion throughout. LABORATORY DATA: Show white count 5.9, hemoglobin 11, hematocrit 36, platelets of 261. Chemistry; sodium 142, potassium 3.2, chloride 103, bicarb 31, anion gap of 11, BUN is 11, creatinine is 0.89, glucose is 232, total bilirubin was 0.7, AST 10, ALT 10, alkaline phosphatase 71. LFTs within normal range. Troponins are negative. BNP 21. Albumin 3.3. Serology coronavirus PCR is pending. IMAGING STUDIES: Chest CT shows no acute intrathoracic process identified. There is a partially visualized staghorn-type of calculus within the right renal pelvis with associated [id number] right hydronephrosis. CT of the soft tissue neck shows a right hemithyroidectomy. There is an enlarged residual left thyroid lobe with a 1.5 cm dominant hypodense nodule. There is severe degenerative changes in the cervical neck as well. IMPRESSION: 1. Acute respiratory distress with underlying wheezing, currently stable. 2. Type 2 diabetes. 3. History of thyroid resection, currently with residual thyroid nodules. 4. Concerns for vocal cord paralysis. 5. Right hydronephrosis with a staghorn calculi noted on imaging studies. 6. Morbidly obese. 7. Bilateral lower extremity wound infection. PLAN: At this time, in relation to his shortness of breath, he will be on steroids and neb treatments and Pulmonary has been consulted. Imaging studies have been reviewed. We will put him on insulin sliding scale, get an A1c in the morning as well. Endocrinology has been consulted for the underlying thyroid nodules. I believe his vocal cord paralysis could be from underlying thyroid surgery about a igpp-dkz-s-half ago. We will go ahead and get ENT to come and evaluate him as well. In relation to his right-sided hydronephrosis, I did consult with Dr. Lewis, Urology, to come and evaluate him. He will be on IV Zosyn as well. He does have significant lower extremity wounds as well. I will go ahead and get a wound care physician, IV antibiotics, local wound care provided. He will be on a heart healthy diet. Lovenox for DVT prophylaxis. We will also get PT, OT evaluation. MD EMERALD Vargas/MODNely /[id number]
[2020-04-23] MEDS ORDERED: SODIUM CHLORIDE 0.9% 250ML 250 ML ONE (05:45)
[2020-04-23] MEDS: PIPER-TAZ 3.375 GM 50 ML IV SCH ×3 (05:54→21:20)
--- NOTE | 2020-04-23 08:07 | Progress Note ---
DATE: Pulmonary Critical Care Progress Note SUBJECTIVE: The patient received Solu-Medrol and bronchodilators yesterday. He has less wheezing and less stridor. He still has a hoarse voice. PHYSICAL EXAMINATION: VITAL SIGNS: The patient is afebrile. The blood pressure is 144/90, saturation is 98% and the pulse is 93. Respiratory rate is 18. HEENT: Shows no facial swelling or erythema. CARDIAC: Reveals regular rate and rhythm with normal S1, S2. There are no murmurs or rubs heard. LUNGS: Auscultation of lungs reveals wheezing in both lung greer. It is substantially decreased from yesterday. He still has a raspy hoarse voice. ABDOMEN: Soft nontender. There is no rebound or guarding. EXTREMITIES: Shows chronic venous stasis. SKIN: There are some skin changes consistent with chronic lymphedema. IMPRESSION: 1. Stridor and wheezing that has responded to bronchodilators, steroids. 2. Vocal cord paralysis, unilateral. 3. Prior thyroid surgery. 4. Chronic lymphedema. 5. Hypertension. 6. Hypokalemia. PLAN: 1. Continue bronchodilators. 2. ENT evaluation today. 3. Continue to monitor, control blood sugars. 4. Wound care to see the patient regarding lymphedema. 5. Urology to see the patient regarding staghorn calculus. Ashok Kapoor MD [facility]/JAZLYN /[id number]
[2020-04-23 08:21] LABS: BASOPHILS % 0.2 % (0.0-1.0); HEMATOCRIT 37.4 % (38.2-49.6); LYMPHOCYTES # (AUTO) 0.8 (1.0-3.2); MEAN CORPUSCULAR HEMOGLOBIN 28.4 pg (28-32); MEAN CORPUSCULAR HGB CONC 32.1 g/dL (31-35); MEAN CORPUSCULAR VOLUME 88.4 fL (81-99); MONOCYTES # (AUTO) 0.1 (0.2-0.8); MONOCYTES % 2.1 % (4.4-11.3); NEUTROPHILS # (AUTO) 5.7 (2.1-6.9); NEUTROPHILS % 85.4 % (38.7-80.0); PLATELET COUNT 286 x10e3/uL (140-360); RED BLOOD COUNT 4.23 x10e6/uL (4.3-5.7); RED CELL DISTRIBUTION WIDTH 13.4 % (11.7-14.4)
[2020-04-23 08:46] LABS: ANION GAP 10.8 mmol/L (8-16); BLOOD UREA NITROGEN 14 mg/dL (7-26); BUN/CREATININE RATIO 15 (6-25); CALCIUM 9.5 mg/dL (8.4-10.2); CARBON DIOXIDE 27 mmol/L (22-29); CHLORIDE 103 mmol/L (98-107); CREATININE, SERUM 0.95 mg/dL (0.72-1.25); EST GLOMERULAR FILTRATION RATE > 60 ML/MIN (60-); GLUCOSE 316 mg/dL (74-118); POTASSIUM 3.8 mmol/L (3.5-5.1); SODIUM 137 mmol/L (136-145)
[2020-04-23] MEDS ORDERED: METHYLPREDNISOLONE SOD SUCC 40 MG/ML VIAL 1ML IV SCH (09:00)
[2020-04-23] MEDS: FUROSEMIDE INJ 10 MG/ML 4 ML VIAL IV SCH ×2 (09:15→21:20)
[2020-04-23] MEDS: METHYLPREDNISOLONE SOD SUCC 40 MG/ML VIAL 1ML IV SCH ×2 (09:15→21:20)
[2020-04-23] MEDS: METOPROLOL TARTRATE 25 MG TAB PO SCH ×2 (09:15→21:20)
--- NOTE | 2020-04-23 09:15 | NUR ---
Pt unavailable at this time. Pt's nurse performing procedure bedside. I will follow up as able. JOSEPH BROWN [employer] Farmworker [facility] Care Department O: [phone]
[2020-04-23 10:30] LABS: CLARITY,URINE CLEAR (CLEAR); COLOR,URINE YELLOW (YELLOW)
[2020-04-23 10:31] LABS: BILIRUBIN,URINE NEGATIVE (NEGATIVE); KETONES,URINE NEGATIVE (NEGATIVE); LEUKOCYTE ESTERASE ,URINE SMALL (NEGATIVE); NITRITE,URINE NEGATIVE (NEGATIVE); PROTEIN,URINE DIPSTICK 1+ (NEGATIVE); URINE UROBILINOGEN 0.2 mg/dL (0.2 - 1)
[2020-04-23 11:01] LABS: EPITHELIAL CELLS,URINE RARE /LPF
[2020-04-23 11:02] LABS: BACTERIA,URINE FEW /HPF; RBC,URINE 0-5 /HPF (0-5); WBC,URINE (MAN) 21-50 /HPF (0-5)
--- NOTE | 2020-04-23 12:36 | Diagnostic Imaging Report ---
EXAM: CT Abdomen and Pelvis WITHOUT intravenous contrast INDICATION: Renal calculus COMPARISON: None. TECHNIQUE: Abdomen and pelvis were scanned utilizing a multidetector helical scanner from the lung base to the pubic symphysis without administration of IV contrast. Coronal and sagittal reformations were obtained. IV CONTRAST: None ORAL CONTRAST: None COMPLICATIONS: None RADIATION DOSE: Total DLP: 744 mGy*cm Dose modulation, iterative reconstruction, and/or weight based adjustment of the mA/kV was utilized to reduce the radiation dose to as low as reasonably achievable. FINDINGS: LOWER THORAX: Normal. HEPATOBILIARY: No focal liver lesion. Cholelithiasis without CT evidence of cholecystitis. SPLEEN: No splenomegaly. PANCREAS: No focal masses or ductal dilatation. ADRENALS: No adrenal nodules. KIDNEYS/URETERS: 2.0 cm staghorn right lower pole renal calculus and 2.9 cm calculus in the right renal pelvis. Moderate right hydronephrosis. No left renal calculi or hydronephrosis. PELVIC ORGANS/BLADDER: The prostate is enlarged and measures up to 6.1 x 3.9 x 5.2 cm (volume estimate 65 cc) with coarse internal calcifications and indentation of the posterior bladder. PERITONEUM / RETROPERITONEUM: No free air or fluid. LYMPH NODES: No lymphadenopathy. VESSELS: Scattered atherosclerotic calcifications of the nonaneurysmal abdominal aorta and major branches. GI TRACT: Diverticulosis without CT evidence of diverticulitis. No abnormal bowel thickening. No bowel obstruction. Normal appendix. BONES AND SOFT TISSUES: No acute osseous injury. No suspicious lytic or blastic lesions. Prominent degenerative changes of the visualized spine. IMPRESSION: Right lower pole staghorn calculus and right renal pelvis calculus. Moderate right hydronephrosis. No left renal calculi or hydronephrosis. Prostatomegaly. Diverticulosis without CT evidence of diverticulitis. Signed by: Mihir Morrison MD on 04/23/2020 12:33 PM
[2020-04-23] MEDS: ALBUTEROL/IPRATROPIUM 3 ML NEB NEB SCH ×2 (13:16→19:40)
--- NOTE | 2020-04-23 15:04 | Consultation ---
DATE OF CONSULTATION: 04/23/2020 Urology Consultation. REASON FOR CONSULTATION: Right nephrolithiasis. HISTORY OF PRESENT ILLNESS: Ashu Pandey is a 74-year-old man, who was admitted with shortness of breath and wheezing. CT scanning revealed a stone in the right side and urological consultation was sought. The patient reports occasional dysuria. He denies previously documented urinary tract infections, denies any hematuria. He reports nocturia x5. He denies any current fever and chills. Denies any urinary incontinence. PAST MEDICAL/SURGICAL HISTORY: 1. Status post thyroidectomy. 2. Diabetes mellitus. 3. Hypertension. 4. Obesity. 5. Bilateral lower extremity wounds. ALLERGIES: NONE KNOWN. CURRENT MEDICATIONS: Please refer to the MAR. 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 Denies smoking, ethanol, and drug use. FAMILY HISTORY: Noncontributory to the active urological problems. REVIEW OF SYSTEMS: Discussed as above history of present illness, past medical history, otherwise negative for all systems. PHYSICAL EXAMINATION: GENERAL: Very pleasant 74-year-old man sitting up in the room with some degree of shortness of breath and wheezing. VITAL SIGNS: He is currently afebrile. His vital signs are currently stable. ABDOMEN: Soft, obese, nondistended and nontender without costovertebral angle tenderness. Kidneys not palpable without hepatosplenomegaly. No obvious evidence of hernia. GENITOURINARY: Testes descended bilaterally. Testes and epididymides bilaterally palpably normal. The patient has a normal uncircumcised male phallus with normal meatus without any lesion. Digital rectal examination is deferred at the present time. For the remaining physical examination systems, please refer to the admission history and physical on the chart. LABORATORY STUDIES: White blood cell count 6610, hemoglobin 12.1, platelets 286,000. The patient's chemistries from today are pending. His creatinine yesterday was 0.89. His potassium yesterday was 3.2. No urinalysis was done. CT scanning of the abdomen and pelvis revealed right hydronephrosis and a Staghorn calculus in the right side there, which was only partially evaluated. ASSESSMENT: 1. Right nephrolithiasis. 2. Dysuria. 3. Nocturia. 4. Obesity. 5. Anemia. 6. Hypokalemia. 7. Hydronephrosis. PLAN: 1. Defer the hematological and electrolyte abnormalities to the primary team. 2. I will order a stone protocol CT. 3. I will order urinalysis with microscopy. 4. Once the patient's respiratory status has been stabilized, we will plan on beginning intervention for his stones. Thank you for involving us in care of your patient. We will be happy to follow him along with you as well as an outpatient. Rashawn Lewis MD [place]/MOD[facility] /[id number]
[2020-04-23 16:01] LABS: FREE T4 (FREE THYROXINE) 1.27 ng/dL (0.8-1.8); THYROID STIMULATING HORMONE 0.096 uIU/mL (0.350-4.940)
--- NOTE | 2020-04-23 16:27 | Diagnostic Imaging Report ---
Thyroid ultrasound CPT code: 35102 History: Goiter Comparison: Neck CT of 04/22/2020 Findings: The thyroid echotexture is normal. Vascularity is normal. Status post right hemithyroidectomy. The left lobe measures 5.5 x 2.2 x 3.1 cm. The isthmus measures 0.5 cm. Nodules (measurements are AP, transverse, craniocaudal): Right Lobe: Status post right hemithyroidectomy. Left Lobe: Lower pole 2.1 x 1.4 x 2.1 cm cyst part solid part cystic, hypoechoic, wider than tall nodule without internal calcifications. Isthmus: No cystic mass or discrete solid nodule identified. Lymph Nodes: No cervical lymph nodes are identified. Parathyroids: Not visualized. IMPRESSION: Left lower pole thyroid nodule measures up to 2.1cm (TI-RADS3). Recommend imaging followup as per ACR guidelines below. ACR glossary of thyroid rads TI-RADS 1: No focal lesion. TI-RADS 2: Not suspicious. TI-RADS 3: Mildly suspicious (recommend FNA is greater than or equal to 2.5 cm; follow-up at 1, 3, and 5 years if greater than or equal to 1.5 cm) TI-RADS 4: Moderately Suspicious (recommend FNA is greater than or equal to 1.5 cm; follow-up at 1, 2, 3, and 5 years) TI-RADS 5: Highly suspicious (recommend FNA is greater than or equal to 10 mm) TI-RADS 6: Biopsy-proven malignancy Signed by: Mihir Morrison MD on 04/23/2020 4:23 PM
--- NOTE | 2020-04-23 16:49 | Consultation ---
DATE OF CONSULTATION: Thank you, Dr. Swan, for asking me to see this patient. HISTORY OF PRESENT ILLNESS: A 74-year-old black male patient, morbidly obese with bilateral leg edema with fluid weeping through the skin for past one year, wheezing, shortness of breath. Wound consult was called. PAST MEDICAL HISTORY: Hypertension, thyroid nodule, morbid obesity, and chronic lymphedema. PAST SURGICAL HISTORY: Thyroid nodule resection. PERSONAL HISTORY: Denies smoking or alcohol. PHYSICAL EXAMINATION: VITAL SIGNS: Temperature 98, pulse 103, respiratory rate 19, blood pressure 150/83. HEENT: Normal. NECK: No JVD. LUNGS: Bilateral wheezing present. ABDOMEN: Soft, protuberant, obese. EXTREMITIES: Lower extremities, bilateral leg edema, right more than the left with multiple areas fluid weeping through the skin. The patient has applied multiple Band-Aid to both lower extremities. ASSESSMENT: Bilateral leg edema secondary to morbid obesity and sleep apnea with cellulitis and lymphedema changes. PLAN: Applied Aquacel, Kerlix, Coban to both lower extremities for compression. We will monitor closely. Thank you for consultation. MD ERIKA Oakes/EDENL /[id number]
[2020-04-23] MEDS: ENOXAPARIN SOD INJ 40 MG/0.4 ML SYR SC SCH (17:01)
--- NOTE | 2020-04-23 17:30 | Consultation ---
DATE OF CONSULTATION: Hospital Consultation HISTORY OF PRESENT ILLNESS: I was kindly asked to see this 74-year-old man for evaluation of possible vocal cord paralysis. The patient underwent right-sided thyroid surgery approximately 18 months ago and reports his voice has been hoarse ever since his surgery. He reports over the last year he has had difficulty breathing and he reports he has seen multiple other kettle hand for evaluation and treatment. He was referred to a tribal delegate (he does not recall the name). However, he did not follow through with a Laryngology appointment, now presents with progressive difficulty breathing. His history of present illness, past medical history and past surgical history were reviewed in detail in the chart. On examination, the patient has a thyroidectomy scar, he is noted to have a strained harsh voice and has inspiratory stridor at rest. He is in no distress. The CT scan of the neck obtained shows findings consistent with a previous right hemithyroidectomy and a 1.5 cm lesion. Multiple lesions in the left thyroid lobe with a dominant 1.5 cm lesion. ASSESSMENT: Respiratory stridor of unclear etiology. PLAN: Bedside fiberoptic laryngoscopy. Thank you very much for this consultation. MD MAGNOLIA Disla/JAZLYN /[id number]
--- NOTE | 2020-04-23 18:08 | NUR ---
patient up in bed, denies any pain, no distress noted
--- NOTE | 2020-04-23 20:56 | Consultation ---
DATE OF CONSULTATION: 04/23/2020 Endocrine Consultation HISTORY OF PRESENT ILLNESS: Thank you very much for referring this patient. This is a 74-year-old black gentleman, who was referred to me for evaluation of hypothyroidism. The patient is status post thyroidectomy done on the right side about a year back. Since then, the patient has been hoarse. He came to the hospital this time with a history of shortness of breath. He also has history of obesity and sleep apnea. The patient has history of hypertension. He is a nonsmoker. He has history of diabetes mellitus type 2 with complications. The patient also has a renal calculus with right hydronephrosis. PHYSICAL EXAMINATION: GENERAL: Today, the patient is morbidly obese. He is sleeping and it was very difficult to arouse him. VITAL SIGNS: His heart rate is around 68, blood pressure 140/80 mmHg. HEENT: Essentially unremarkable. Examination of the neck shows that there is a scar in the neck. I cannot feel any thyroid masses. CHEST: Bilateral vesicular breathing. He has bilateral bronchospasm and basilar rales. CARDIOVASCULAR: First and second heart sound. There is no third or fourth heart sounds. Ejection systolic murmur grade 2/6. CLINICAL IMPRESSION: 1. Right thyroidectomy, left thyroid enlarged. 2. Hoarseness of voice, probably related to vocal cord paralysis following the surgery. 3. Sleep apnea. 4. Obstructive pulmonary disease. 5. Hypertension. 6. Diabetes mellitus. 7. Morbid obesity. PLAN: At this time is to do a free T4, TSH, and also do an ultrasound of the thyroid. The patient is also being evaluated by the ENT for vocal cord paralysis. Thank you for referring this patient. I will follow this patient with you: MD MONAE Lock/JAZLYN /[id number]
[2020-04-23] MEDS: VALSARTAN 80 MG TAB PO SCH (21:20)
[2020-04-24] VITALS (8 sets, daily range): BP systolic 115–169; BP diastolic 83–88
--- NOTE | 2020-04-24 02:18 | Progress Note ---
DATE: 04/23/2020 Medicine Progress Note SUBJECTIVE: The patient was seen approximately at 10:15 a.m. this morning. The patient is a very poor historian. When asked some several more questions about his past medical history, still cannot provide me with much information. I have several consultants come and evaluate the patient today. LABORATORY DATA: Labs show white count 6.6, hemoglobin 12, hematocrit 37, platelets of 286. Chemistry, sodium 137, potassium 3.8, chloride 103, bicarb 27, anion gap of 10. BUN is 14, creatinine is 0.95. His hemoglobin A1c was 10.9, calcium was 9.5. Troponins were all negative. His TSH is 0.096. BNP is 21. Urinalysis noted. Thyroid peroxidase antibody pending. Serology coronavirus PCR pending. MICROBIOLOGY: Urine cultures are pending. IMAGING STUDIES: CT abdomen and pelvis shows right lower lobe staghorn calculus with right renal pelvis calculus. Moderate right hydronephrosis. No left renal calculi or hydronephrosis. Prostatomegaly. Thyroid ultrasound was performed shows a left lower pole thyroid nodule measures 2.1 cm in size. PHYSICAL EXAMINATION: VITAL SIGNS: Temperature is 97.6, pulse 91, respiratory rate is 18, blood pressure 142/82, pulse ox 96% on room air. GENERAL: No acute distress. Alert and oriented x3. He is cooperative on exam. HEENT: Head; normocephalic, atraumatic. Eyes; pupils are equal, round, and reactive to light bilaterally. Extraocular movements intact bilaterally. Throat; no evidence of erythema or exudates in the posterior pharynx. Has poor dentition. NECK: Supple. Good range of motion. PULMONARY: Clear to auscultation bilaterally. No wheezing, no rales, no rhonchi, no crackles appreciated. CARDIOVASCULAR: Positive S1 and S2. No murmurs, rubs, or gallops appreciated. GASTROINTESTINAL: Abdomen is soft, nondistended, and nontender to palpation. Bowel sounds present. MUSCULOSKELETAL: Strength is 5/5 throughout. No evidence of any muscle deficits on examination. No weakness appreciated. NEUROLOGIC: Cranial nerve 2 through 12 grossly intact. No evidence of any neurological deficits on exam. SKIN: Intact. Warm to touch. Good cap refill. PSYCHIATRIC: Normal affect and mood. EXTREMITIES: No edema. Good range of motion throughout. IMPRESSION: 1. Acute respiratory distress with underlying stridor. 2. Type 2 diabetes. 3. History of thyroid resection with residual thyroid nodules. 4. Concerns for focal cord paralysis. 5. Right-sided hydronephrosis with staghorn calculi. 6. Morbidly obese. 7. Bilateral lower extremity wound infection. PLAN: At this time, ENT evaluated the patient. We will do a bedside laryngeal scope to evaluate for any kind of vocal cord paralysis. Also, got Endocrinology involved. The thyroid ultrasound has been ordered and there are still some residual thyroid nodules in which a thyroid peroxidase antibody has been ordered. As for his right-sided hydronephrosis and staghorn calculi, Urology was consulted. CT pelvis was ordered, still shows evidence of a staghorn calculus. Further intervention per Urology. In terms of his lower extremity swelling and his wound infection, he has local wound care and wound care physician has been following as well. We will continue with IV antibiotics for now. Get a.m. labs. Follow recommendations by all consultants. He is on Lovenox for DVT prophylaxis. PT/OT evaluation. MD EMERALD Vargas/JAZLYN /[id number]
[2020-04-24] MEDS: ALBUTEROL/IPRATROPIUM 3 ML NEB NEB SCH ×4 (02:20→19:55)
[2020-04-24 05:54] LABS: BASOPHILS % 0.2 % (0.0-1.0); HEMATOCRIT 34.7 % (38.2-49.6); HEMOGLOBIN 11.2 g/dL (14.0-18.0); LYMPHOCYTES % 9.8 % (18.0-39.1); MEAN CORPUSCULAR HEMOGLOBIN 28.2 pg (28-32); MEAN CORPUSCULAR HGB CONC 32.3 g/dL (31-35); MEAN CORPUSCULAR VOLUME 87.4 fL (81-99); MONOCYTES # (AUTO) 0.5 (0.2-0.8); MONOCYTES % 4.7 % (4.4-11.3); NEUTROPHILS # (AUTO) 8.4 (2.1-6.9); NEUTROPHILS % 84.9 % (38.7-80.0); PLATELET COUNT 263 x10e3/uL (140-360); RED BLOOD COUNT 3.97 x10e6/uL (4.3-5.7); RED CELL DISTRIBUTION WIDTH 13.4 % (11.7-14.4)
[2020-04-24] MEDS: PIPER-TAZ 3.375 GM 50 ML IV SCH ×3 (05:57→21:05)
[2020-04-24 06:11] LABS: ALANINE AMINOTRANSFERASE 9 IU/L (0-55); ALBUMIN 3.2 g/dL (3.5-5.0); ALBUMIN/GLOBULIN RATIO 0.9 (0.8-2.0); ALKALINE PHOSPHATASE 64 IU/L (40-150); ANION GAP 12.5 mmol/L (8-16); BLOOD UREA NITROGEN 20 mg/dL (7-26); BUN/CREATININE RATIO 16 (6-25); CALCIUM 8.8 mg/dL (8.4-10.2); CARBON DIOXIDE 30 mmol/L (22-29); CHLORIDE 100 mmol/L (98-107); CREATININE, SERUM 1.22 mg/dL (0.72-1.25); EST GLOMERULAR FILTRATION RATE > 60 ML/MIN (60-); GLUCOSE 386 mg/dL (74-118); POTASSIUM 3.5 mmol/L (3.5-5.1); SODIUM 139 mmol/L (136-145)
[2020-04-24] MEDS: FUROSEMIDE INJ 10 MG/ML 4 ML VIAL IV SCH ×3 (06:19→21:05)
--- NOTE | 2020-04-24 07:00 | NUR ---
BEDSIDE SHIFT REPORT ROUNDS FROM [facility]. PT DENIES NEEDS AT THIS TIME.
[2020-04-24] MEDS: METOPROLOL TARTRATE 25 MG TAB PO SCH ×2 (09:02→20:48)
[2020-04-24] MEDS: METHYLPREDNISOLONE SOD SUCC 40 MG/ML VIAL 1ML IV SCH ×2 (09:02→21:05)
[2020-04-24] MEDS ORDERED: DEXTROSE 50% SYRINGE 50 ML IV PRN (15:15)
[2020-04-24] MEDS ORDERED: ONDANSETRON HCL 4 MG ORAL DISINTEGRATING TAB PO PRN (15:30)
[2020-04-24] MEDS: ENOXAPARIN SOD INJ 40 MG/0.4 ML SYR SC SCH (18:00)
[2020-04-24] MEDS: INSULIN REGULAR, HUMAN 100 UNIT/1 ML 3ML VIAL SQ SCH ×2 (18:01→21:00)
[2020-04-24] MEDS: VALSARTAN 80 MG TAB PO SCH (20:48)
[2020-04-24] MEDS: INSULIN GLARGINE 100 UNITS/ML VIAL SQ SCH (21:05)
--- NOTE | 2020-04-24 21:55 | NUR ---
SPOKE TO DR LEE REGARDING NEW CONSULT, NO NEW ORDERS RECEIVED.
--- NOTE | 2020-04-24 21:55 | NUR ---
SPOKE TO DR. LOPEZ REGARDING NEW ONSET AFIB. DOSE OF SCHEDULED METOPROLOL GIVEN, NEW CONSULT DR LEE.
[2020-04-24] MEDS: MELATONIN 5 MG TABLET PO PRN (23:00)
[2020-04-25] VITALS (8 sets, daily range): BP systolic 108–133; BP diastolic 79–90
[2020-04-25] MEDS: ALBUTEROL/IPRATROPIUM 3 ML NEB NEB SCH ×4 (01:45→19:53)
--- NOTE | 2020-04-25 01:56 | Progress Note ---
DATE: 04/24/2020 Medicine Progress Note SUBJECTIVE: The patient was evaluated earlier this morning. He was doing well with no complaints. ENTs note shows bilateral vocal cord paralysis. PHYSICAL EXAMINATION: VITAL SIGNS: Temperature is 97.9, pulse 82, respiratory rate is 21, blood pressure 115/83, pulse ox 99% on room air. GENERAL: Not in acute distress. Alert and oriented x3. Cooperative on examination. HEENT: Head is normocephalic and atraumatic. Eyes; pupils are reactive to light bilaterally. Extraocular movements intact bilaterally. Throat; no evidence of erythema or exudates in the posterior pharynx. Has poor dentition. NECK: Supple. Good range of motion. PULMONARY: Clear to auscultation bilaterally. No wheezing, rales, or rhonchi. No crackles appreciated. CARDIOVASCULAR: Positive S1, S2. No murmurs, rubs, or gallops appreciated. ABDOMEN: Soft and nontender to palpation. Bowel sounds present. MUSCULOSKELETAL: Strength is 5/5 throughout. No evidence of any muscle deficits on examination. No weakness appreciated.. NEUROLOGIC: Cranial nerves II through XII grossly intact. No evidence of any neurological deficits. SKIN: Intact. Warm to touch. Good cap refill. PSYCHIATRIC: Normal affect and mood. EXTREMITIES: No edema. Good range of motion throughout. LABORATORY DATA: Show white count 9.8, hemoglobin 11, hematocrit is 34.7, platelets of 263. Chemistry; sodium 139, potassium 3.5, chloride 100, bicarb 30, anion gap of 12, BUN is 20, creatinine 1.2. His glucose was 386. A1c was 10.9, uric acid was 4.4, parathyroid levels intact, PTH are pending. Thyroid peroxidase antibodies less than 9. Coronavirus PCR is pending. Microbiology, urine cultures, no growth. IMAGING STUDIES: Nothing new. IMPRESSION: 1. Acute respiratory distress secondary to stridor. 2. Status post fiberoptic laryngeal scope, found to have bilateral vocal cord paralysis with marginal glottic airway. 3. History of thyroid resection with residual thyroid nodules. 4. Right-sided hydronephrosis with staghorn calculi. 5. Morbid obesity. 6. Bilateral lower extremity wound infection. PLAN: At this time, ENT recommendations noted. No further workup needed. He will need to follow up as an outpatient with ENT. Continue with insulin sliding scale. Endocrinology is following closely and adjusting medications accordingly. Thyroid peroxidase antibodies found to be negative. As for his right-sided hydronephrosis staghorn calculi, I am waiting on Urology to determine when intervention will be performed. CT pelvis has been noted. Continue with local wound care, IV antibiotics for the lower extremity edema and an infection. Get a.m. labs. Follow all c consultant's recommendations. Lovenox for DVT prophylaxis. MD EMERALD Vargas/MODL /[id number]
[2020-04-25 05:34] LABS: BASOPHILS % 0.1 % (0.0-1.0); HEMOGLOBIN 13.3 g/dL (14.0-18.0); LYMPHOCYTES # (AUTO) 1.2 (1.0-3.2); LYMPHOCYTES % 11.4 % (18.0-39.1); MEAN CORPUSCULAR HEMOGLOBIN 28.6 pg (28-32); MEAN CORPUSCULAR HGB CONC 32.4 g/dL (31-35); MEAN CORPUSCULAR VOLUME 88.2 fL (81-99); MONOCYTES # (AUTO) 0.5 (0.2-0.8); MONOCYTES % 5.2 % (4.4-11.3); NEUTROPHILS # (AUTO) 8.4 (2.1-6.9); NEUTROPHILS % 82.9 % (38.7-80.0); PLATELET COUNT 319 x10e3/uL (140-360); RED BLOOD COUNT 4.65 x10e6/uL (4.3-5.7); RED CELL DISTRIBUTION WIDTH 13.4 % (11.7-14.4)
[2020-04-25 05:51] LABS: ANION GAP 14.3 mmol/L (8-16); BLOOD UREA NITROGEN 24 mg/dL (7-26); BUN/CREATININE RATIO 22 (6-25); CALCIUM 9.2 mg/dL (8.4-10.2); CARBON DIOXIDE 33 mmol/L (22-29); CHLORIDE 98 mmol/L (98-107); CREATININE, SERUM 1.08 mg/dL (0.72-1.25); EST GLOMERULAR FILTRATION RATE > 60 ML/MIN (60-); GLUCOSE 120 mg/dL (74-118); POTASSIUM 3.3 mmol/L (3.5-5.1); SODIUM 142 mmol/L (136-145)
[2020-04-25] MEDS: PIPER-TAZ 3.375 GM 50 ML IV SCH ×3 (05:59→21:38)
--- NOTE | 2020-04-25 07:00 | NUR ---
BEDSIDE SHIFT REPORT ROUNDS FROM [facility]. PT DENIES NEEDS AT THIS TIME.
--- NOTE | 2020-04-25 07:00 | NUR ---
BEDSIDE SHIFT REPORT ROUNDS FROM [facility]. PT DENIES NEEDS AT THIS TIME.
[2020-04-25] MEDS: INSULIN REGULAR, HUMAN 100 UNIT/1 ML 3ML VIAL SQ SCH ×4 (07:30→21:31)
[2020-04-25] MEDS: METHYLPREDNISOLONE SOD SUCC 40 MG/ML VIAL 1ML IV SCH ×2 (08:53→21:32)
[2020-04-25] MEDS: METOPROLOL TARTRATE 25 MG TAB PO SCH ×3 (08:53→21:32)
--- NOTE | 2020-04-25 12:43 | Consultation ---
DATE OF CONSULTATION: 04/25/2020 REASON FOR CONSULTATION: Atrial fibrillation. CHIEF COMPLAINT: Shortness of breath, stridor. HISTORY OF PRESENT ILLNESS: This is a 74-year-old male with history of diabetes, hypertension, obesity, lymphedema, status post right partial thyroidectomy complicated by bilateral vocal cord paralysis. The patient presents to [facility] ER with complaints of shortness of breath, was noted with stridor, was treated with steroid therapy with improved shortness of breath. BNP at the time was 21. During workup, the patient was noted with a right kidney stone, in which Urology has been consulted and is planning for possible lithotripsy in a.m. However, overnight or yesterday evening, the patient was noted to be in atrial fibrillation. Cardiology was consulted to evaluate the patient. The patient was seen. Denies any shortness of breath or chest pain or palpitations. At this time states that he feels fine. Tele reviewed, currently in atrial fibrillation with a heart rate in the 90s to low 100. PAST MEDICAL HISTORY: Diabetes, hypertension, obesity, lymphedema, vocal cord paralysis about 18 months ago, status post partial thyroidectomy. PAST SURGICAL HISTORY: Partial thyroidectomy about 18 months ago. SOCIAL HISTORY: He is single. He works at a [employer] in [place]. Denies any alcohol use or tobacco use. FAMILY HISTORY: Reports mother with a history of CAD and reports both parents of unknown cause. HOME MEDICATIONS: Include metformin 500 b.i.d. and metoprolol 25 mg daily. ALLERGIES: TO NO KNOWN ALLERGIES. REVIEW OF SYSTEMS: GENERAL: Denies any weight changes, fatigue, weakness, fevers, chills, or night sweats. SKIN: No rashes, however, does have bilateral lower extremity sores. HEENT: Denies any nausea, vomiting, vision change, blurred vision, double vision, epistaxis, or sore throat. Positive for hoarseness post his partial thyroidectomy. HEART: Denies any chest pains or palpitations. Does report shortness of breath on admission and dyspnea on exertion. Denies any orthopnea or PND. Does report lower extremity edema. RESPIRATORY: Shortness of breath on admission and wheezing. Denies any coughing. Denies any hemoptysis. GI: Reports good appetite. No nausea, vomiting, diarrhea, constipation, melena, tarry or bloody stools. URINARY: Positive for frequency and urgency. Denies any dysuria or hematuria. VASCULAR: Reports lower extremity edema and lower extremity wounds. MUSCULOSKELETAL: Positive for generalized joint pains and back pains. NEUROLOGIC: Denies any numbness, tingling, paralysis, weakness, fainting, or blackouts. HEMATOLOGY: Denies any anemia or easy bruising. ENDOCRINE: Denies any heat or cold intolerance, polyuria, polydipsia, or polyphagia. PHYSICAL EXAMINATION: VITAL SIGNS: Height 75 inches, weight 245 pounds. Temperature 97.3, pulse 95, respiratory rate 19, blood pressure 122/79, and pulse ox 100% on room air. GENERAL: Appears stated age, reliable informant, in no acute distress. Positive hoarseness. SKIN: No rashes or bruises, however, lower extremities are wrapped. HEENT: Normocephalic. Pupils are equal, round, and reactive. Extraocular movements intact. Trachea midline. There is a scar in his neck region, status post partial thyroidectomy. No carotid bruits noted. Oral mucosa pink. HEART: Irregular rhythm. Soft systolic murmur heard in the right upper sternal border. PMI about 5th intercostal space. LUNGS: Bilateral breath sounds clear to auscultation. No wheezes or rales noted. ABDOMEN: Soft, nontender, and nondistended. No organomegaly noted. MUSCULOSKELETAL: Good muscle strength throughout. There is lower extremity edema with lower extremity legs wrapped. VASCULAR: +2 radial pulses, +1 DP/PT pulses bilaterally. NEUROLOGIC: Cranial nerves 2 through 12 seem intact. LABORATORY DATA: Sodium 142, potassium 3.5, chloride 100, bicarb 30, BUN 20, creatinine 1.2, and glucose 386. A1c 10.9. TSH 0.09. White count 10, hemoglobin 13, hematocrit 41, and platelets 319. CT chest showing no acute intrathoracic process, however, does show a right renal stone with [id number] hydronephrosis. No EKG in chart. ASSESSMENT: 1. Respiratory distress secondary to stridor. 2. Bilateral vocal cord paralysis post partial thyroidectomy. 3. Right hydronephrosis with renal calculi. 4. Atrial fibrillation. 5. Morbid obesity. 6. Diabetes, uncontrolled. 7. Hypertension. 8. Lymphedema. PLAN: The patient presents to [facility] ER with complaints of shortness of breath with stridor, was treated with steroid to improve stridor. The patient with chronic hoarseness post thyroidectomy. The patient noted with right renal stone calculus with [id number] hydronephrosis. Urology on board for possible lithotripsy. The patient noted in atrial fibrillation initially in evening. Cardiology was consulted. Currently, the patient is in atrial fibrillation with heart rates in the 90s to low 100s. We will increase beta-johann therapy. We will get echo to evaluate heart function and structure. We will order an EKG. We will continue to monitor the patient and adjust cardiac therapy as clinical course dictates. Thank you very much for this consult. Will not recommend any procedure in this patient unless absolutely needed 2/2 to his comorbid conditions and bilateral vocal palsy OAC to be considered Dictated by Dl Hopkins NP Bhargavi Lynn MD DC/JAZLYN /[id number]
--- NOTE | 2020-04-25 13:39 | Progress Note ---
DATE: SUBJECTIVE: The patient is breathing slightly better, but still has difficulty speaking and severe hoarseness. The patient was seen by Dr. Trujillo of ENT. He appears to have bilateral vocal cord paralysis with a very narrow glottis upon direct examination of the vocal cords. The patient was also seen by Urology and felt to require ureteral stent because of the hydronephrosis. The patient also needs lithotripsy. PHYSICAL EXAMINATION: VITAL SIGNS: The patient is afebrile. The blood pressure is 133/80, saturation is 97%. HEENT: Shows no facial swelling or erythema. CARDIAC: Reveals regular rate and rhythm with normal S1, S2. LUNGS: Auscultation of lungs reveals some prolonged expiratory phase and some mild stridor. ABDOMEN: Soft nontender. There is no rebound or guarding. EXTREMITIES: Shows no leg edema or calf tenderness. LABORATORY DATA: White blood cell count is 10.217 and hemoglobin is 13.3. The platelet count is 319. The BUN to creatinine ratio is 25 to 1.08. The potassium is 3.3. The carbon dioxide is 33. IMPRESSION: 1. Bilateral vocal cord paralysis with narrowing of the glottis and intermittent stridor. 2. Chronic lymphedema. 3. Staghorn calculus on the right side with a moderate right hydronephrosis. 4. Hypertension. 5. Prior thyroid resection. PLAN: 1. Recommend against any operative procedures unless there is an imminent risk of or irreversible injury. 2. Endotracheal intubation could further inflame the bilateral vocal cord paralysis and resulted in complete upper airway obstruction. 3. The patient is scheduled to see a fellowship trained the laryngeal subspecialist in [place] on Wednesday of next week. I think the patient should go to the scheduled appointment. 4. Continue to taper steroids. 5. Continue to control blood pressure. 6. Follow up with Urology after treatment of the bilateral vocal cord paralysis and upper airway compromise. Ashok Kapoor MD [facility]/JAZLYN /[id number]
[2020-04-25] MEDS ORDERED: POTASSIUM CHLORIDE 20 MEQ TAB CR PO ONE (13:45)
[2020-04-25] MEDS ORDERED: METOPROLOL TARTRATE 25 MG TAB PO SCH (14:00)
[2020-04-25] MEDS: ENOXAPARIN SOD INJ 40 MG/0.4 ML SYR SC SCH (17:00)
[2020-04-25] MEDS ORDERED: DIGOXIN 0.25 MG TAB PO ONE (17:00)
[2020-04-25] MEDS ORDERED: DIGOXIN 0.125 MG TAB PO ONE (17:15)
[2020-04-25] MEDS: DIGOXIN INJ 0.25 MG/ML 2 ML AMP IV SCH ×2 (17:33→18:56)
--- NOTE | 2020-04-25 17:48 | NUR ---
PT HAS STILL BEEN RUNNING AFIB WITH RVR. DR. LEE CALLED. ORDERS GIVEN.
[2020-04-25] MEDS: INSULIN GLARGINE 100 UNITS/ML VIAL SQ SCH (21:31)
[2020-04-25] MEDS: MELATONIN 5 MG TABLET PO PRN (21:32)
[2020-04-25] MEDS: VALSARTAN 80 MG TAB PO SCH (21:32)
[2020-04-26] VITALS (8 sets, daily range): BP systolic 118–135; BP diastolic 75–93
[2020-04-26] MEDS ORDERED: PANTOPRAZOLE SO20 MG PO (00:34)
[2020-04-26] MEDS ORDERED: LEVOTHYROXINE175 MCG PO (00:34)
[2020-04-26] MEDS ORDERED: GLIMEPIRIDE4 MG PO (00:34)
[2020-04-26] MEDS ORDERED: ELIQUIS5 MG PO (00:34)
[2020-04-26] MEDS ORDERED: AMLODIPINE BESY10 MG PO (00:34)
[2020-04-26] MEDS ORDERED: OMEPRAZOLE20 MG PO (00:35)
--- NOTE | 2020-04-26 00:47 | Progress Note ---
DATE: 04/25/2020 Medicine Progress Note SUBJECTIVE: The patient was seen and evaluated at approximately around 1:40 p.m. this afternoon. The patient is doing well. Pulmonary is not going to clear the patient for any kind of procedure due to concerns of underlying vocal cord paralysis. LABORATORY DATA: White count 10.1, hemoglobin 13, hematocrit 41, platelets of 319. Chemistry, sodium 142, potassium 3.3, chloride 98, bicarb 33, anion gap of 14. BUN is 24, creatinine is 1.08. Glucose is 120, calcium is 9.2. Microbiology was found to be negative. IMAGING: Nothing new. PHYSICAL EXAMINATION: VITAL SIGNS: Temperature is 97.9, pulse 96, respiratory rate is 22, blood pressure 108/90, pulse ox 99% on room air. GENERAL: Not in acute distress. Alert and oriented x3. Cooperative on examination. PULMONARY: Clear to auscultation bilaterally. No wheezing, rales, or rhonchi. No crackles appreciated. CARDIOVASCULAR: Positive S1, S2. No murmurs, rubs, or gallops appreciated. GASTROINTESTINAL: Abdomen is soft, nondistended, and nontender to palpation. Bowel sounds present. MUSCULOSKELETAL: Strength is 5/5 throughout. No evidence of any muscle deficits on examination. No weakness appreciated.. NEUROLOGIC: Cranial nerves 2 through 12 grossly intact. No evidence of any neurological deficits. SKIN: Intact. Warm to touch. Good cap refill. PSYCHIATRIC: Normal affect and mood. EXTREMITIES: No edema. Good range of motion throughout. IMPRESSION: 1. Bilateral vocal cord paralysis with narrowing of the glottis and intermittent stridor. 2. Atrial fibrillation with rapid ventricular response. 3. History of thyroid resection with residual thyroid nodules. 4. Right-sided hydronephrosis with staghorn calculi. 5. Morbid obesity. 6. Bilateral lower extremity wound infection. PLAN: At this time, Pulmonary does not recommend any surgical intervention or any procedure at this time due to his underlying stridor and vocal cord paralysis. ENT signed off. No further workup needed. Endocrinology recommends outpatient followup and possible further thyroid resection as an outpatient. As for his nephrolithiasis, Urology want to undergo lithotripsy. Pulmonary does not recommend it as well as Cardiology does not recommend due to the patient's multiple comorbidities. The patient has no evidence of sepsis. His white count is normal. He has no fever and at this time, the patient can likely have this procedure done as an outpatient once his respiratory and his vocal cord situation has been resolved as an outpatient. Otherwise, the patient is doing well. As for his atrial fibrillation, his heart rate is controlled, his metoprolol was increased by Cardiology. I will need to talk with Cardiology about anticoagulation therapy as an outpatient. MD EMERALD Vargas/MODL /[id number]
[2020-04-26] MEDS: ALBUTEROL/IPRATROPIUM 3 ML NEB NEB SCH ×4 (01:12→19:40)
[2020-04-26] MEDS: METOPROLOL TARTRATE 25 MG TAB PO SCH ×4 (01:56→10:06)
--- NOTE | 2020-04-26 02:32 | NUR ---
PATIENT REFUSING TO TAKE METOPROLOL, EDUCATED PATIENT ON IMPORTANCE OF TAKING MEDICATION. HR 100-115 AFIB. SPENT OVER 30 MIN EDUCATING PATIENT. PATIENT CONTINUES TO REFUSE MEDICATIONS. PRINTED OUT EDUCATIONAL MATERIAL ON AFIB AND HANDED TO PATIENT.
--- NOTE | 2020-04-26 02:34 | NUR ---
PATIENT IS REFUSING TO SIGN CONSENT FOR ANY PROCEDURE UNTIL HE TALKS TO MD.
[2020-04-26 05:56] LABS: BASOPHILS % 0.2 % (0.0-1.0); HEMATOCRIT 43.1 % (38.2-49.6); HEMOGLOBIN 13.9 g/dL (14.0-18.0); LYMPHOCYTES # (AUTO) 1.6 (1.0-3.2); LYMPHOCYTES % 14.1 % (18.0-39.1); MEAN CORPUSCULAR HEMOGLOBIN 28.3 pg (28-32); MEAN CORPUSCULAR HGB CONC 32.3 g/dL (31-35); MEAN CORPUSCULAR VOLUME 87.6 fL (81-99); MONOCYTES # (AUTO) 0.9 (0.2-0.8); NEUTROPHILS # (AUTO) 8.7 (2.1-6.9); PLATELET COUNT 352 x10e3/uL (140-360); RED BLOOD COUNT 4.92 x10e6/uL (4.3-5.7); RED CELL DISTRIBUTION WIDTH 13.6 % (11.7-14.4)
[2020-04-26] MEDS: PIPER-TAZ 3.375 GM 50 ML IV SCH ×2 (06:08→17:02)
[2020-04-26 06:34] LABS: ANION GAP 10.9 mmol/L (8-16); BLOOD UREA NITROGEN 30 mg/dL (7-26); BUN/CREATININE RATIO 26 (6-25); CALCIUM 9.1 mg/dL (8.4-10.2); CARBON DIOXIDE 31 mmol/L (22-29); CHLORIDE 100 mmol/L (98-107); CREATININE, SERUM 1.15 mg/dL (0.72-1.25); EST GLOMERULAR FILTRATION RATE > 60 ML/MIN (60-); GLUCOSE 190 mg/dL (74-118); POTASSIUM 3.9 mmol/L (3.5-5.1); SODIUM 138 mmol/L (136-145)
[2020-04-26 06:49] LABS: INR 0.88; PROTHROMBIN TIME 12.5 seconds (11.9-14.5)
--- NOTE | 2020-04-26 07:00 | NUR ---
BEDSIDE SHIFT REPORT ROUNDS FROM [facility]. PT DENIES NEEDS AT THIS TIME.
[2020-04-26] MEDS: METHYLPREDNISOLONE SOD SUCC 40 MG/ML VIAL 1ML IV SCH (08:45)
[2020-04-26] MEDS: INSULIN REGULAR, HUMAN 100 UNIT/1 ML 3ML VIAL SQ SCH ×4 (08:46→21:30)
[2020-04-26] MEDS ORDERED: METOPROLOL TARTRATE 25 MG TAB PO SCH (12:00)
[2020-04-26] MEDS ORDERED: METOPROLOL TARTRATE 50 MG TAB PO SCH (13:00)
[2020-04-26] MEDS ORDERED: SODIUM CHLORIDE 0.9% 250ML 250 ML ONE (14:01)
[2020-04-26] MEDS ORDERED: LIDOCAINE HCL 1% LOCAL INJ 20 ML VIAL ONE (14:01)
[2020-04-26] MEDS ORDERED: IOPAMIDOL 300MG/ML 100 ML INFUS..BTL IV ONE (14:01)
--- NOTE | 2020-04-26 14:45 | NUR ---
PT OFF THE UNIT FOR IR PROCEDURE.
--- NOTE | 2020-04-26 16:44 | NUR ---
PT BACK TO THE UNIT FROM IR. ESPINO WNL. PT DENIES NEEDS AT THIS TIME. COVERED WITH WARM BLANKETS.
[2020-04-26] MEDS: METOPROLOL TARTRATE 50 MG TAB PO SCH ×2 (17:00→21:29)
[2020-04-26] MEDS: ENOXAPARIN SOD INJ 40 MG/0.4 ML SYR SC SCH (17:00)
[2020-04-26] MEDS: LEVOTHYROXINE SODIUM 50 MCG TAB PO SCH (17:50)
[2020-04-26] MEDS: LEVOTHYROXINE SODIUM 125 MCG TAB PO SCH (17:50)
[2020-04-26] MEDS ORDERED: INSULIN GLARGINE 100 UNITS/ML VIAL SQ SCH (21:00)
[2020-04-26] MEDS: VALSARTAN 80 MG TAB PO SCH (21:23)
--- NOTE | 2020-04-26 23:16 | Progress Note ---
DATE: 04/26/2020 Medicine Progress Note SUBJECTIVE: The patient was seen earlier this afternoon around 1:30 p.m. The patient was still contemplating about a nephrostomy tube, which was recommended by the urologist. Pulmonary did not clear the patient for procedure due to his underlying breathing issues and stridor. PHYSICAL EXAMINATION: VITAL SIGNS: Temperature is 97.6, pulse 88, respiratory rate is 20, blood pressure 124/84, and pulse ox 99% on room air. GENERAL: Not in acute distress. Alert and oriented x3. Cooperative on examination. HEENT: Head; normocephalic, atraumatic. Eyes; pupils are equal, round, and reactive to light bilaterally. Extraocular movements intact bilaterally. Throat; no evidence of erythema or exudates in the posterior pharynx. Has poor dentition. NECK: Supple. Good range of motion. PULMONARY: Clear to auscultation bilaterally. No wheezing, no rales, no rhonchi, no crackles appreciated. CARDIOVASCULAR: Positive S1 and S2. No murmurs, rubs, or gallops appreciated. ABDOMEN: Soft, nondistended, and nontender to palpation. Bowel sounds present. MUSCULOSKELETAL: Strength is 5/5 throughout. No evidence of any muscle deficits on examination. No weakness appreciated. NEUROLOGIC: Cranial nerve II through XII grossly intact. No evidence of any neurological deficits on exam. SKIN: Intact. Warm to touch. Good cap refill. PSYCHIATRIC: Normal affect and mood. EXTREMITIES: No edema. Good range of motion throughout. LABORATORY FINDINGS: Show white count 11, hemoglobin 13.9, hematocrit is 43, platelets of 352. Chemistry; sodium 138, potassium 3.9, chloride 100, bicarb 31, anion gap of 10, BUN is 30, creatinine is 1.1, glucose was 235. Hemoglobin A1c was found to be 10.9. Urinalysis noted. IMMUNOLOGY: Thyroid peroxidase antibody was less than 9. Coronavirus PCR was not detected. MICROBIOLOGY: Urine cultures were negative. IMAGING STUDIES: None. IMPRESSION: 1. 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 2. Atrial fibrillation with rapid ventricular response. 3. History of thyroid resection with residual thyroid nodules. 4. Right-sided hydronephrosis with staghorn calculi. 5. Morbid obesity. 6. Bilateral lower extremity wound infection, improving. PLAN: At this time, Pulmonary did not clear the patient for any surgical intervention. He needs to follow up with ENT as an outpatient, which he has an appointment next week. As for his atrial fibrillation, his rate is controlled. Anticoagulation was held as the patient does need a nephrostomy tube. I did discuss this with Endocrinology in terms of a thyroid nodule and he needs to follow up as an outpatient for resection. As for his nephrostomy tube, the patient was debating back and forth by getting a nephrostomy tube. Since he cannot have any surgical intervention and have lithotripsy, the next best option was a nephrostomy tube. The patient was still contemplating back and forth about that as well. Based on that, that will help us determine if he could start on anticoagulation after his procedure for his atrial fibrillation. I discussed this with the patient and this patient's family member at bedside. They verbalized understanding. As for his lower extremity wounds, this is all secondary to edema and possibly underlying lymphedema, which has improved dramatically while here in the hospital stay. The patient verbalized understanding and agrees to plan of care. We will follow with showroom sales consultant's recommendations. MD EMERALD Vargas/JAZLYN /[id number]
[2020-04-27] VITALS: BP 125/89
[2020-04-27] MEDS: PIPER-TAZ 3.375 GM 50 ML IV SCH ×2 (00:29→08:43)
[2020-04-27] MEDS: ALBUTEROL/IPRATROPIUM 3 ML NEB NEB SCH ×3 (00:48→13:00)
[2020-04-27 05:25] VITALS: BP 121/89
[2020-04-27] MEDS: LEVOTHYROXINE SODIUM 125 MCG TAB PO SCH (05:33)
[2020-04-27] MEDS: METOPROLOL TARTRATE 50 MG TAB PO SCH ×2 (05:33→12:20)
[2020-04-27] MEDS: LEVOTHYROXINE SODIUM 50 MCG TAB PO SCH (05:33)
[2020-04-27 05:44] LABS: BASOPHILS % 0.2 % (0.0-1.0); EOSINOPHILS # (AUTO) 0.1 (0.0-0.4); EOSINOPHILS % 0.5 % (0.0-6.0); HEMATOCRIT 44.5 % (38.2-49.6); HEMOGLOBIN 14.2 g/dL (14.0-18.0); LYMPHOCYTES # (AUTO) 3.4 (1.0-3.2); LYMPHOCYTES % 30.5 % (18.0-39.1); MEAN CORPUSCULAR HEMOGLOBIN 28.2 pg (28-32); MEAN CORPUSCULAR HGB CONC 31.9 g/dL (31-35); MEAN CORPUSCULAR VOLUME 88.5 fL (81-99); MONOCYTES # (AUTO) 1.1 (0.2-0.8); MONOCYTES % 10.1 % (4.4-11.3); NEUTROPHILS # (AUTO) 6.4 (2.1-6.9); NEUTROPHILS % 57.9 % (38.7-80.0); PLATELET COUNT 342 x10e3/uL (140-360); RED BLOOD COUNT 5.03 x10e6/uL (4.3-5.7); RED CELL DISTRIBUTION WIDTH 13.8 % (11.7-14.4)
[2020-04-27 06:07] LABS: DIGOXIN 0.49 ng/mL (0.8-2.0)
[2020-04-27 06:09] LABS: ALANINE AMINOTRANSFERASE 13 IU/L (0-55); ALBUMIN/GLOBULIN RATIO 0.8 (0.8-2.0); ALKALINE PHOSPHATASE 63 IU/L (40-150); ANION GAP 13.5 mmol/L (8-16); BLOOD UREA NITROGEN 25 mg/dL (7-26); BUN/CREATININE RATIO 25 (6-25); CALCIUM 9.1 mg/dL (8.4-10.2); CARBON DIOXIDE 28 mmol/L (22-29); CHLORIDE 103 mmol/L (98-107); EST GLOMERULAR FILTRATION RATE > 60 ML/MIN (60-); GLUCOSE 63 mg/dL (74-118); POTASSIUM 3.5 mmol/L (3.5-5.1); SODIUM 141 mmol/L (136-145)
[2020-04-27 07:27] VITALS: BP 120/77
[2020-04-27] MEDS: INSULIN REGULAR, HUMAN 100 UNIT/1 ML 3ML VIAL SQ SCH ×2 (07:30→11:02)
[2020-04-27] MEDS ORDERED: METHYLPREDNISOLONE SOD SUCC 40 MG/ML VIAL 1ML IV SCH (09:00)
[2020-04-27] MEDS ORDERED: FUROSEMIDE 40 MG TAB PO SCH (09:00)
[2020-04-27 11:24] VITALS: BP 119/78
[2020-04-27 11:32] VITALS: BP 119/78
--- NOTE | 2020-04-27 13:13 | Progress Note ---
DATE: SUBJECTIVE: The patient has less wheezing. He has less dyspnea. He is scheduled to see a laryngeal specialist early next week. He has nephrostomy tube placed. OBJECTIVE: VITAL SIGNS: The blood pressure is 119/78, saturation is 96%. The pulse is 85. HEENT: Shows no facial swelling or erythema. CARDIAC: Reveals regular rate and rhythm with a normal S1 and S2. There are no murmurs or rubs. LUNGS: Auscultation of lungs reveals few extra noises from stridor. ABDOMEN: Soft, nontender. There is no rebound or guarding. There is chronic leg edema. There is a nephrostomy tube in place. LABORATORY DATA: White blood cell count is 11. Hemoglobin is 14.2, and the platelet count is 342. The BUN to creatinine ratio is 25 to 1. The other electrolytes are within normal limits. ASSESSMENT: 1. Bilateral vocal cord paralysis with associated stridor. 2. Chronic lymphedema. 3. Staghorn calculus with moderate right hydronephrosis. 4. Hypertension. 5. Prior thyroid resection. PLAN: 1. Patient denies nephrostomy tube in place. 2. Complete antibiotics. 3. The patient to follow with laryngeal specialist early this week. Ashok Kapoor MD [facility]/JAZLYN /[id number]
[2020-04-27 15:43] VITALS: BP 115/80
--- NOTE | 2020-04-27 16:10 | NUR ---
Patient states he does not want to take Eliquis and is leaving. I explained that he can leave AMA but Dr. Swan stated he cannot discharge him home without Eliquis. Patient does not want to hear the risks with leaving AMA, he stated, "Im leaving". Dr Swan was notified.
--- NOTE | 2020-04-27 16:26 | NUR ---
AMA form was signed, tele and IV removed
--- NOTE | 2020-04-27 16:45 | Progress Note ---
DATE: 04/27/2020 Medicine Progress Note SUBJECTIVE: The patient is doing well today with no complaints. He did agree to have a nephrostomy tube placed on the right side on yesterday by IR. I spoke with Cardiology, recommended starting Eliquis tomorrow. PHYSICAL EXAMINATION: VITAL SIGNS: Temperature is 97.9 pulse 85, respiratory rate 16, blood pressure 119/78 pulse ox 96% on room air. GENERAL: Not in acute distress. Alert and oriented x3. Cooperative on examination. HEENT: Head; normocephalic, atraumatic. Eyes; pupils are equal, round, and reactive to light bilaterally. Extraocular movements intact bilaterally. Throat; no evidence of erythema or exudates in the posterior pharynx. Has poor dentition. NECK: Supple. Good range of motion. PULMONARY: Clear to auscultation bilaterally. No wheezing, no rales, no rhonchi, no crackles appreciated. CARDIOVASCULAR: Positive S1 and S2. No murmurs, rubs, or gallops appreciated. ABDOMEN: Soft, nondistended, and nontender to palpation. Bowel sounds present. MUSCULOSKELETAL: Strength is 5/5 throughout. No evidence of any muscle deficits on examination. No weakness appreciated. NEUROLOGIC: Cranial nerve 2 through 12 grossly intact. No evidence of any neurological deficits on exam. SKIN: Intact. Warm to touch. Good cap refill. PSYCHIATRIC: Normal affect and mood. EXTREMITIES: No edema. Good range of motion throughout. LABORATORY DATA: Labs show white count is 11, hemoglobin 14, hematocrit 44, platelets of 342. Chemistry reviewed, stable. IMPRESSION: 1. 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 2. Atrial fibrillation with rapid ventricular response. 3. History of thyroid resection with residual thyroid nodules. 4. Right-sided hydronephrosis with staghorn calculi. 5. Status post nephrostomy tube. 6. Morbid obesity. 7. Bilateral lower extremity wound infection, presumed to be from lymphedema. PLAN: At this time, he will need to follow up with ENT and Pulmonary as an outpatient for further evaluation in terms of his vocal cord paralysis. In relation to his atrial fibrillation, the patient will go home on oral metoprolol 100 mg b.i.d. and he will be initiated on Eliquis tomorrow 5 mg p.o. b.i.d. I discussed this with Cardiology and agreed. The patient needs to stay overnight to be monitored very closely and initiate Eliquis starting tomorrow. As for Endocrinology, he will follow up on thyroid nodules and further workup as an outpatient. The patient has a nephrostomy tube. He will need to follow up with Urology as an outpatient for further management and care. In terms of this nephrostomy tube on Wednesday can come out. He will be educated on how to drain the nephrostomy tube. I discussed the plan of care with the patient and the patient's niece who is at bedside. They both verbalized understanding. MD EMERALD Vargas/JAZLYN /[id number]
[2020-04-27] MEDS ORDERED: INSULIN GLARGINE 100 UNITS/ML VIAL SQ SCH (21:00)
[2020-04-28] MEDS ORDERED: APIXABAN 5 MG TABLET PO SCH (09:00)
--- NOTE | 2020-04-28 20:50 | Discharge Summary ---
The patient left against medical advice. FINAL DISCHARGE DIAGNOSES: 1. 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 2. Atrial fibrillation with rapid ventricular response. 3. History of thyroid resection without residual thyroid nodules. 4. Right-sided hydronephrosis with staghorn calculi. 5. Status post nephrostomy tube due to the right-sided hydronephrosis. 6. Moderate morbid obesity. 7. Bilateral lower extremity wound infection, presumed to be from lymphedema. 8. The patient left against medical advice. CONSULTANTS: ENT, Pulmonary, Endocrinology, Cardiology, Urology. PHYSICAL EXAMINATION: VITAL SIGNS: Temperature is 97.4, pulse 90, respiratory rate is 20, blood pressure 115/80, and pulse ox 97% on room air. LABORATORY DATA: Show white count 11, hemoglobin 14, hematocrit is 44, and platelets of 342. Chemistry; sodium 141, potassium 3.5, chloride 103, bicarb 20, anion gap of 13, BUN is 25, creatinine is 1, glucose 63, and calcium 9.1. Total bilirubin is 0.6, AST 14, ALT 13, and alkaline phosphatase 63. BNP is 21. Troponins were negative. Albumin 3. TSH is 0.096. PTH is 1.27. Urinalysis shows 21-50 wbc's, 1+ protein. Immunology; thyroid peroxidase antibody less than nine. Serology; coronavirus nondetected. MICROBIOLOGY: Urine cultures no growth. IMAGING STUDIES: Chest CT, no acute intrathoracic process identified. Partially visualized staghorn-type calculus noted within the right renal pelvis with associated [id number] right-sided hydronephrosis. Soft-tissue neck CT shows a right hemithyroidectomy changes. Enlarged residual left thyroid lobe with 1.5 cm dominant hypodense nodule. Severe degenerative changes of the cervical spine as described above. CT abdomen and pelvis shows a right lower pole staghorn calculus and right pelvis calculus. Moderate right hydronephrosis. No left renal calculi or hydronephrosis. Thyroid ultrasound, left lower pole thyroid nodule measuring 2.1 cm. HOSPITAL COURSE: A 74-year-old male came into the ED with complaints of underlying shortness of breath, wheezing, needing further evaluation and management. While here, imaging studies noted with results above. ENT and Pulmonary were consulted. The patient underwent a laryngoscope at bedside by ENT, found to have a bilateral vocal cord paralysis with narrowing of the glottis with underlying intermittent stridor. ENT recommends outpatient followup in his office for further management and care. Pulmonary was consulted, was on steroids, neb treatments. The patient was not cleared for any surgical intervention or any procedures by Pulmonary due to his underlying stridor. The patient did develop atrial fibrillation with RVR, prompting Cardiology consultation. The patient is a very poor historian. He was on rate control medications. He was supposed to initiate on oral anticoagulation, but the patient left against medical advice. The patient also has a history of thyroid resection with residual thyroid nodules. Imaging studies consistent with residual thyroid nodules. ENT was consulted. The patient will need further evaluation and resection of the thyroid nodules as an outpatient. The patient was found to have an incidental right-sided hydronephrosis with staghorn calculi seen on imaging studies, prompting Urology consultation. Since the patient was not cleared for any kind of surgical intervention by Pulmonary and Anesthesia, the patient underwent right-sided nephrostomy tube for decompression. The patient agreed to that procedure. I spoke with Cardiology and they recommended starting anticoagulation at least 24 to 36 hours to avoid any bleeding. The patient was also found to have bilateral lower extremity wound infection with underlying lymphedema and was treated accordingly by the wound care physician. The patient on 04/27/2020, did not want to stay any longer despite he needed to wait longer in order for us to initiate the oral anticoagulation therapy. Instead, the patient left against medical advice. The patient signed appropriate documentation. I discussed with the patient and the niece the risks involved in leaving against medical advice, but despite that the patient still wanted to leave and left against medical advice. Appropriate documentation was signed and placed in the chart. I discussed this with the nursing staff. MEDICATIONS: See medication reconciliation form. DISPOSITION: Home. The patient left against medical advice. CONDITION: Stable. DIET: Heart healthy. In the event of any worsening symptoms, the patient was advised to come back to the ED for further evaluation. Discharge summary took greater than 35 minutes. The patient left against medical advice despite being educated about the risks involved. The patient signed appropriate documentation and left against medical advice. MD EMERALD Vargas/JAZLYN /[id number]
== END 2020-04-27 17:08 | disposition left against medical advice (07) | DRG 155 ==
LOC: ER 11:36 → ERHOLD 18:12 → MED/SURG2 04-23 00:06 → OBSVTOIN 04-24 11:13
PROVIDERS: ADMIT Internal Medicine; ATTEND Internal Medicine
PROC: 0CJS8ZZ Inspection of Larynx, Via Natural or Artificial Opening Endoscopic (ICD-10-PCS; principal; 2020-04-24)
DX: J38.02 Paralysis of vocal cords and larynx, bilateral (principal); N13.2 Hydronephrosis with renal and ureteral calculous obstruction; L03.116 Cellulitis of left lower limb; L03.115 Cellulitis of right lower limb; R06.1 Stridor; E87.6 Hypokalemia; D64.9 Anemia, unspecified; R06.03 Acute respiratory distress; E89.0 Postprocedural hypothyroidism; I10 Essential (primary) hypertension; E11.9 Type 2 diabetes mellitus without complications; E78.5 Hyperlipidemia, unspecified; E66.01 Morbid (severe) obesity due to excess calories; E04.2 Nontoxic multinodular goiter; G47.30 Sleep apnea, unspecified; I89.0 Lymphedema, not elsewhere classified; I48.91 Unspecified atrial fibrillation; Z68.34 Body mass index [BMI] 34.0-34.9, adult; Z79.84 Long term (current) use of oral hypoglycemic drugs
CPT/HCPCS: 36415; 50430; 70491; 71260; 74176; 76536; 80048; 80053; 80162; 81001; 82550; 82553; 82948; 83036; 83880; 83970; 84439; 84443; 84484; 84550; 85025; 85610; 86376; 87086; 87635; 93005; 93306; 94640; 96372; 97139; 99284; G0378; J1160; J1650; J1815; J1817; J1940; J2001; J2543; J2920; J2930; J7050; J7799; Q0162; Q9967

== ENCOUNTER 2020-05-31 23:16 | Emergency (ER) | payer OTHER ==
[~2020-05-31] VITALS: Ht 190.5 cm; Wt 123.4 kg
[~2020-05-31 23:16] MED LIST: AMLODIPINE BESY10 MG PO; ELIQUIS5 MG PO; GLIMEPIRIDE4 MG PO; LEVOTHYROXINE175 MCG PO; METFORMIN HCL500 MG PO; METOPROLOL SUCC25 MG PO; OMEPRAZOLE20 MG PO; PANTOPRAZOLE SO20 MG PO
--- NOTE | 2020-05-31 23:36 | Emergency Department Note ---
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 Historian: Patient, Family Member Arrival Mode: Car Onset (how long ago): hour(s) (4) Location: right nephrostomy tube Quality: no draining, Radiation: Reports non-radiation Severity: mild Onset quality: sudden Duration (how long): hour(s) (4) Timing of current episode: constant Progression: resolved Chronicity: new Context: Reports recent surgery (right nephrostomy tube); Denies recent illness Relieving factors: none Exacerbating factors: none Associated symptoms: Reports denies other symptoms Past Medical/Family History Physician Review I have reviewed the patient's past medical and family history. Any updates have been documented here. Past Medical History Recent Fever: No Clinical Suspicion of Infectio: No New/Unexplained Change in Ment: No Past Medical History: Hypertension, Diabetes, Hyperlipedemia Other Medical History: vericose vein, bloot clot Other Surgery: thyroidectomy Social History Smoking Cessation: Never Smoker Counseling Performed: No Alcohol Use: None Family History Family history of heart diseas: No Other family history htn, dm Other Last Tetanus: UNKNOWN Any Pre-Existing Lines (PICC,: No Review of Systems Review of Systems Constitutional: Reports no symptoms EENTM: Reports no symptoms Cardiovascular: Reports no symptoms Respiratory: Reports no symptoms Gastrointestinal: Reports no symptoms Genitourinary: Reports as per HPI Musculoskeletal: Reports no symptoms Integumentary: Reports no symptoms Neurological: Reports no symptoms Psychological: Reports no symptoms Endocrine: Reports no symptoms Hematological/Lymphatic: Reports no symptoms Physical Exam Related Data Allergies: Coded Allergies: No Known Allergies (Unverified , 04/22/20) Triage Vital Signs Vital Signs Date Time Temp Pulse Resp B/P (MAP) Pulse Ox O2 Delivery O2 Flow Rate FiO2 05/31/20 23:23 98.4 84 19 131/73 99 Room Air Vital signs reviewed: Yes Physical Exam CONSTITUTIONAL Constitutional: Present well-developed, Present well-nourished HENT HENT: Present normocephalic, Present atraumatic, Present oropharynx clear/moist, Present nose normal HENT L/R: Present left ext ear normal, Present right ext ear normal EYES Eyes: Reports PERRL, Reports conjunctivae normal NECK Neck: Present ROM normal PULMONARY Pulmonary: Present effort normal, Present breath sounds normal CARDIOVASCULAR Cardiovascular: Present regular rhythm, Present heart sounds normal, Present capillary refill normal, Present normal rate GASTROINTESTINAL Abdominal: Present soft, Present nontender, Present bowel sounds normal GENITOURINARY Genitourinary: Present exam deferred SKIN Skin: Present warm, Present dry MUSCULOSKELETAL Musculoskeletal: Present ROM normal, Present edema (bilateral lower legs), Present other (nephrostomy right back, urine is activley draining into nephrostomy bag) NEUROLOGICAL Neurological: Present alert, Present oriented x 3, Present no gross motor or sensory deficits PSYCHOLOGICAL Psychological: Present mood/affect normal, Present judgement normal Assessment & Plan Medical Decision Making MDM pt with c/o clogged nephrostomy tube that began draining when he arrived to er. Assessment & Plan Final Impression: (1) Obstruction of nephrostomy tube Depart Disposition: HOME, SELF-CARE Last Vital Signs Date Time Temp Pulse Resp B/P (MAP) Pulse Ox O2 Delivery O2 Flow Rate FiO2 05/31/20 23:23 98.4 84 19 131/73 99 Room Air Home Meds Reported Medications Omeprazole (OMEPRAZOLE) 20 Mg Capsule.dr, 20 MG PO BID 04/26/20 Glimepiride (GLIMEPIRIDE) 4 Mg Tablet, 4 MG PO DAILY 04/26/20 Pantoprazole Sodium (PANTOPRAZOLE SODIUM) 20 Mg Tablet.dr, 20 MG PO DAILY 04/26/20 Amlodipine Besylate (AMLODIPINE BESYLATE) 10 Mg Tablet, 10 MG PO DAILY 04/26/20 Apixaban (Eliquis) 5 Mg Tablet, 5 MG PO BID 04/26/20 Levothyroxine Sodium (LEVOTHYROXINE SODIUM) 175 Mcg Tablet, 175 MCG PO DAILY 04/26/20 Metformin Hcl (METFORMIN HCL) 500 Mg Tablet, 500 MG PO BID, #60 TAB 04/23/20 Metoprolol Succinate (METOPROLOL SUCCINATE) 25 Mg Tab.er.24h, 25 MG PO DAILY 04/23/20 WLILIAMS EPSTEIN MD May 31, 2020 23:36
== END 2020-05-31 23:50 | disposition home or self-care (01) ==
LOC: ER 23:45
DX: Z43.6 Encounter for attention to other artificial openings of urinary tract (principal); I10 Essential (primary) hypertension; E11.9 Type 2 diabetes mellitus without complications; E78.5 Hyperlipidemia, unspecified
CPT/HCPCS: 99282

== ENCOUNTER → 2020-06-18 | Day surgery (SDC) | payer OTHER ==
[2020-06-13 10:51] LABS: BASOPHILS % 0.2 % (0.0-1.0); EOSINOPHILS # (AUTO) 0.2 (0.0-0.4); EOSINOPHILS % 2.4 % (0.0-6.0); HEMATOCRIT 33.4 % (38.2-49.6); HEMOGLOBIN 10.4 g/dL (14.0-18.0); LYMPHOCYTES # (AUTO) 1.6 (1.0-3.2); LYMPHOCYTES % 18.9 % (18.0-39.1); MEAN CORPUSCULAR HEMOGLOBIN 27.9 pg (28-32); MEAN CORPUSCULAR HGB CONC 31.1 g/dL (31-35); MEAN CORPUSCULAR VOLUME 89.5 fL (81-99); MONOCYTES # (AUTO) 0.7 (0.2-0.8); MONOCYTES % 8.1 % (4.4-11.3); NEUTROPHILS # (AUTO) 5.8 (2.1-6.9); NEUTROPHILS % 69.4 % (38.7-80.0); PLATELET COUNT 430 x10e3/uL (140-360); RED BLOOD COUNT 3.73 x10e6/uL (4.3-5.7); RED CELL DISTRIBUTION WIDTH 13.8 % (11.7-14.4)
--- NOTE | 2020-06-13 10:56 | Diagnostic Imaging Report ---
EXAMINATION: CHEST 2 VIEWS INDICATION: Pre-operative COMPARISON: Chest CT 04/22/2020 FINDINGS: LINES/TUBES:None LUNGS:The lungs are well-inflated. No focal consolidation or pulmonary edema. PLEURA:No pleural effusion or pneumothorax. MEDIASTINUM:The cardiomediastinal silhouette appears normal in size and shape. Right IJ and subclavian and left subclavian venous stents. Atherosclerotic calcifications of the thoracic aorta. BONES/SOFT TISSUES:No acute osseous injury. Right neck surgical clips. ABDOMEN:No free air under the diaphragm. IMPRESSION: No focal pneumonia or pulmonary edema. Signed by: Mihir Morrison MD on 06/13/2020 10:53 AM
--- NOTE | 2020-06-13 11:00 | Diagnostic Imaging Report ---
Exam: KUB - 2 views Indication: Preoperative Comparison: CT abdomen and pelvis of 04/23/2020 Findings: Right percutaneous nephroureteral stent with proximal loop in a lower pole calyx and distal loop in the bladder. Right lower pole calculus measures up to 2.1 cm. Right renal pelvis calculus measures up to 3.1cm. Coarse prostate calcifications. Phleboliths in the pelvis. Nonobstructive bowel gas pattern. No free air. No acute osseous injury. Degenerative changes of the visualized spine and both hip joints. Impression: Right percutaneous nephroureteral stent and right renal calculi as above. Signed by: Mihir Morrison MD on 06/13/2020 10:57 AM
[2020-06-13 11:06] LABS: ANION GAP 12.1 mmol/L (8-16); BLOOD UREA NITROGEN 9 mg/dL (7-26); BUN/CREATININE RATIO 10 (6-25); CALCIUM 9.4 mg/dL (8.4-10.2); CARBON DIOXIDE 31 mmol/L (22-29); CHLORIDE 105 mmol/L (98-107); CREATININE, SERUM 0.86 mg/dL (0.72-1.25); EST GLOMERULAR FILTRATION RATE > 60 ML/MIN (60-); GLUCOSE 136 mg/dL (74-118); POTASSIUM 3.1 mmol/L (3.5-5.1); SODIUM 145 mmol/L (136-145)
[~2020-06-18] MED LIST changes: +B&O 60MG R/S 60 MG SUPP PR ONE; +DOXYCYCLINE HY100 MG PO; +FLOMAX0.4 MG PO; +HYDROCORTISONE SOD SUCCINATE 100 MG VIAL ONE; +IOPAMIDOL 300MG/ML 50ML INFUS..BTL IV ONE; +JANUMET 50-1,01 EACH PO; +LIDOCAINE HCL 2% LOCAL INJ 5 ML SDV VIAL INJ ONE; +MELOXICAM7.5 MG PO; +ONDANSETRON HCL INJ 2MG/ML 2ML 2 MG/ML VIAL ONE; +PHENYLEPHRINE HCL 1% 10 MG/ML VIAL ONE; +PIPER-TAZ 3.375 GM 50 ML ONE; +POTASSIUM CHLO10 ME1 PO; +PREDNISONE10 MG PO; +PROPOFOL IV EMULSION 10 MG/ML 20 ML VIAL ONE; +SEVOFLURANE INHAL SOLN 250 ML PEN BTL ONE; +SUCCINYLCHOLINE CHLORIDE 20 MG/ML 10ML VIAL ONE
[2020-06-18 10:30] VITALS: BP 123/78
--- NOTE | 2020-06-24 11:47 | Operative Report ---
DATE OF PROCEDURE: 06/18/2020 SURGEON: Rashawn Lewis MD PREOPERATIVE DIAGNOSES: 1. Large right nephrolithiasis. 2. Right hydronephrosis due to stone. 3. Urinary tract infections. 4. Microhematuria. 5. Right nephrostomy tube. POSTOPERATIVE DIAGNOSES: 1. Large right nephrolithiasis. 2. Right hydronephrosis due to stone. 3. Urinary tract infections. 4. Microhematuria. 5. Right nephrostomy tube. 6. Urethral stricture disease. OPERATIONS PERFORMED: 1. Right-sided extracorporeal shockwave lithotripsy (separate procedure performed for the large nephrolithiasis). 2. Cystourethroscopy with calibration and dilation of urethral stricture (separate procedure performed for the diagnosis of stricture). 3. Cystourethroscopy with bilateral ureteral catheterization and retrograde ureteropyelography (separate procedure performed for the hematuria and urinary tract infections). 4. Interpretation of retrograde ureteropyelography. 5. Supervision of fluoroscopy, no radiologist present. 6. Cystourethroscopy with insertion of right indwelling ureteral stent (separate procedure performed for the diagnosis of the stent with diagnosis of the hydronephrosis). 7. Removal of nephrostomy tube with fluoroscopic guidance. ANESTHESIA: General. COMPLICATIONS: None. CLINICAL SUMMARY: Ashu Pandey is a complicated 75-year-old man. He has paralysis of his vocal cords. He apparently was previously cleared by ENT for this procedure and anesthesia. He is aware of the risks of bleeding, infection, injury to adjacent structures, need for additional procedures and elected to proceed. OPERATIVE PROCEDURE IN DETAIL: Informed consent was verified. Ashu Pandey was properly identified, taken to the operating room, placed on the lithotripsy table in supine position. Anesthesia was uneventfully begun. The patient's right nephrolithiasis was localized with biplanar fluoroscopy. A total of 3000 shocks were delivered to the renal pelvis stone. We did not treat the large lower pole stone because we ran out of shocks. The patient was carefully and gently repositioned in dorsal lithotomy position with all pressure points well padded. His genitalia were prepared and draped in usual sterile fashion. The cystoscope sheath with the visual obturator in place was atraumatically inserted in the patient's urethra was guided unremarkable distal urethra to the bulbar region where there was a stricture. We gently dilated across the stricture to 22.5-Sami in size and then went through the normal sphincteric region through the prostate bed, which was significant for bilobar prostatic hypertrophy with visually obstructing kissing lateral lobes. We identified the distal portion of the nephroureteral stent that was encrusted within the patient's bladder. A ureteral catheter was used to cannulate the left ureter and retrograde ureteral pyelograms were performed. We negotiated the open-ended catheter into the right ureter. We then retracted the nephrostomy tube by dislodging the locking suture and removed the nephrostomy tube with fluoroscopic guidance. Contrast was injected. The wire was placed in the cystoscope and fluoroscopic guidance. An indwelling ureteral stent was then placed, it was coiled in the patient's kidney as well as the patient's bladder. The retaining suture was cut short. Interpretation of retrograde ureteropyelography contrast was instilled in retrograde fashion bilaterally. The left side was unremarkable. There were no tumors, no stones, and no diverticula. Unobstructed drainage was observed. The right side exhibited right ureteral tortuosity and a large renal pelvis stone and a large lower pole stone which we did not treat. The stent was in good position coiled the patient's kidneys as well as the patient's bladder at the end of the case. The patient's bladder was drained. Cystoscope was withdrawn. A belladonna and opium suppository were placed revealing greater than 50 g prostate that was smooth, non-fluctuant without any nodules. The patient was then uneventfully reversed from anesthesia and taken to recovery room in stable condition. There were no complications to the procedure. He tolerated the procedure well. Explicit postop instructions were given to the patient's family. The patient needs ENT clearance. He needs optimization of his vocal cords. Doing surgery on this man puts him at risk for an unmanaged and uncontrolled airway problem. The patient's airway status needs to be addressed ideally before the next procedure. Rashawn Lewis MD [facility] /[id number]
== END | disposition home or self-care (01) ==
LOC: OR 05:39
PROVIDERS: ATTEND Urology
DX: N13.2 Hydronephrosis with renal and ureteral calculous obstruction (principal); N39.0 Urinary tract infection, site not specified; Z43.6 Encounter for attention to other artificial openings of urinary tract; N35.912 Unspecified bulbous urethral stricture, male; N40.0 Benign prostatic hyperplasia without lower urinary tract symptoms; N13.9 Obstructive and reflux uropathy, unspecified; J38.00 Paralysis of vocal cords and larynx, unspecified; I10 Essential (primary) hypertension; E11.9 Type 2 diabetes mellitus without complications; K21.9 Gastro-esophageal reflux disease without esophagitis; Z01.810 Encounter for preprocedural cardiovascular examination; Z01.812 Encounter for preprocedural laboratory examination; Z01.818 Encounter for other preprocedural examination; Z11.59 Encounter for screening for other viral diseases; Z79.84 Long term (current) use of oral hypoglycemic drugs
CPT/HCPCS: 36415 ×2; 50389; 50590; 52332; 71046; 74018; 80048; 82948; 84132; 85025; 87086; 87186; 93005; C1758; C1769; C2617; J0330; J1720; J2001; J2370; J2405; J2543; J2704; Q9967; U0002

== ENCOUNTER → 2021-01-17 | Day surgery (SDC) | payer BC, MEDICARE ==
[2021-01-15 15:53] LABS: BASOPHILS % 0.4 % (0.0-1.0); EOSINOPHILS # (AUTO) 0.2 (0.0-0.4); EOSINOPHILS % 3.2 % (0.0-6.0); HEMATOCRIT 32.2 % (38.2-49.6); HEMOGLOBIN 10.1 g/dL (14.0-18.0); LYMPHOCYTES # (AUTO) 1.7 (1.0-3.2); LYMPHOCYTES % 34.4 % (18.0-39.1); MEAN CORPUSCULAR HEMOGLOBIN 27.9 pg (28-32); MEAN CORPUSCULAR HGB CONC 31.4 g/dL (31-35); MONOCYTES # (AUTO) 0.7 (0.2-0.8); MONOCYTES % 12.8 % (4.4-11.3); NEUTROPHILS # (AUTO) 2.5 (2.1-6.9); NEUTROPHILS % 48.8 % (38.7-80.0); PLATELET COUNT 322 x10e3/uL (140-360); RED BLOOD COUNT 3.62 x10e6/uL (4.3-5.7)
[2021-01-15 16:11] LABS: ANION GAP 12.3 mmol/L (8-16); BLOOD UREA NITROGEN 14 mg/dL (7-26); BUN/CREATININE RATIO 13 (6-25); CALCIUM 8.7 mg/dL (8.4-10.2); CARBON DIOXIDE 24 mmol/L (22-29); CHLORIDE 108 mmol/L (98-107); CREATININE, SERUM 1.12 mg/dL (0.72-1.25); EST GLOMERULAR FILTRATION RATE > 60 ML/MIN (60-); GLUCOSE 83 mg/dL (74-118); POTASSIUM 4.3 mmol/L (3.5-5.1); SODIUM 140 mmol/L (136-145)
[~2021-01-17] MED LIST changes: +ACETAMINOPHEN/CODEINE 300MG - 30MG TAB ONE; +CEFTRIAXONE SOD 1 GM VIAL ONE; -HYDROCORTISONE SOD SUCCINATE 100 MG VIAL ONE; -LIDOCAINE HCL 2% LOCAL INJ 5 ML SDV VIAL INJ ONE; +MIDAZOLAM HCL 2 MG/2 ML VIAL ONE; -ONDANSETRON HCL INJ 2MG/ML 2ML 2 MG/ML VIAL ONE; -PHENYLEPHRINE HCL 1% 10 MG/ML VIAL ONE; -PIPER-TAZ 3.375 GM 50 ML ONE; -PROPOFOL IV EMULSION 10 MG/ML 20 ML VIAL ONE; -SEVOFLURANE INHAL SOLN 250 ML PEN BTL ONE; +SODIUM CHLORIDE 0.9% 50ML 100 ML ONE; -SUCCINYLCHOLINE CHLORIDE 20 MG/ML 10ML VIAL ONE
[2021-01-17 10:44] VITALS: BP 153/90
== END | disposition home or self-care (01) ==
LOC: OR 07:14
PROVIDERS: ATTEND Urology
DX: N20.0 Calculus of kidney (principal); N13.30 Unspecified hydronephrosis; N35.912 Unspecified bulbous urethral stricture, male; N40.1 Benign prostatic hyperplasia with lower urinary tract symptoms; N13.8 Other obstructive and reflux uropathy; R39.14 Feeling of incomplete bladder emptying; R80.9 Proteinuria, unspecified; R35.1 Nocturia; N39.0 Urinary tract infection, site not specified; N32.89 Other specified disorders of bladder; E11.9 Type 2 diabetes mellitus without complications; J44.9 Chronic obstructive pulmonary disease, unspecified; I25.10 Atherosclerotic heart disease of native coronary artery without angina pectoris; I11.0 Hypertensive heart disease with heart failure; I50.9 Heart failure, unspecified; E66.9 Obesity, unspecified; Z93.0 Tracheostomy status; Z01.810 Encounter for preprocedural cardiovascular examination; Z01.812 Encounter for preprocedural laboratory examination; Z01.818 Encounter for other preprocedural examination; Z20.822 Contact with and (suspected) exposure to COVID-19; Z79.84 Long term (current) use of oral hypoglycemic drugs; Z68.32 Body mass index [BMI] 32.0-32.9, adult; Z85.818 Personal history of malignant neoplasm of other sites of lip, oral cavity, and pharynx
CPT/HCPCS: 36415 ×2; 50590; 52332; 74018; 80048; 82948; 84550; 85025; 87086; 87186; 93005; C1758; C1769; C2617; J0696; Q9967; U0002

== ENCOUNTER → 2021-06-25 | Day surgery (SDC) | payer BC, MEDICARE ==
[2021-06-24 16:18] LABS: BASOPHILS % 0.5 % (0.0-1.0); EOSINOPHILS # (AUTO) 0.2 (0.0-0.4); EOSINOPHILS % 4.3 % (0.0-6.0); HEMATOCRIT 29.3 % (38.2-49.6); HEMOGLOBIN 9.3 g/dL (14.0-18.0); LYMPHOCYTES # (AUTO) 0.8 (1.0-3.2); LYMPHOCYTES % 20.1 % (18.0-39.1); MEAN CORPUSCULAR HEMOGLOBIN 29.7 pg (28-32); MEAN CORPUSCULAR HGB CONC 31.7 g/dL (31-35); MEAN CORPUSCULAR VOLUME 93.6 fL (81-99); MONOCYTES # (AUTO) 0.5 (0.2-0.8); NEUTROPHILS # (AUTO) 2.5 (2.1-6.9); NEUTROPHILS % 62.6 % (38.7-80.0); PLATELET COUNT 252 x10e3/uL (140-360); RED BLOOD COUNT 3.13 x10e6/uL (4.3-5.7)
[2021-06-24 16:34] LABS: ANION GAP 12.4 mmol/L (8-16); CALCIUM 8.8 mg/dL (8.4-10.2); CREATININE, SERUM 1.22 mg/dL (0.72-1.25); POTASSIUM 4.4 mmol/L (3.5-5.1)
[~2021-06-25] MED LIST changes: -ACETAMINOPHEN/CODEINE 300MG - 30MG TAB ONE; +ALBUTEROL SULF 0.083% NEB SOLN 3 ML NEB ONE; -B&O 60MG R/S 60 MG SUPP PR ONE; +BELLADONNA/OPIUM 30 MG SUPP RC ONE; -CEFTRIAXONE SOD 1 GM VIAL ONE; +DEXAMETHASONE SOD PHOS INJ 4 MG/ML VIAL ONE; +ESMOLOL HCL 100MG/10ML 10 MG/ML VIAL ONE; +FENTANYL CITRATE/PF 100MCG/2 ML INJ ONE; +GENTAMICIN 80MG/NS 100 ML 200 ML IV ONE; +LIDOCAINE HCL 2% LOCAL INJ 5 ML SDV VIAL INJ ONE; +ONDANSETRON HCL INJ 2MG/ML 2ML 2 MG/ML VIAL ONE; +PHENYLEPHRINE HCL 1% 10 MG/ML VIAL ONE; +PIPERACILLIN/TAZOBACTAM 3.375 GM VIAL ONE; +POVIDONE IODINE 0.05% 0.05 % ML PO ONE; +PROPOFOL IV EMULSION 10 MG/ML 20 ML VIAL ONE; +SEVOFLURANE INHAL SOLN 250 ML PEN BTL ONE; -SODIUM CHLORIDE 0.9% 50ML 100 ML ONE; +SODIUM CHLORIDE 0.9% 50ML 50 ML ONE; +VICODIN HP 10-1 EAC1 PO
[2021-06-25 12:30] VITALS: BP 106/70
== END | disposition home or self-care (01) ==
LOC: OR 06:52
PROVIDERS: ATTEND Urology
DX: N20.0 Calculus of kidney (principal); N13.30 Unspecified hydronephrosis; Z87.442 Personal history of urinary calculi; N40.1 Benign prostatic hyperplasia with lower urinary tract symptoms; R39.14 Feeling of incomplete bladder emptying; R35.1 Nocturia; Z96.0 Presence of urogenital implants; R31.29 Other microscopic hematuria; E66.9 Obesity, unspecified; R31.0 Gross hematuria; N35.911 Unspecified urethral stricture, male, meatal; I10 Essential (primary) hypertension; E11.9 Type 2 diabetes mellitus without complications; E78.00 Pure hypercholesterolemia, unspecified; E78.5 Hyperlipidemia, unspecified; J44.9 Chronic obstructive pulmonary disease, unspecified; Z01.810 Encounter for preprocedural cardiovascular examination; Z01.812 Encounter for preprocedural laboratory examination; Z01.818 Encounter for other preprocedural examination; Z20.822 Contact with and (suspected) exposure to COVID-19; Z68.26 Body mass index [BMI] 26.0-26.9, adult; Z79.84 Long term (current) use of oral hypoglycemic drugs
CPT/HCPCS: 36415 ×2; 50590; 52332; 71046; 74018; 80048; 82948; 85025; 87086; 93005; 94640; C1758; C1769; C2617; J1100; J1580; J2001; J2250; J2370; J2405; J2543; J2704; J3010; Q9967; U0002